=== PATIENT | male | born 1935 | race Caucasian/White ===

== ENCOUNTER 2016-05-02 08:34 | Day surgery (SDC) | payer MEDICARE, OTHER ==
[2016-04-29 13:28] VITALS: BMI 28.8
[~2016-05-02 08:34] MED LIST: HYDROmorphone 1 MG/ML 1 ML SYRINGE IVP PRN; LACTATED RINGERS 1,000 ML IV SCH; LIDOCAINE 1% 20 ML VIAL (10MG/ML) FOR IV START INTRADERMA PRN; ONDANSETRON 4 MG/2 ML VIAL IVP ONE; Pre Op ABX Message 1 EACH MISC MISCELLANE ONE
[2016-05-02 09:20] VITALS: TEMP 98.1
[2016-05-02 10:05] LABS: INR 1.5 (<1.1); Prothrombin Time 14.2 sec (9.0-12.0)
[2016-05-02] MEDS ORDERED: SODIUM CHLORIDE 0.9% IV ONE ×4 (10:45→11:26)
[2016-05-02] MEDS ORDERED: METHYLENE BLUE IV ONE ×4 (10:45→11:26)
[2016-05-02] MEDS ORDERED: ROCURONIUM BROMIDE 10 MG/ML 10 ML VIAL IV ONE (10:47)
[2016-05-02] MEDS ORDERED: PROPOFOL 10 MG/ML 20 ML VIAL IV ONE (10:47)
[2016-05-02] MEDS ORDERED: SUCCINYLCHOLINE CHLORIDE 100 MG/5 ML SYR IV ONE (10:47)
[2016-05-02] MEDS ORDERED: NEOSTIGMINE 1 MG/ML 10 ML VIAL ONE (10:47)
[2016-05-02] MEDS ORDERED: fentaNYL (PF) 50 MCG/ML 2 ML AMP ONE (10:47)
[2016-05-02] MEDS ORDERED: LIDOCAINE 1% INJ 10MG/ML (20 ML MDV) ONE (10:47)
[2016-05-02] MEDS ORDERED: MIDAZOLAM 2 MG/2 ML VIAL ONE (10:47)
[2016-05-02] MEDS ORDERED: GLYCOPYRROLATE 0.2 MG/ML 2 ML VIAL ONE (10:47)
[2016-05-02] MEDS ORDERED: SODIUM CHLORIDE 0.9% 100 ML with ceFAZolin 2,000 MG IV ONE ×2 (11:21)
[2016-05-02] MEDS ORDERED: CLINDAMYCIN 1,800 MG in SODIUM CHLORIDE 0.9% IRRIGATIO 3,000 ML IRRIGATION ONE (11:27)
[2016-05-02 12:57] VITALS: RESP 18
[2016-05-02 13:29] VITALS: PULSE 50
[2016-05-02 13:58] VITALS: BP 140/79
--- NOTE | 2016-05-03 15:36 | P.OP ---
Date of Procedure: 05/02/16 Procedure(s) Performed: PREOPERATIVE DIAGNOSES: 1. Left knee superficial chronic abscess 2. History of left knee replacement arthroplasty POSTOPERATIVE DIAGNOSES: 1. Left knee deep chronic abscess involving patellar bone but not into the joint 2. History of left knee replacement arthroplasty PROCEDURES PERFORMED: 1. Left knee deep chronic abscess excisional debridement 2. Open wet-to-dry packing ANESTHESIA: Spinal VALVE STEAMER: Lilian Fernandez PA-C (assistance with exposure, hemostasis, retraction, fixation, closure, dressing, splint) COMPLICATIONS: None ESTIMATED BLOOD LOSS: 25 mL. DISPOSITION: To post-anesthesia care unit INDICATIONS: Mr. Damico is a 76-year-old male with a history of bilateral knee replacement with chronic infection involving the right knee. He is on chronic suppressive antibiotics for this problem. His left knee has developed a superficial ulcer which has been draining for several weeks, despite office debridement and wet-to-dry packing performed by visiting nurse. Previous aspirations with cultures of his left knee intra-articular fluid have not revealed any evidence of infection of this joint. Considering these difficulties, I have advised formal operative debridement of the superficial abscess with possible placement of a wound VAC device. I have gone through the steps of the operation as well as potential risks and complications, as being inclusive of, but not limited to: Bleeding, infection, scarring, discomfort, blood vessel and/or nerve damage, need for further surgery, involvement of the left knee replacement arthroplasty in the infection, stiffness of the knee, need for continued chronic wound care, failure to heal the wound, loss of limb or life, and other risks. He is aware these risks and wishes to proceed with surgery. The consent form has been signed. PROCEDURE: After appropriate consent was obtained, the patient was taken to the operating room placed in the supine position. Anesthesia was initiated, and after confirmation of adequate anesthesia, the patient was carefully positioned. Care was taken to make sure that all pressure points were adequately padded. Prepping and draping were completed in the usual aseptic fashion using ChloraPrep. Timeout was called, confirming patient identity, side , procedure, and administration of antibiotics, which were held until after the debridement and further cultures had been performed.. The superficial abscess was approached through a midline longitudinal incision directly through the raised discolored skin and over the draining wound. Length of the incision was 5 cm. Gross pus was not encountered, however necrotic subcutaneous tissues were noted and were debrided sharply with a knife , excising necrotic fatty tissue and scar tissue/fascia. Dissection proceeded down to the patellar surface wear was noted that there was a small crater approximately 1 cm in size and the superficial anterior aspect of the bone. Careful evaluation of the area showed no evidence of deeper involvement into the joint. To be additionally sure that this abscess did not communicate with the joint, approximately 60 mL of saline marked with methylene blue dye was injected into the knee on the medial side and the knee was taken through range of motion. Careful evaluation of the patellofemoral joint and where the abscess was located showed no evidence of escape of dye. The dye was subsequently removed using a needle. The crater within the superficial aspect of the patella was thoroughly debrided using curettes as well as rongeur. The depth of the crater was approximately 5 mm. All suspicious material in the area was removed sharply and excised. Subsequent, thorough pulse lavage irrigation was performed using antibiotic containing solution. A wet-to-dry dressing was applied using iodoform gauze moistened with saline. No closure of the wound was performed. The wound was too small to allow a wound VAC to be applicable in this case. Patient tolerated the procedure well and taken to recovery room in stable condition. Sponge and needle counts were correct.
== END 2016-05-02 14:14 | disposition home health service (06) ==
LOC: OR 08:34
PROVIDERS: ATTEND Orthopaedic Surgery
DX: M86.68 Other chronic osteomyelitis, other site (principal); M71.062 Abscess of bursa, left knee; I10 Essential (primary) hypertension; K21.9 Gastro-esophageal reflux disease without esophagitis; F03.90 Unspecified dementia, unspecified severity, without behavioral disturbance, psychotic disturbance, mood disturbance, and anxiety; Z79.2 Long term (current) use of antibiotics; Z88.0 Allergy status to penicillin; Z88.8 Allergy status to other drugs, medicaments and biological substances; Z88.6 Allergy status to analgesic agent; Z91.040 Latex allergy status; Z86.718 Personal history of other venous thrombosis and embolism; Z79.01 Long term (current) use of anticoagulants; Z79.899 Other long term (current) drug therapy; Z96.653 Presence of artificial knee joint, bilateral
CPT/HCPCS: 11044; 85610; 87070; 87205; 87075; J2250; J2710; J2405; J2001; Q9968; J3010; J0690; J0330; J2704

== ENCOUNTER 2016-09-15 14:57 | Emergency (ER) | payer MEDICARE, OTHER ==
[2016-09-15] MEDS: SODIUM CHLORIDE 0.9% 1,000 ML IV STA (15:50)
[2016-09-15 15:51] LABS: Basophils # (A) 0.1 k/uL (0-0.2); Basophils % (A) 1 %; CH 27.5; CHCM 30.3; Eosinophils # (A) 0.1 k/uL (0-0.7); Eosinophils % (A) 2 %; HCT 36.2 % (39.0-53.0); HDW 3.33; HGB 10.7 gm/dL (13.0-17.5); Hypochromasia Marked; Luc # (Auto) 0.17; Luc % (Auto) 2; Lymphocytes # (A) 0.6 k/uL (1.0-4.8); Lymphocytes % (A) 7 %; MCHC 29.6 g/dL (31.0-37.0); MCV 91.2 fL (80.0-100.0); Mean Platelet Volume 7.6; Monocytes # (A) 0.6 k/uL (0-1.0); Monocytes % (A) 7 %; Neutrophils # (A) 7.3 k/uL (1.3-7.7); Neutrophils % (A) 83 %; RBC 3.97 m/uL (4.30-5.90); WBC 8.8 k/uL (3.8-10.6); WBC (Perox) 8.77
[2016-09-15 15:55] LABS: Partial Thromboplastin Time 54.3 sec (22.0-30.0)
--- NOTE | 2016-09-15 15:59 | ED ---
General Adult HPI - General Chief complaint: Recheck/Abnormal Lab/Rx Stated complaint: Heart Palps sent by Dr Candelaria Time Seen by Provider: 09/15/16 15:09 Source: patient, RN notes reviewed, old records reviewed Mode of arrival: wheelchair Limitations: no limitations - History of Present Illness Initial comments: This is a 80-year-old male to the ER for evaluation of weakness and low blood pressure. Patient has significant medical history for leg infections chronic wound care. Patient's infections have been persistent. No recent fevers. No Wallback chest fissures with her headache. Patient was found to have low blood pressure the normal at doctor's office and sent to ER. Presents he really felt off, now feels fine upon arrival to urgent patient states his blood pressure is much improved back to normal at this time. [place] recent episodes of nausea vomiting or diarrhea no fevers or medication changes - Related Data Home Medications Medication Instructions Recorded Confirmed Ascorbic Acid [Vitamin C] 1,000 mg PO DAILY@1700 09/09/13 05/02/16 Calcitriol 0.5 mcg PO DAILY@1700 09/09/13 05/02/16 Doxazosin [Cardura] 2 mg PO HS 09/09/13 05/02/16 Famotidine 40 mg PO DAILY 09/09/13 05/02/16 Ferrous Sulfate [Feosol] 325 mg PO DAILY@1700 09/09/13 05/02/16 Warfarin [Coumadin] 5 mg PO SUTUWETHFRSA@1700 09/09/13 05/02/16 Gabapentin [Neurontin] 900 mg PO HS 05/08/14 05/02/16 Gabapentin 600 mg PO BID@0600,1400 05/23/14 05/02/16 Cholecalciferol [Vitamin D3] 1,000 unit PO DAILY@1200 02/04/15 05/02/16 Multivitamins, Thera [Theragran] 1 each PO DAILY 02/04/15 05/02/16 Vitamin E 1,000 unit PO DAILY 02/04/15 05/02/16 Cefadroxil [Duricef] 500 mg PO Q12HR 04/29/16 05/02/16 Cetirizine HCl 10 mg PO DAILY 04/29/16 05/02/16 Previous Rx's Medication Instructions Recorded Hydrocodone/Acetaminophen [[place] 1 - 2 each PO Q6HR PRN #90 tab 05/13/14 5-325] HYDROcodone/APAP 5-325MG [[place] 5] 1 each PO Q4HR PRN #40 tab 05/02/16 Sennosides-Docusate Sodium 1 tab PO BID #60 tablet 05/02/16 [Senokot-S] Allergies Allergy/AdvReac Type Severity Reaction Status Date / Time aspirin AdvReac Unknown Verified 09/15/16 15:06 diphenhydramine AdvReac Unknown Verified 09/15/16 15:06 latex AdvReac Rash/Hives Verified 09/15/16 15:06 lorazepam [From Ativan] AdvReac Hallucinati Verified 09/15/16 15:06 ons Penicillins AdvReac Unknown Verified 09/15/16 15:06 Review of Systems ROS Statement: Those systems with pertinent positive or pertinent negative responses have been documented in the HPI. ROS Other: All systems not noted in ROS Statement are negative. Past Medical History Past Medical History: Dementia, Deep Vein Thrombosis (DVT), Osteoarthritis (OA) Additional Past Medical History / Comment(s): sepsis, neuropathy, PAST CELLULITIS, ANEMIA, lt hip fracture 05-11-14,rt.knee wounds, History of Any Multi-Drug Resistant Organisms: MRSA Date of last positivie culture/infection: 05-08-14 MDRO Source:: wound culture right leg Past Surgical History: Adenoidectomy, Appendectomy, Bowel Resection, Joint Replacement, Tonsillectomy Additional Past Surgical History / Comment(s): B\L knee replacements,bowel sx pt stated not cancer but ended up colostomy (2005), green field filter, orif lt hip, dino/screws, Past Anesthesia/Blood Transfusion Reactions: No Reported Reaction Past Psychological History: Depression Smoking Status: Never smoker Past Alcohol Use History: None Reported Past Drug Use History: None Reported - Past Family History Father Additional Family Medical History / Comment(s): at age 45 from cirrhosis of the liver. Mother Family Medical History: Dementia General Exam Limitations: no limitations General appearance: alert, in no apparent distress Head exam: Present: atraumatic, normocephalic, normal inspection Eye exam: Present: normal appearance, PERRL, EOMI. Absent: scleral icterus, conjunctival injection, periorbital swelling ENT exam: Present: normal exam, mucous membranes dry Neck exam: Present: normal inspection. Absent: tenderness, meningismus, lymphadenopathy Respiratory exam: Present: normal lung sounds bilaterally. Absent: respiratory distress, wheezes, rales, rhonchi, stridor Cardiovascular Exam: Present: normal rhythm, tachycardia, normal heart sounds. Absent: systolic murmur, diastolic murmur, rubs, gallop, clicks GI/Abdominal exam: Present: soft, normal bowel sounds. Absent: distended, tenderness, guarding, rebound, rigid Extremities exam: Present: normal inspection, full ROM, normal capillary refill. Absent: tenderness, pedal edema, joint swelling, calf tenderness Back exam: Present: normal inspection Neurological exam: Present: alert, oriented X3, CN II-XII intact Psychiatric exam: Present: normal affect, normal mood Skin exam: Present: warm, dry, intact, normal color. Absent: rash Course Vital Signs 09/15/16 09/15/16 15:03 15:52 Temperature 97.5 F L Pulse Rate 104 H 97 Respiratory 20 20 Rate Blood Pressure 112/70 115/77 O2 Sat by Pulse 99 99 Oximetry - Reevaluation(s) Reevaluation #1: 09/15/16 16:09 Blood pressure normal and stable, improving with fluid administration Medical Decision Making - Medical Decision Making 80 male in the ER for evaluation. Patient will return to the ER today for evaluation of low blood pressure. Patient had normal doctor's appointment today was noted to have low blood pressure and sent here for evaluation. Upon arrival to emergency room patient's blood pressure self-correct, patient has no complaints. No chest pain shortness breath or abdominal pain no fevers. Patient is to mild dehydration - Lab Data Result diagrams: 09/15/16 15:30 Lab Results 09/15/16 09/15/16 09/15/16 Range/Units 15:30 15:30 15:30 WBC 8.8 (3.8-10.6) k/uL RBC 3.97 L (4.30-5.90) m/uL Hgb 10.7 L (13.0-17.5) gm/dL Hct 36.2 L (39.0-53.0) % MCV 91.2 (80.0-100.0) fL MCH 27.0 (25.0-35.0) pg MCHC 29.6 L (31.0-37.0) g/dL RDW 16.0 H (11.5-15.5) % Plt Count 360 (150-450) k/uL Neutrophils % 83 % Lymphocytes % 7 % Monocytes % 7 % Eosinophils % 2 % Basophils % 1 % Neutrophils # 7.3 (1.3-7.7) k/uL Lymphocytes # 0.6 L (1.0-4.8) k/uL Monocytes # 0.6 (0-1.0) k/uL Eosinophils # 0.1 (0-0.7) k/uL Basophils # 0.1 (0-0.2) k/uL Hypochromasia Marked PT 52.5 H (9.0-12.0) sec INR 5.2 H* (<1.1) APTT 54.3 H (22.0-30.0) sec Total Creatine Kinase 44 L (55-170) U/L Disposition Clinical Impression: Abscess of leg, Cellulitis of leg Disposition: HOME SELF-CARE Condition: Good Instructions: Chronic Wound Care (ED) Referrals: Charly Garay MD [Primary Care Provider] - 1-2 days
[2016-09-15 16:00] LABS: Prothrombin Time 52.5 sec (9.0-12.0)
[2016-09-15 16:02] LABS: Calcium 8.6 mg/dL (8.4-10.2); Creatine Kinase 44 U/L (55-170); Magnesium 1.9 mg/dL (1.6-2.3); Phosphorous 2.5 mg/dL (2.5-4.5); Potassium 4.6 mmol/L (3.5-5.1); Total Bilirubin 0.2 mg/dL (0.2-1.3); Total Protein 5.9 g/dL (6.3-8.2)
[2016-09-15 16:04] LABS: INR 5.2 (<1.1)
[2016-09-15 16:15] LABS: Creatine Kinase MB 1.4 ng/mL (0.0-2.4); Troponin I <0.012 ng/mL (0.000-0.034)
[2016-09-15 17:26] LABS: Appearance,Urine Cloudy (Clear); Bilirubin,Urine Negative (Negative); Glucose,Urine (UA) Negative (Negative); Granular Casts,Urine 4 /lpf (0); Ketones,Urine Negative (Negative); Leukocyte Esterase,Urine Large (Negative); Mucus,Urine Rare /hpf; Nitrite,Urine Negative (Negative); PH, Urine 5.5 (5.0-8.0); Particle Count 5346; Protein,Urine 1+ (Negative); RBC,Urine 7 /hpf (0-5); Specific Gravity,Urine 1.014 (1.001-1.035); UA Billing (MACRO vs. MICRO) MICRO; Urobilinogen,Urine <2.0 mg/dL (<2.0); WBC,Urine >182 /hpf (0-5)
[2016-09-15 17:47] VITALS: RESP 18
[2016-09-15] MEDS: SODIUM CHLORIDE 0.9% 500 ML IV STA (18:39)
[2016-09-15 19:50] VITALS: BP 136/72; PULSE 79; TEMP 98
== END 2016-09-15 19:25 | disposition home or self-care (01) ==
LOC: EC 14:57
DX: L02.419 Cutaneous abscess of limb, unspecified (principal); L03.119 Cellulitis of unspecified part of limb; I95.9 Hypotension, unspecified; E86.0 Dehydration; R00.0 Tachycardia, unspecified; D64.9 Anemia, unspecified; Z79.01 Long term (current) use of anticoagulants; Z79.899 Other long term (current) drug therapy; Z88.0 Allergy status to penicillin; Z88.6 Allergy status to analgesic agent; Z88.8 Allergy status to other drugs, medicaments and biological substances; Z91.040 Latex allergy status; Z86.718 Personal history of other venous thrombosis and embolism
CPT/HCPCS: 36415; 93005; 80053; 82550; 82553; 83605; 83735; 84100; 84484; 85025; 85610; 85730; 81001; 87086; 99285; 96360; 96361; A4425

== ENCOUNTER → 2019-04-06 | Outpatient (CLI) | payer MEDICARE, OTHER | END | disposition home or self-care (01) | LOC: RADMRIMAIN 14:53 | PROVIDERS: ATTEND Internal Medicine Infectious Disease | DX: Z53.9 Procedure and treatment not carried out, unspecified reason (principal) ==

== ENCOUNTER 2019-05-30 10:12 | Emergency (ER) | payer MEDICARE, OTHER ==
[2019-05-30] MEDS ORDERED: ACETAMINOPHEN TAB 500 MG TAB PO STA (10:46)
[2019-05-30] MEDS ORDERED: LIDOCAINE/EPINEPHR/TETRACAINE 5 ML BOTTLE TOPICAL ONE (10:47)
[2019-05-30] MEDS ORDERED: GELATIN SPONGE,ABSORB (SMALL) 1 EACH SPONGE TOPICAL STA (10:47)
[2019-05-30] MEDS ORDERED: SILVER NITRATE APPLICATOR 1 EACH STICK..EA. TOPICAL STA (10:47)
--- NOTE | 2019-05-30 10:52 | ED ---
General Adult HPI - General Chief complaint: Skin/Abscess/Foreign Body Stated complaint: Open wound Time Seen by Provider: 05/30/19 10:34 Source: patient, RN notes reviewed, old records reviewed Mode of arrival: ambulatory Limitations: no limitations - History of Present Illness Initial comments: Patient is an 83-year-old male who presents emergency department today for evaluation for a bleeding the wound from his buttocks. Patient reports that he is a resident of [facility], and was at the outpatient surgery center to have aspiration of his right knee. Patient reports that Dr. Montalvo was scheduled him to do the ultrasound guided needle aspiration of the right knee. When they were in the waiting room the noted the Patient had significant amount of blood over his pants and buttocks and was sitting in a pool blood. He presents emergency department tachycardic feeling somewhat weak. He was having the needle aspiration for concern for possible infection within the right knee due to wounds over the knee and concern that the wounds are origninating from the joint infection. Patient has knee replacement. Patient is on blood thinners but didn't have to stop them for the past 5 days prior to the knee aspiration. - Related Data Home Medications Medication Instructions Recorded Confirmed Ascorbic Acid [Vitamin C] 500 mg PO DAILY@1700 09/09/13 05/23/19 Ferrous Sulfate [Feosol] 325 mg PO DAILY@1700 09/09/13 05/21/19 Gabapentin [Neurontin] 900 mg PO BID 05/08/14 05/23/19 Cholecalciferol [Vitamin D3] 1,000 unit PO DAILY@1200 02/04/15 05/21/19 Multivitamins, Thera [Theragran] 1 tab PO DAILY 02/04/15 05/21/19 Hydrocodone/Acetaminophen [[place] 1 tab PO TID PRN 09/15/16 05/23/19 5-325] Warfarin Sodium [Coumadin] 3 mg PO DAILY 09/15/16 05/21/19 Acetaminophen Tab [Tylenol] 650 mg PO Q4H 05/21/19 05/21/19 Doxepin [SINEquan] 50 mg PO HS 05/21/19 05/21/19 Doxycycline [Vibramycin] 100 mg PO BID 05/21/19 05/21/19 Famotidine [Pepcid] 20 mg PO DAILY 05/21/19 05/21/19 Furosemide [Lasix] 20 mg PO DAILY 05/21/19 05/21/19 Metoprolol Succinate [Toprol XL] 25 mg PO DAILY 05/21/19 05/21/19 Spironolactone [Aldactone] 25 mg PO DAILY 05/21/19 05/21/19 Sucralfate [Carafate] 1 gm PO BID 05/21/19 05/23/19 Tamsulosin HCl [Flomax] 0.4 mg PO DAILY 05/21/19 05/23/19 Bisacodyl [Dulcolax] 1 supp RECTAL RT-DAILY PRN 05/23/19 05/23/19 Bismuth Subsalicylate 1 tab PO BID PRN 05/23/19 05/23/19 [Pepto-Bismol] Furosemide [Lasix] 40 mg PO DAILY 05/23/19 05/23/19 Hydrocortisone Cream 1 applic TOPICAL BID PRN 05/23/19 05/23/19 [Hydrocortisone 1% Cream] Ipratropium-Albuterol Nebulize 1 neb INHALATION Q6HR PRN 05/23/19 05/23/19 [Duoneb 0.5 mg-3 mg/3 ml Soln] Mag Hydrox/Al Hydrox/Simeth 15 ml PO Q6HR PRN 05/23/19 05/23/19 [Maalox] Magnesium Hydroxide [Milk of 30 ml PO DAILY PRN 05/23/19 05/23/19 Magnesia Concentrate] Menthol-Zinc Oxide Oint 1 applic TOPICAL BID 05/23/19 05/23/19 [Calmoseptine Oint] Na Phos,M-B/Na Phos,Di-Ba [Fleet 1 applic RECTAL DAILY PRN 05/23/19 05/23/19 Adult] Iuqabpts-Jkbauhvmrd-Kygj Oint 1 applic TOPICAL DAILY 05/23/19 05/23/19 [Triple Antibiotic Ointment] Non Formulary Drug 500 mg PO BID 05/23/19 05/23/19 Nystatin [Nystop] 1 applic TOPICAL BID 05/23/19 05/23/19 Polyvinyl Alcohol/Povidone 1 drop BOTH EYES BID PRN 05/23/19 05/23/19 [Freshkote Eye Drop] Triamcinolone 0.1% Ointment 1 applic TOPICAL BID 05/23/19 05/23/19 [Kenalog 0.1% Ointment] Previous Rx's Medication Instructions Recorded Cephalexin [Keflex] 500 mg PO Q6HR 7 Days #28 cap 05/30/19 Allergies Allergy/AdvReac Type Severity Reaction Status Date / Time aspirin AdvReac Unknown Verified 05/23/19 12:45 diphenhydramine AdvReac Unknown Verified 05/23/19 12:45 latex AdvReac Rash/Hives Verified 05/23/19 12:45 lorazepam [From Ativan] AdvReac Hallucinati Verified 05/23/19 12:45 ons Penicillins AdvReac Unknown Verified 05/23/19 12:45 Review of Systems ROS Statement: Those systems with pertinent positive or pertinent negative responses have been documented in the HPI. ROS Other: All systems not noted in ROS Statement are negative. Past Medical History Past Medical History: Atrial Fibrillation, Chest Pain / Angina, Dementia, Deep Vein Thrombosis (DVT), GERD/Reflux, Osteoarthritis (OA), Renal Disease Additional Past Medical History / Comment(s): sepsis, neuropathy, PAST CELLULITIS, ANEMIA, lt hip fracture 05-11-14,rt.knee wounds, vitamin D deficiency, weakness,BPH, History of Any Multi-Drug Resistant Organisms: MRSA Date of last positivie culture/infection: 11/24/16 MDRO Source:: Right Knee Past Surgical History: Adenoidectomy, Appendectomy, Bowel Resection, Joint Replacement, Tonsillectomy Additional Past Surgical History / Comment(s): B\L knee replacements,bowel sx pt stated not cancer but ended up colostomy (2005), green field filter, orif lt hip, dino/screws, Past Anesthesia/Blood Transfusion Reactions: No Reported Reaction Past Psychological History: Depression Smoking Status: Never smoker Past Alcohol Use History: Rare Past Drug Use History: None Reported - Past Family History Father Additional Family Medical History / Comment(s): at age 45 from cirrhosis of the liver. Mother Family Medical History: Dementia General Exam - General Exam Comments Initial Comments: 83-year-old male. Alert and oriented. Limitations: no limitations General appearance: alert, in no apparent distress Head exam: Present: atraumatic, normocephalic, normal inspection Eye exam: Present: normal appearance, PERRL, EOMI. Absent: scleral icterus, conjunctival injection, periorbital swelling ENT exam: Present: normal exam, mucous membranes moist Neck exam: Present: normal inspection. Absent: tenderness, meningismus, lymphadenopathy Respiratory exam: Present: normal lung sounds bilaterally. Absent: respiratory distress, wheezes, rales, rhonchi, stridor Cardiovascular Exam: Present: regular rate, normal rhythm, normal heart sounds. Absent: systolic murmur, diastolic murmur, rubs, gallop, clicks GI/Abdominal exam: Present: soft, normal bowel sounds, other (colostomy bag). Absent: distended, tenderness, guarding, rebound, rigid exam: Present: other (Patient has evidence of pressure ulcers over the buttocks. Patient has an open bleeding sore on the upper buttocks the left side.). Absent: normal inspection Extremities exam: Present: normal inspection, full ROM, normal capillary refill, other (Patient has 2 wounds over the right knee. Patient has redness and swelling to the right knee.). Absent: tenderness, pedal edema, joint swelling, calf tenderness Back exam: Present: normal inspection, full ROM Neurological exam: Present: alert, oriented X3, CN II-XII intact Psychiatric exam: Present: normal affect, normal mood Skin exam: Present: warm, dry, intact, normal color. Absent: rash Course Vital Signs 05/30/19 05/30/19 05/30/19 10:20 11:00 12:00 Temperature 98.2 F Pulse Rate 128 H 112 H 87 Respiratory 18 18 18 Rate Blood Pressure 140/88 123/87 102/73 O2 Sat by Pulse 98 100 Oximetry 05/30/19 05/30/19 05/30/19 13:00 14:00 15:00 Temperature Pulse Rate 91 100 96 Respiratory 17 18 17 Rate Blood Pressure 116/72 141/88 105/70 O2 Sat by Pulse Oximetry 05/30/19 05/30/19 05/30/19 16:00 17:00 18:00 Temperature 98.3 F Pulse Rate 88 89 88 Respiratory 18 18 18 Rate Blood Pressure 113/78 122/70 127/75 O2 Sat by Pulse Oximetry EKG Findings - EKG Comments: EKG Findings:: EKG performed at 1024 shows sinus tachycardia, left axis deviation. Right bundle lavonne block.. Prior to the anterolateral infarct age undetermined. Ventricular rate of 123 beats were minute. Pulse 184 ms. QRS duration is 122 ms. QT QTc is 286/409 ms. Medical Decision Making - Medical Decision Making Patient is an 9-year-old male who presents emergency Department today from outpatient setting with complaints of a bleeding wound over his buttocks. Patient had the wound cauterized with silver nitrate and wound was bleeding was controlled after lidocaine with epinephrine placement as well. Patient tolerated procedure well. Patient arrived to the emergency department somewhat tachycardic. Concern for possible blood loss related tachycardia. Patient's b lood work was obtained. Hemoglobin is stable. White blood cell count was normal at 5.4. He was sent for all Patient also sher sound guided the aspiration. He had stopped his Coumadin for a few days to have this done. This was completed emergency department by Dr. Ace. I discussed the concern for possibility of infection as well as related tachycardia. He does have evidence of urinary tract infection. Patient was given 1 g of Rocephin and emergency department. Blood cultures will completed. Patient's knee aspiration shows 3000 PMNs. It was synovial fluid in serous. No syncope and pus on the aspiration. Patient case was discussed with Dr. Montalvo's orthopedic. He discussed that he can follow-up with him out patiently. Patient will be started on broad-spectrum antibiotic. We discussed the case with Dr. Sánchez whom did not want to admit the Patient. - Lab Data Result diagrams: 05/30/19 10:34 05/30/19 10:34 Lab Results 05/30/19 05/30/19 05/30/19 Range/Units 10:34 10:34 10:34 WBC 5.8 (3.8-10.6) k/uL RBC 5.24 (4.30-5.90) m/uL Hgb 14.2 D (13.0-17.5) gm/dL Hct 48.6 (39.0-53.0) % MCV 92.8 (80.0-100.0) fL MCH 27.1 (25.0-35.0) pg MCHC 29.2 L (31.0-37.0) g/dL RDW 16.0 H (11.5-15.5) % Plt Count 152 (150-450) k/uL Neutrophils % 73 % Lymphocytes % 10 % Monocytes % 9 % Eosinophils % 3 % Basophils % 0 % Neutrophils # 4.2 (1.3-7.7) k/uL Lymphocytes # 0.6 L (1.0-4.8) k/uL Monocytes # 0.5 (0-1.0) k/uL Eosinophils # 0.2 (0-0.7) k/uL Basophils # 0.0 (0-0.2) k/uL Hypochromasia Marked ESR (0-15) mm/hr PT 13.1 H (9.0-12.0) sec INR 1.3 H (<1.2) APTT 27.1 (22.0-30.0) sec Sodium (137-145) mmol/L Potassium (3.5-5.1) mmol/L Chloride (98-107) mmol/L Carbon Dioxide (22-30) mmol/L Anion Gap mmol/L BUN (9-20) mg/dL Creatinine (0.66-1.25) mg/dL Est GFR (CKD-EPI)AfAm (>60 ml/min/1.73 sqM) Est GFR (CKD-EPI)NonAf (>60 ml/min/1.73 sqM) Glucose (74-99) mg/dL Plasma Lactic Acid Jacky (0.7-2.0) mmol/L Calcium (8.4-10.2) mg/dL Total Bilirubin (0.2-1.3) mg/dL AST (17-59) U/L ALT (4-49) U/L Alkaline Phosphatase (38-126) U/L Total Protein (6.3-8.2) g/dL Albumin (3.5-5.0) g/dL Urine Color Urine Appearance (Clear) Urine pH (5.0-8.0) Ur Specific [place] (1.001-1.035) Urine Protein (Negative) Urine Glucose (UA) (Negative) Urine Ketones (Negative) Urine Blood (Negative) Urine Nitrite (Negative) Urine Bilirubin (Negative) Urine Urobilinogen (<2.0) mg/dL Ur Leukocyte Esterase (Negative) Urine RBC (0-5) /hpf Urine WBC (0-5) /hpf Urine WBC Clumps (None) /hpf Ur Squamous Epith Cells (0-4) /hpf Urine Bacteria (None) /hpf Urine Mucus (None) /hpf Fluid Source Fluid Color Fluid Appearance Fluid RBC /uL Fluid Nucleated Cells /uL Fluid Polynuclear WBCs % Fluid Mononuclear WBCs % Blood Type B Positive Blood Type Recheck B Pos Bld Type Recheck Status No Antibody Screen NEGATIVE Spec Expiration Date 06/02/2019233305/30/19 05/30/19 05/30/19 Range/Units 10:34 10:34 12:05 WBC (3.8-10.6) k/uL RBC (4.30-5.90) m/uL Hgb (13.0-17.5) gm/dL Hct (39.0-53.0) % MCV (80.0-100.0) fL MCH (25.0-35.0) pg MCHC (31.0-37.0) g/dL RDW (11.5-15.5) % Plt Count (150-450) k/uL Neutrophils % % Lymphocytes % % Monocytes % % Eosinophils % % Basophils % % Neutrophils # (1.3-7.7) k/uL Lymphocytes # (1.0-4.8) k/uL Monocytes # (0-1.0) k/uL Eosinophils # (0-0.7) k/uL Basophils # (0-0.2) k/uL Hypochromasia ESR 58 H (0-15) mm/hr PT (9.0-12.0) sec INR (<1.2) APTT (22.0-30.0) sec Sodium 137 (137-145) mmol/L Potassium 5.4 H (3.5-5.1) mmol/L Chloride 110 H (98-107) mmol/L Carbon Dioxide 16 L (22-30) mmol/L Anion Gap 11 mmol/L BUN 36 H (9-20) mg/dL Creatinine 2.32 H (0.66-1.25) mg/dL Est GFR (CKD-EPI)AfAm 29 (>60 ml/min/1.73 sqM) Est GFR (CKD-EPI)NonAf 25 (>60 ml/min/1.73 sqM) Glucose 115 H (74-99) mg/dL Plasma Lactic Acid Jacky 1.5 (0.7-2.0) mmol/L Calcium 9.1 (8.4-10.2) mg/dL Total Bilirubin 0.3 (0.2-1.3) mg/dL AST 24 (17-59) U/L ALT 13 (4-49) U/L Alkaline Phosphatase 73 (38-126) U/L Total Protein 6.8 (6.3-8.2) g/dL Albumin 3.2 L (3.5-5.0) g/dL Urine Color Urine Appearance (Clear) Urine pH (5.0-8.0) Ur Specific [place] (1.001-1.035) Urine Protein (Negative) Urine Glucose (UA) (Negative) Urine Ketones (Negative) Urine Blood (Negative) Urine Nitrite (Negative) Urine Bilirubin (Negative) Urine Urobilinogen (<2.0) mg/dL Ur Leukocyte Esterase (Negative) Urine RBC (0-5) /hpf Urine WBC (0-5) /hpf Urine WBC Clumps (None) /hpf Ur Squamous Epith Cells (0-4) /hpf Urine Bacteria (None) /hpf Urine Mucus (None) /hpf Fluid Source Fluid Color Fluid Appearance Fluid RBC /uL Fluid Nucleated Cells /uL Fluid Polynuclear WBCs % Fluid Mononuclear WBCs % Blood Type Blood Type Recheck Bld Type Recheck Status Antibody Screen Spec Expiration Date 05/30/19 05/30/19 Range/Units 12:45 15:40 WBC (3.8-10.6) k/uL RBC (4.30-5.90) m/uL Hgb (13.0-17.5) gm/dL Hct (39.0-53.0) % MCV (80.0-100.0) fL MCH (25.0-35.0) pg MCHC (31.0-37.0) g/dL RDW (11.5-15.5) % Plt Count (150-450) k/uL Neutrophils % % Lymphocytes % % Monocytes % % Eosinophils % % Basophils % % Neutrophils # (1.3-7.7) k/uL Lymphocytes # (1.0-4.8) k/uL Monocytes # (0-1.0) k/uL Eosinophils # (0-0.7) k/uL Basophils # (0-0.2) k/uL Hypochromasia ESR (0-15) mm/hr PT (9.0-12.0) sec INR (<1.2) APTT (22.0-30.0) sec Sodium (137-145) mmol/L Potassium (3.5-5.1) mmol/L Chloride (98-107) mmol/L Carbon Dioxide (22-30) mmol/L Anion Gap mmol/L BUN (9-20) mg/dL Creatinine (0.66-1.25) mg/dL Est GFR (CKD-EPI)AfAm (>60 ml/min/1.73 sqM) Est GFR (CKD-EPI)NonAf (>60 ml/min/1.73 sqM) Glucose (74-99) mg/dL Plasma Lactic Acid Jacky (0.7-2.0) mmol/L Calcium (8.4-10.2) mg/dL Total Bilirubin (0.2-1.3) mg/dL AST (17-59) U/L ALT (4-49) U/L Alkaline Phosphatase (38-126) U/L Total Protein (6.3-8.2) g/dL Albumin (3.5-5.0) g/dL Urine Color Yellow Urine Appearance Cloudy (Clear) Urine pH 5.0 (5.0-8.0) Ur Specific [place] 1.017 (1.001-1.035) Urine Protein 1+ H (Negative) Urine Glucose (UA) Negative (Negative) Urine Ketones Negative (Negative) Urine Blood Moderate H (Negative) Urine Nitrite Negative (Negative) Urine Bilirubin Negative (Negative) Urine Urobilinogen <2.0 (<2.0) mg/dL Ur Leukocyte Esterase Large H (Negative) Urine RBC 134 H (0-5) /hpf Urine WBC >182 H (0-5) /hpf Urine WBC Clumps Many H (None) /hpf Ur Squamous Epith Cells <1 (0-4) /hpf Urine Bacteria Rare H (None) /hpf Urine Mucus Rare H (None) /hpf Fluid Source Synovial Fluid Color Yellow Fluid Appearance Hazy Fluid RBC 1195 /uL Fluid Nucleated Cells 2990 /uL Fluid Polynuclear WBCs 96 % Fluid Mononuclear WBCs 4 % Blood Type Blood Type Recheck Bld Type Recheck Status Antibody Screen Spec Expiration Date 05/30/19 10:52 EKG performed at 10:24 AM shows sinus tachycardia, left axis deviation. Right bundle branch block. Inferior infarct age undetermined. Anterolateral infarct age-indeterminate. Abnormal EKG. Disposition Clinical Impression: Bleeding from wound, UTI (urinary tract infection), Chronic knee pain Disposition: ADMITTED IP TO THIS HOSP Condition: Stable Instructions (If sedation given, give patient instructions): Urinary Tract Infection in Men (ED) Additional Instructions: Patient advised to take the antibiotic as prescribed. Recommended follow-up with orthopedic next week. Take the antibiotics as prescribed and resume Coumadin. Prescriptions: Cephalexin [Keflex] 500 mg PO Q6HR 7 Days #28 cap Is patient prescribed a controlled substance at d/c from ED?: No Referrals: Dwayne Coreas MD [Primary Care Provider] - 1-2 days Time of Disposition: 18:30
[2019-05-30] MEDS ORDERED: SODIUM CHLORIDE 0.9% 1,000 ML IV SCH (11:00)
[2019-05-30 11:14] LABS: Basophils % (A) 0 %; Eosinophils # (A) 0.2 k/uL (0-0.7); Eosinophils % (A) 3 %; HCT 48.6 % (39.0-53.0); Hypochromasia Marked; Lymphocytes # (A) 0.6 k/uL (1.0-4.8); Lymphocytes % (A) 10 %; MCH 27.1 pg (25.0-35.0); MCHC 29.2 g/dL (31.0-37.0); MCV 92.8 fL (80.0-100.0); Mean Platelet Volume 6.7; Monocytes # (A) 0.5 k/uL (0-1.0); Monocytes % (A) 9 %; Neutrophils # (A) 4.2 k/uL (1.3-7.7); Neutrophils % (A) 73 %; Platelet Count 152 k/uL (150-450); RBC 5.24 m/uL (4.30-5.90); WBC 5.8 k/uL (3.8-10.6)
[2019-05-30] MEDS: SODIUM CHLORIDE 0.9% 500 ML 500 ML IV SCH ×2 (11:17→12:56)
[2019-05-30 11:18] LABS: Albumin 3.2 g/dL (3.5-5.0); Calcium 9.1 mg/dL (8.4-10.2); Potassium 5.4 mmol/L (3.5-5.1); Total Bilirubin 0.3 mg/dL (0.2-1.3); Total Protein 6.8 g/dL (6.3-8.2)
[2019-05-30 11:23] LABS: HGB 14.2 gm/dL (13.0-17.5)
[2019-05-30 11:27] LABS: INR 1.3 (<1.2); Partial Thromboplastin Time 27.1 sec (22.0-30.0); Prothrombin Time 13.1 sec (9.0-12.0)
[2019-05-30 13:20] LABS: Appearance,Urine Cloudy (Clear); Bacteria,Urine Rare /hpf; Bilirubin,Urine Negative (Negative); Blood,Urine Moderate (Negative); Color,Urine Yellow; Glucose,Urine (UA) Negative (Negative); Ketones,Urine Negative (Negative); Leukocyte Esterase,Urine Large (Negative); Mucus,Urine Rare /hpf; Nitrite,Urine Negative (Negative); Protein,Urine 1+ (Negative); RBC,Urine 134 /hpf (0-5); Specific Gravity,Urine 1.017 (1.001-1.035); Squamous Epithelial Cell,Urine <1 /hpf (0-4); Urobilinogen,Urine <2.0 mg/dL (<2.0); WBC,Urine >182 /hpf (0-5)
[2019-05-30] MEDS ORDERED: cefTRIAXone IN SWFI 1,000 MG/10 ML SYRINGE IVP STA (13:36)
[2019-05-30] MEDS ORDERED: DILTIAZEM DRIP BOLUS FROM BAG 1 MG SOLN IV ONE (15:52)
[2019-05-30] MEDS ORDERED: MORPHINE SULFATE 2 MG/ML SYRINGE IVP ONE (16:31)
[2019-05-30 17:45] LABS: Appearance,BF Hazy; Color,BF Yellow; Nucleated Cells, Body Fluid 2990 /uL; RBC, Body Fluid 1195 /uL
[2019-05-30 18:06] VITALS: RESP 18; TEMP 98.3
[2019-05-30 18:23] LABS: Mononuclear WBC,Body Fluid 4 %; Polynuclear WBC,Body Fluid 96 %; Total Cells Counted,Body Fluid 100
[2019-05-30 18:30] VITALS: BP 129/80; PULSE 80
--- NOTE | 2019-05-30 22:11 | US ---
Ultrasound guided right knee aspiration Date: 05/30/2019 History 83-year-old male with right total knee arthroplasty referred for aspiration. T84.59XA PROCEDURE: 1. Ultrasound of the right knee. 2. Arthrocentesis with ultrasound guidance. Technique: The procedure, risks, and alternatives, were discussed with the patient, who requested joi t we proceed. The consent form was signed, and teach-back occurred. The site/side of the procedure wa s marked with a line with participation by the patient. The accompanying paperwork was verified for c onsistency. A directed history and physical exam was performed prior to the procedure. Medication rec onciliation was performed by ancillary personnel. A critical pause was performed with assisting vamshi barnett just prior to the procedure and the patient's identity was confirmed using 2 identifiers. Imagin g guidance was utilized to select the precise skin entry point just prior to the procedure, lateral a pproach to the suprapatellar pouch. Initial ultrasound images demonstrate moderate hypoechogenicity in the suprapatellar pouch. This is t argeted for aspiration. Right knee was prepped and draped in the usual sterile fashion and local 1% lidocaine anesthesia was instilled. Under ultrasound guidance, an 18 gauge spinal needle was introduced into the suprapatellar pouch of t he right knee joint. There was the sensation of traversing very thickened tissues when entering the p resumed joint fluid. Ultrasound confirmed the position of the needle tip. Aspiration yielded no fluid. Needle tip was repositioned multiple times. Subsequently, 10 mL of prese rvative free, sterile saline was injected into the joint and the wash was aspirated. A total of 7 mL of yellow-tinged fluid was successfully aspirated. The specimen was labeled and sent to the lab for r equested analysis. The needle was then removed. The patient tolerated the procedure well. There were no immediate complications. After the procedure, the patient's condition was unchanged. Es timated blood loss was minimal. IMPRESSION: Presumed moderate joint effusion would not return any aspirate. This was comprised of very thickened tissue, possibly granulation tissue. However, 7 mL of yellow-tinged wash was successfully aspirated a nd sent for laboratory analysis.
== END 2019-05-30 18:31 | disposition other institution (70) ==
LOC: EC 10:12
DX: S31.829A Unspecified open wound of left buttock, initial encounter (principal); N39.0 Urinary tract infection, site not specified; G89.29 Other chronic pain; M25.561 Pain in right knee; R00.0 Tachycardia, unspecified; F32.9 Major depressive disorder, single episode, unspecified; K21.9 Gastro-esophageal reflux disease without esophagitis; D64.9 Anemia, unspecified; E55.9 Vitamin D deficiency, unspecified; F03.90 Unspecified dementia, unspecified severity, without behavioral disturbance, psychotic disturbance, mood disturbance, and anxiety; I48.91 Unspecified atrial fibrillation; N40.0 Benign prostatic hyperplasia without lower urinary tract symptoms; I25.2 Old myocardial infarction; G62.9 Polyneuropathy, unspecified; M19.90 Unspecified osteoarthritis, unspecified site; Z79.01 Long term (current) use of anticoagulants; Z79.899 Other long term (current) drug therapy; Z88.6 Allergy status to analgesic agent; Z88.8 Allergy status to other drugs, medicaments and biological substances; Z88.0 Allergy status to penicillin; Z86.14 Personal history of Methicillin resistant Staphylococcus aureus infection; Z86.718 Personal history of other venous thrombosis and embolism; Z96.653 Presence of artificial knee joint, bilateral; Z93.3 Colostomy status; X58.XXXA Exposure to other specified factors, initial encounter
CPT/HCPCS: 36415; 93005; 86900; 86901; 89060; 80053; 85652; 89050; 83605; 85025; 85610; 85730; 86850; 81001; 87040; 87070; 87086; 87205; 87075; 87102; 87077; 87186; 20611; 99285; 96374; 96375; 96361 ×6; J0696; J2270

== ENCOUNTER 2019-08-29 12:00 | Inpatient (IN) | payer MEDICARE, OTHER ==
[2019-08-29] MEDS ORDERED: DILTIAZEM DRIP BOLUS FROM BAG 1 MG SOLN IV ONE (12:10)
--- NOTE | 2019-08-29 12:17 | ED ---
General Adult HPI - General Chief complaint: Arrhythmia/Palpitations Stated complaint: Syncope Time Seen by Provider: 08/29/19 12:00 Source: patient, RN notes reviewed, old records reviewed Mode of arrival: EMS Limitations: no limitations - History of Present Illness Initial comments: This is an 83-year-old male who presents emergency Department feeling weak and lightheaded when he stands. According to the paramedics he was found to be in atrial fibrillation with rapid ventricular response and felt comfortable when he is lying down but as soon as he stood up he felt very lightheaded. Patient denies any chest pain shortness of breath or difficulty breathing. Patient denies any headache patient denies any numbness or focal weakness. Patient de nies any recent fever chills or cough. Patient denies any abdominal pain patient denies any nausea or vomiting or diarrhea. - Related Data Home Medications Medication Instructions Recorded Confirmed Ascorbic Acid [Vitamin C] 500 mg PO DAILY 09/09/13 08/29/19 Ferrous Sulfate [Feosol] 325 mg PO DAILY 09/09/13 08/29/19 Gabapentin [Neurontin] 300 mg PO BID@0800,1700 05/08/14 08/29/19 Cholecalciferol [Vitamin D3] 1,000 unit PO DAILY 02/04/15 08/29/19 Multivitamins, Thera [Theragran] 1 tab PO DAILY 02/04/15 08/29/19 Hydrocodone/Acetaminophen [[place] 1 tab PO HS 09/15/16 08/29/19 5-325] Doxycycline [Vibramycin] 100 mg PO BID@1000,1900 05/21/19 08/29/19 Famotidine [Pepcid] 20 mg PO DAILY 05/21/19 08/29/19 Furosemide [Lasix] 20 mg PO Q48H 05/21/19 08/29/19 Metoprolol Succinate [Toprol XL] 25 mg PO DAILY 05/21/19 08/29/19 Spironolactone [Aldactone] 25 mg PO DAILY 05/21/19 08/29/19 Sucralfate [Carafate] 1 gm PO DAILY@1700 05/21/19 08/29/19 Tamsulosin HCl [Flomax] 0.4 mg PO BID 05/21/19 08/29/19 Bisacodyl [Dulcolax] 10 mg RECTAL DAILY PRN 05/23/19 08/29/19 Ipratropium-Albuterol Nebulize 3 ml INHALATION RT-Q6H PRN 05/23/19 08/29/19 [Duoneb 0.5 mg-3 mg/3 ml Soln] Mag Hydrox/Al Hydrox/Simeth 15 ml PO Q6HR PRN 05/23/19 08/29/19 [Maalox] Magnesium Hydroxide [Milk of 30 ml PO DAILY PRN 05/23/19 08/29/19 Magnesia Concentrate] Na Phos,M-B/Na Phos,Di-Ba [Fleet 1 applic RECTAL DAILY PRN 05/23/19 08/29/19 Adult] Polyvinyl Alcohol/Povidone 1 drop BOTH EYES BID@0800,169905/23/19 08/29/19 [Freshkote Eye Drop] Triamcinolone 0.1% Ointment 1 applic TOPICAL BID PRN 05/23/19 08/29/19 [Kenalog 0.1% Ointment] ALPRAZolam [Xanax] 0.25 mg PO HS 08/29/19 08/29/19 Acetaminophen [Tylenol 8 Hour] 650 mg PO Q4H PRN 08/29/19 08/29/19 Doxepin HCl [SINEquan] 50 mg PO HS 08/29/19 08/29/19 Ertapenem [INVanz] 500 mg IVPB DAILY@169908/29/19 08/29/19 Furosemide [Lasix] 40 mg PO Q48H 08/29/19 08/29/19 Gabapentin 600 mg PO BID@0800,169908/29/19 08/29/19 HYDROcodone/APAP 5-325MG [[place] 1 tab PO Q8H PRN 08/29/19 08/29/19 5-325] Lactose-Reduced Food [Ensure Plus] 237 ml PO DAILY 08/29/19 08/29/19 Menthol [Biofreeze] 1 applic TOPICAL BID@0800,169908/29/19 08/29/19 Niacinamide 500 mg PO BID@0800,1700 08/29/19 08/29/19 Pepto-Bismol Tablet 1 tab PO BID PRN 08/29/19 08/29/19 Rivastigmine Tartrate [Exelon] 3 mg PO BID 08/29/19 08/29/19 Vitamins A and D [Vitamin A and D] 1 applic TOPICAL TID 08/29/19 08/29/19 Warfarin [Coumadin] 2 mg PO SUMOTUTH@1700 08/29/19 08/29/19 Warfarin [Coumadin] 3 mg PO WEFRSA@1700 08/29/19 08/29/19 Allergies Allergy/AdvReac Type Severity Reaction Status Date / Time aspirin Allergy Unknown Verified 08/29/19 12:34 diphenhydramine Allergy Unknown Verified 08/29/19 12:34 latex Allergy Rash/Hives Verified 08/29/19 12:34 Penicillins Allergy Unknown Verified 08/29/19 12:34 lorazepam [From Ativan] AdvReac Hallucinati Verified 08/29/19 12:34 ons Review of Systems ROS Statement: Those systems with pertinent positive or pertinent negative responses have been documented in the HPI. ROS Other: All systems not noted in ROS Statement are negative. Past Medical History Past Medical History: Atrial Fibrillation, Chest Pain / Angina, Dementia, Deep Vein Thrombosis (DVT), GERD/Reflux, Osteoarthritis (OA), Renal Disease Additional Past Medical History / Comment(s): sepsis, neuropathy, PAST CELLULITIS, ANEMIA, lt hip fracture 05-11-14,rt.knee wounds, vitamin D defic iency, weakness,BPH, History of Any Multi-Drug Resistant Organisms: ESBL, MRSA Date of last positivie culture/infection: 08/26/19 ESBL 11/24/16 MRSA MDRO Source:: ESBL URINE MRSA KNEE Past Surgical History: Adenoidectomy, Appendectomy, Bowel Resection, Joint Replacement, Tonsillectomy Additional Past Surgical History / Comment(s): B\L knee replacements,bowel sx pt stated not cancer but ended up colostomy (2005), green field filter, orif lt hip, dino/screws, Past Anesthesia/Blood Transfusion Reactions: No Reported Reaction Past Psychological History: Depression Smoking Status: Never smoker Past Alcohol Use History: Rare Past Drug Use History: None Reported - Past Family History Father Additional Family Medical History / Comment(s): at age 45 from cirrhosis of the liver. Mother Family Medical History: Dementia General Exam - General Exam Comments Initial Comments: GENERAL: Patient is well-developed and well-nourished. Patient is nontoxic and well- hydrated and is in no acute distress. ENT: Neck is soft and supple. No significant lymphadenopathy is noted. Oropharynx is clear. Moist mucous membranes. Neck has full range of motion without eliciting any pain. EYES: The sclera were anicteric and conjunctiva were pink and moist. Extraocular movements were intact and pupils were equal round and reactive to light. Eyelids were unremarkable. PULMONARY: Unlabored respirations. Good breath sounds bilaterally. No audible rales rhonchi or wheezing was noted. CARDIOVASCULAR: Patient has an irregular heartbeat at approximately 150 beats a minute ABDOMEN: Soft and nontender with normal bowel sounds. SKIN: Skin is clear with no lesions or rashes and otherwise unremarkable. NEUROLOGIC: Patient is alert and oriented x3. Cranial nerves II through XII are grossly i ntact. Motor and sensory are also intact. Normal speech, volume and content. Symmetrical smile. MUSCULOSKELETAL: Normal extremities with adequate strength and full range of motion. No lower extremity swelling or edema. No calf tenderness. LYMPHATICS: No significant lymphadenopathy is noted PSYCHIATRIC: Normal psychiatric evaluation. Limitations: no limitations Course Vital Signs 08/29/19 08/29/19 08/29/19 12:04 12:07 13:08 Temperature 98.1 F Pulse Rate 146 H 114 H Pulse Rate [ 144 H Supine] Respiratory 20 Rate Blood Pressure 106/83 124/88 O2 Sat by Pulse 95 Oximetry Medical Decision Making - Medical Decision Making EKG shows atrial fibrillation with rapid ventricular response at a rate of 140 bpm QRS on a 14 QT interval is 266 QTC is 417. EKG shows no ST segment elevation Patient was placed on Cardizem after Cardizem bolus. Patient's potassium came back elevated patient was given Kayexalate and calcium chloride. I went back into reevaluate the patient patient's heart rate at this time was 110 beats a minute. I spoke with Dr. Baez she agreed to admit the patient admitted the patient I consult cardiology as well as nephrology for the elevated creatinine. - Lab Data Result diagrams: 08/29/19 12:15 08/29/19 12:15 Lab Results 08/29/19 08/29/19 08/29/19 Range/Units 12:15 12:15 12:15 WBC 12.7 H (3.8-10.6) k/uL RBC 3.82 L (4.30-5.90) m/uL Hgb 11.0 L (13.0-17.5) gm/dL Hct 39.1 (39.0-53.0) % MCV 102.3 H (80.0-100.0) fL MCH 28.7 (25.0-35.0) pg MCHC 28.1 L (31.0-37.0) g/dL RDW 17.6 H (11.5-15.5) % Plt Count 215 (150-450) k/uL Neutrophils % 88 % Lymphocytes % 3 % Monocytes % 7 % Eosinophils % 0 % Basophils % 0 % Neutrophils # 11.1 H (1.3-7.7) k/uL Lymphocytes # 0.3 L (1.0-4.8) k/uL Monocytes # 0.9 (0-1.0) k/uL Eosinophils # 0.0 (0-0.7) k/uL Basophils # 0.0 (0-0.2) k/uL Manual Slide Review Performed Polychromasia Present Hypochromasia Marked Poikilocytosis (manual Present Anisocytosis Slight Macrocytosis Moderate PT 24.6 H (9.0-12.0) sec INR 2.5 H (<1.2) APTT 37.3 H (22.0-30.0) sec Sodium 135 L (137-145) mmol/L Potassium 5.8 H (3.5-5.1) mmol/L Chloride 112 H (98-107) mmol/L Carbon Dioxide 15 L (22-30) mmol/L Anion Gap 8 mmol/L BUN 57 H (9-20) mg/dL Creatinine 2.50 H (0.66-1.25) mg/dL Est GFR (CKD-EPI)AfAm 27 (>60 ml/min/1.73 sqM) Est GFR (CKD-EPI)NonAf 23 (>60 ml/min/1.73 sqM) Glucose 192 H (74-99) mg/dL Calcium 9.6 (8.4-10.2) mg/dL Magnesium 1.9 (1.6-2.3) mg/dL Total Bilirubin 0.2 (0.2-1.3) mg/dL AST 26 (17-59) U/L ALT 14 (4-49) U/L Alkaline Phosphatase 67 (38-126) U/L Troponin I (0.000-0.034) ng/mL Total Protein 6.5 (6.3-8.2) g/dL Albumin 3.1 L (3.5-5.0) g/dL 08/29/19 Range/Units 12:15 WBC (3.8-10.6) k/uL RBC (4.30-5.90) m/uL Hgb (13.0-17.5) gm/dL Hct (39.0-53.0) % MCV (80.0-100.0) fL MCH (25.0-35.0) pg MCHC (31.0-37.0) g/dL RDW (11.5-15.5) % Plt Count (150-450) k/uL Neutrophils % % Lymphocytes % % Monocytes % % Eosinophils % % Basophils % % Neutrophils # (1.3-7.7) k/uL Lymphocytes # (1.0-4.8) k/uL Monocytes # (0-1.0) k/uL Eosinophils # (0-0.7) k/uL Basophils # (0-0.2) k/uL Manual Slide Review Polychromasia Hypochromasia Poikilocytosis (manual Anisocytosis Macrocytosis PT (9.0-12.0) sec INR (<1.2) APTT (22.0-30.0) sec Sodium (137-145) mmol/L Potassium (3.5-5.1) mmol/L Chloride (98-107) mmol/L Carbon Dioxide (22-30) mmol/L Anion Gap mmol/L BUN (9-20) mg/dL Creatinine (0.66-1.25) mg/dL Est GFR (CKD-EPI)AfAm (>60 ml/min/1.73 sqM) Est GFR (CKD-EPI)NonAf (>60 ml/min/1.73 sqM) Glucose (74-99) mg/dL Calcium (8.4-10.2) mg/dL Magnesium (1.6-2.3) mg/dL Total Bilirubin (0.2-1.3) mg/dL AST (17-59) U/L ALT (4-49) U/L Alkaline Phosphatase (38-126) U/L Troponin I 0.038 H* (0.000-0.034) ng/mL Total Protein (6.3-8.2) g/dL Albumin (3.5-5.0) g/dL Disposition Clinical Impression: Atrial fibrillation with rapid ventricular response, Chronic renal failure, Hyperkalemia Disposition: ADMITTED IP TO THIS HOSP Referrals: Dwayne Coreas MD [Primary Care Provider] - 1-2 days Time of Disposition: 14:54
[2019-08-29] MEDS: DILTIAZEM 125 MG in SODIUM CHLORIDE 0.9% 100 ML IV SCH (12:27)
[2019-08-29 12:44] LABS: Anisocytosis Slight; Basophils % (A) 0 %; Eosinophils % (A) 0 %; HCT 39.1 % (39.0-53.0); Hypochromasia Marked; Lymphocytes # (A) 0.3 k/uL (1.0-4.8); Lymphocytes % (A) 3 %; MCH 28.7 pg (25.0-35.0); MCHC 28.1 g/dL (31.0-37.0); MCV 102.3 fL (80.0-100.0); Macrocytosis Moderate; Mean Platelet Volume 7.3; Monocytes # (A) 0.9 k/uL (0-1.0); Monocytes % (A) 7 %; Neutrophils # (A) 11.1 k/uL (1.3-7.7); Neutrophils % (A) 88 %; Platelet Count 215 k/uL (150-450); RBC 3.82 m/uL (4.30-5.90); RDW 17.6 % (11.5-15.5); WBC 12.7 k/uL (3.8-10.6)
[2019-08-29 12:46] LABS: Albumin 3.1 g/dL (3.5-5.0); Calcium 9.6 mg/dL (8.4-10.2); Magnesium 1.9 mg/dL (1.6-2.3); Potassium 5.8 mmol/L (3.5-5.1); Total Bilirubin 0.2 mg/dL (0.2-1.3); Total Protein 6.5 g/dL (6.3-8.2)
[2019-08-29 12:57] LABS: INR 2.5 (<1.2); Partial Thromboplastin Time 37.3 sec (22.0-30.0); Prothrombin Time 24.6 sec (9.0-12.0)
--- NOTE | 2019-08-29 13:08 | XR ---
EXAMINATION TYPE: XR chest 2V DATE OF EXAM: 08/29/2019 COMPARISON: 05/25/2014 HISTORY: Chest pain TECHNIQUE: Frontal and lateral views of the chest are obtained. FINDINGS: Left PICC has been removed in the interim. Blunting of the left costophrenic angle is seen . No new focal consolidation or pneumothorax.. The cardiac silhouette size is upper limits of normal size. Moderate degenerative change of the shoulders. Low lung volumes are seen. IMPRESSION: Trace left pleural effusion and upper limits of normal size of the cardiomediastinal [place]. Hypoventilatory lungs.
[2019-08-29 13:21] LABS: Poikilocytosis (M) Present; Polychromasia Present
[2019-08-29] MEDS ORDERED: CALCIUM CHLORIDE 100 MG/ML 10 ML SYRINGE IVP STA (14:23)
[2019-08-29] MEDS ORDERED: SODIUM POLYSTYRENE SULFONATE 15 GM/60 ML BOTTLE PO STA (14:24)
[2019-08-29] MEDS ORDERED: NITROGLYCERIN SL TABS 0.4 MG TAB SUBLINGUAL PRN (14:55)
[2019-08-29] MEDS ORDERED: TRIAMCINOLONE ACET 0.1% OINTMENT 15 GM TUBE TOPICAL PRN (19:35)
[2019-08-29] MEDS ORDERED: MAG HYDROX/AL HYDROX/SIMETH 30 ML CUP PO PRN (19:35)
[2019-08-29] MEDS ORDERED: ACETAMINOPHEN TAB 325 MG TAB PO PRN (19:35)
[2019-08-29] MEDS ORDERED: WARFARIN 2 MG TAB PO SCH (21:00)
[2019-08-29] MEDS: TAMSULOSIN 0.4 MG CAP.ER.24H PO SCH (22:00)
[2019-08-29] MEDS ORDERED: VITS A & D-WHITE PET-LANOLIN 5 GM OINT.PACK TOPICAL SCH (22:00)
[2019-08-29] MEDS: ERTAPENEM 0.5 GM in SODIUM CHLORIDE 0.9% 50 ML IVPB SCH (22:01)
[2019-08-29] MEDS: DOXEPIN 25 MG CAP PO SCH (22:02)
[2019-08-29] MEDS: ALPRAZolam 0.25 MG TAB PO SCH (22:02)
[2019-08-29] MEDS: PETROLATUM, WHITE OINT 50 GM TUBE TOPICAL SCH (22:03)
[2019-08-29] MEDS ORDERED: PEPTO BISMOL PO PRN (22:20)
[2019-08-29] MEDS ORDERED: BISACODYL 10 MG SUPP RECTAL PRN (22:20)
[2019-08-29] MEDS ORDERED: NA PHOS,M-B/NA PHOS,DI-BA 133 ML ENEMA RECTAL PRN (22:20)
[2019-08-29] MEDS ORDERED: MAGNESIUM HYDROXIDE 2,400 MG/10 ML CUP PO PRN (22:20)
--- NOTE | 2019-08-29 22:20 | P.HPIM ---
History of Present Illness H&P Date: 08/29/19 Chief Complaint: A. fib with RVR, history of coronary artery disease, anemia, peripheral vas 83-year-old male one of my office patient who has been in [facility] for the last 2 years was known to have history of coronary artery disease, A. fib, history of DVT, diabetes, depression and severe neuropathy who also known to have history of MRSA of the right knee for prostatic knee also had post colostomy for perforated bowel from diverticulitis and history of a posterior mellitus in the past. I received a phone call from [facility] with Mr. Damico the nurse complaining of that he is not feeling well and had significant rapid pulse running over 100 2250 bpm with slightly low blood pressure. Not been able to stabilize him in [facility] ended up being transfer to [facility] emergency department where was seen and evaluated he was running in A. fib with rapid ventricular response was not able to control his symptom without IV Cardizem patient is already on anticoagulation his INR was tested and found to be at 2.5. Consult cardiology Patient on Cardizem drip and admit patient to the hospital for the above problem. Review of Systems CONSTITUTIONAL: Well-developed no acute respiratory distress. EYES: No icterus sclerae, no conjunctivitis. EARS, NOSE, MOUTH, THROAT, and FACE: No sore throat, lymphadenopathy, carotid bruits or deformity. RESPIRATORY: Positive shortness of breath no cough wheezes. CARDIOVASCULAR: Positive PND orthopnea and edema no chest pain pump positive significant shortness of breath and dyspnea. GASTROINTESTINAL: No Abd pain, Nausea or vomiting, no Diarrhea or constipation, No GI Bleed, no distention or masses. Positive ostomy with no diarrhea. GENITOURINARY: Negative for Hematuria or UTI, no kidney stones. INTEGUMENT/BREAST: Negative for any muscular injury with mild osteoarthritis.. HEMATOLOGIC/LYMPHATIC: Negative for bleed or purpura. MUSCULOSKELTAL: chronic one and area and drainage from prosthetic knee in the right side. NEURLOGICAL: No LOC, Sz or syncope, blurred vision dizziness or abnormality.. BEHAVIORAL/PSYCH: Negative. ENDOCRINE: Negative. Past Medical History Past Medical History: Atrial Fibrillation, Chest Pain / Angina, Dementia, Deep Vein Thrombosis (DVT), GERD/Reflux, Osteoarthritis (OA), Renal Disease Additional Past Medical History / Comment(s): sepsis, neuropathy, PAST CELLULITIS, ANEMIA, lt hip fracture 05-11-14,rt.knee wounds, vitamin D deficiency, weakness,BPH, History of Any Multi-Drug Resistant Organisms: ESBL, MRSA Date of last positivie culture/infection: 08/26/19 ESBL 11/24/16 MRSA MDRO Source:: ESBL URINE MRSA KNEE Past Surgical History: Adenoidectomy, Appendectomy, Bowel Resection, Joint Replacement, Tonsillectomy Additional Past Surgical History / Comment(s): B\L knee replacements,bowel sx pt stated not cancer but ended up colostomy (2005), green field filter, orif lt hip, dino/screws, Past Anesthesia/Blood Transfusion Reactions: No Reported Reaction Past Psychological History: Depression Additional Psychological History / Comment(s): [facility], has been a permanent resident for 2 years. Smoking Status: Never smoker Past Alcohol Use History: None Reported, Rare Past Drug Use History: None Reported - Past Family History Father Additional Family Medical History / Comment(s): at age 45 from cirrhosis of the liver. Mother Family Medical History: Dementia Medications and Allergies Home Medications Medication Instructions Recorded Confirmed Type Ascorbic Acid [Vitamin C] 500 mg PO DAILY 09/09/13 08/29/19 History Ferrous Sulfate [Feosol] 325 mg PO DAILY 09/09/13 08/29/19 History Gabapentin [Neurontin] 300 mg PO BID@0800,1700 05/08/14 08/29/19 History Cholecalciferol [Vitamin D3] 1,000 unit PO DAILY 02/04/15 08/29/19 History Multivitamins, Thera [Theragran] 1 tab PO DAILY 02/04/15 08/29/19 History Hydrocodone/Acetaminophen [[place] 1 tab PO HS 09/15/16 08/29/19 History 5-325] Doxycycline [Vibramycin] 100 mg PO BID@1000,1900 05/21/19 08/29/19 History Famotidine [Pepcid] 20 mg PO DAILY 05/21/19 08/29/19 History Furosemide [Lasix] 20 mg PO Q48H 05/21/19 08/29/19 History Metoprolol Succinate [Toprol XL] 25 mg PO DAILY 05/21/19 08/29/19 History Spironolactone [Aldactone] 25 mg PO DAILY 05/21/19 08/29/19 History Sucralfate [Carafate] 1 gm PO DAILY@1700 05/21/19 08/29/19 History Tamsulosin HCl [Flomax] 0.4 mg PO BID 05/21/19 08/29/19 History Bisacodyl [Dulcolax] 10 mg RECTAL DAILY PRN 05/23/19 08/29/19 History Ipratropium-Albuterol Nebulize 3 ml INHALATION RT-Q6H PRN 05/23/19 08/29/19 History [Duoneb 0.5 mg-3 mg/3 ml Soln] Mag Hydrox/Al Hydrox/Simeth 15 ml PO Q6HR PRN 05/23/19 08/29/19 History [Maalox] Magnesium Hydroxide [Milk of 30 ml PO DAILY PRN 05/23/19 08/29/19 History Magnesia Concentrate] Na Phos,M-B/Na Phos,Di-Ba [Fleet 1 applic RECTAL DAILY PRN 05/23/19 08/29/19 History Adult] Polyvinyl Alcohol/Povidone 1 drop BOTH EYES BID@0800,0 05/23/19 08/29/19 History [Freshkote Eye Drop] Triamcinolone 0.1% Ointment 1 applic TOPICAL BID PRN 05/23/19 08/29/19 History [Kenalog 0.1% Ointment] ALPRAZolam [Xanax] 0.25 mg PO HS 08/29/19 08/29/19 History Acetaminophen [Tylenol 8 Hour] 650 mg PO Q4H PRN 08/29/19 08/29/19 History Doxepin HCl [SINEquan] 50 mg PO HS 08/29/19 08/29/19 History Ertapenem [INVanz] 500 mg IVPB DAILY@0 08/29/19 08/29/19 History Furosemide [Lasix] 40 mg PO Q48H 08/29/19 08/29/19 History Gabapentin 600 mg PO BID@0800,0 08/29/19 08/29/19 History HYDROcodone/APAP 5-325MG [[place] 1 tab PO Q8H PRN 08/29/19 08/29/19 History 5-325] Lactose-Reduced Food [Ensure Plus] 237 ml PO DAILY 08/29/19 08/29/19 History Menthol [Biofreeze] 1 applic TOPICAL BID@0800,1700 08/29/19 08/29/19 History Niacinamide 500 mg PO BID@0800,1700 08/29/19 08/29/19 History Pepto-Bismol Tablet 1 tab PO BID PRN 08/29/19 08/29/19 History Rivastigmine Tartrate [Exelon] 3 mg PO BID 08/29/19 08/29/19 History Vitamins A and D [Vitamin A and D] 1 applic TOPICAL TID 08/29/19 08/29/19 History Warfarin [Coumadin] 2 mg PO SUMOTUTH@1700 08/29/19 08/29/19 History Warfarin [Coumadin] 3 mg PO WEFRSA@1700 08/29/19 08/29/19 History Allergies Allergy/AdvReac Type Severity Reaction Status Date / Time aspirin Allergy Unknown Verified 08/29/19 12:34 diphenhydramine Allergy Unknown Verified 08/29/19 12:34 latex Allergy Rash/Hives Verified 08/29/19 12:34 Penicillins Allergy Unknown Verified 08/29/19 12:34 lorazepam [From Ativan] AdvReac Hallucinati Verified 08/29/19 12:34 ons Physical Exam Vitals: Vital Signs Temp Pulse Pulse Resp BP BP Pulse Ox 08/29/19 16:00 98.1 F 101 H 20 111/69 95 08/29/19 15:53 98.1 F 101 H 20 111/69 95 08/29/19 15:30 105 H 18 104/78 100 08/29/19 13:08 114 H 124/88 08/29/19 12:07 98.1 F 146 H 20 106/83 95 08/29/19 12:04 144 H Intake and Output 08/29/19 08/29/19 08/29/19 06:59 14:59 22:59 Output Total 75 Balance -75 Output: Urine 75 Other: Voiding Method Urinal Incontinent # Voids 200 # Bowel Movements 1 Weight 93.44 kg 93.44 kg General Appearance: Alert, cooperative, no distress, appears stated age. Moderately overweight Neck HEENT: Supple, no lymphadenopathy, no thyroid enlargement, no carotid bruits. Lungs: Decreased breath some bilateral rhonchi no crackles or wheezes. Chest Wall: Decrease expansion with deep inspiration no tenderness and no deformity was found on exam, no costochondral pain or discomfort. Heart: Irregular rate and rhythm, S1, S2 positive this 3 positive JVD with significant tachycardia.. Back: Symmetric, no curvature, ROM normal, no CVA tenderness. Abdomen: Soft, non-tender, bowel sounds active all four quadrants, no masses, ostomy stoma looks good with no abnormality or hernia. Has a small area in the mid abdominal region with slight drainage which apparently was ESBL from culture done 2 days ago. Extremities: Significant edema bilaterally right knee still have significant scar tissue with prostatic area with the spot on the incision looks healing with slight drainage only. Pulses: Decreased bilaterally. Skin: Skin color, texture, tugor normal, no rashes or lesions. Neurologic: Alert oriented x3 cranial nerves II through XII intact, no motor deficit, no abnormal balance or gait. Results CBC & Chem 7: 08/29/19 12:15 08/29/19 21:15 Labs: Abnormal Lab Results - Last 24 Hours (Table) 08/29/19 08/29/19 08/29/19 Range/Units 12:15 12:15 12:15 WBC 12.7 H (3.8-10.6) k/uL RBC 3.82 L (4.30-5.90) m/uL Hgb 11.0 L (13.0-17.5) gm/dL MCV 102.3 H (80.0-100.0) fL MCHC 28.1 L (31.0-37.0) g/dL RDW 17.6 H (11.5-15.5) % Neutrophils # 11.1 H (1.3-7.7) k/uL Lymphocytes # 0.3 L (1.0-4.8) k/uL PT 24.6 H (9.0-12.0) sec INR 2.5 H (<1.2) APTT 37.3 H (22.0-30.0) sec Sodium 135 L (137-145) mmol/L Potassium 5.8 H (3.5-5.1) mmol/L Chloride 112 H (98-107) mmol/L Carbon Dioxide 15 L (22-30) mmol/L BUN 57 H (9-20) mg/dL Creatinine 2.50 H (0.66-1.25) mg/dL Glucose 192 H (74-99) mg/dL Troponin I (0.000-0.034) ng/mL Albumin 3.1 L (3.5-5.0) g/dL 08/29/19 08/29/19 Range/Units 12:15 18:29 WBC (3.8-10.6) k/uL RBC (4.30-5.90) m/uL Hgb (13.0-17.5) gm/dL MCV (80.0-100.0) fL MCHC (31.0-37.0) g/dL RDW (11.5-15.5) % Neutrophils # (1.3-7.7) k/uL Lymphocytes # (1.0-4.8) k/uL PT (9.0-12.0) sec INR (<1.2) APTT (22.0-30.0) sec Sodium (137-145) mmol/L Potassium (3.5-5.1) mmol/L Chloride (98-107) mmol/L Carbon Dioxide (22-30) mmol/L BUN (9-20) mg/dL Creatinine (0.66-1.25) mg/dL Glucose (74-99) mg/dL Troponin I 0.038 H* 0.044 H* (0.000-0.034) ng/mL Albumin (3.5-5.0) g/dL Thrombosis Risk Factor Assmnt - DVT/VTE Prophylaxis DVT/VTE Prophylaxis: Pharmacologic Prophylaxis ordered, Mechanical Prophylaxis ordered - Choose All That Apply Any of the Below Risk Factors Present?: Yes Each Factor Represents 1 point: Obesity (BMI >25) Other Risk Factors: Yes Each Risk Factor Represents 3 Points: Age 75 years or older Thrombosis Risk Factor Assessment Total Risk Factor Score: 4 Thrombosis Risk Factor Assessment Level: Moderate Risk Assessment and Plan Assessment: 1 paroxysmal atrial fibrillation with rapid ventricular response: Patient was admitted to the hospital continue Cardizem drip he is already on anticoagulation with INR is therapeutic at this point we'll consult cardiology continue current management if failure to current medication between metoprolol and warfarin patient might be considered for second agent such as Cardizem orally or amiodarone if his A. fib is refractory to treatment. 2 history of coronary artery disease: Patient has been seeing cardiology regular basis and testing are up-to-date. 3 elevated troponin with possible non-ST VT which could be hypoperfusion with the severity of the A. fib, echocardiogram will be done consult cardiology and repeat troponin again decision for intervention will be made in the next 24 hours. 4 stage IV chronic kidney disease: With slightly worsening kidney function, repeat BUN/creatinine next 24 hours, patient was hyperkalemic with treat with fluid, D50 and insulin and recheck potassium. 5 congestive heart failure: Systolic chronic, patient has been on furosemide, spironolactone and metoprolol he was taking off Nitesh because of kidney function. 6 history of ESBL of the stomach wall: Patient has been on ertapenem which not a clear whether ertapenem had a created any problem with interaction causing the A. fib at this point. 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 8 chronic history of diabetic neuropathy: Has been on gabapentin total of 900 mg twice a day. 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 10 history of BPH: Has been on tamsulosin 0.4 mg twice a day with good result so far. 11 history of dementia: Alzheimer type, has been on Aricept and doxepin. 12 reactive airway with mild COPD: Continue patient on albuterol/ipratropium. 13 chronic pain syndrome: Has been on hydrocodone on as needed basis. 14 severe gastritis and recurrent bleed, patient has been on Carafate along with pantoprazole. Was complaining of mild dysphagia and was post to see Dr. Garcia for EGD and possible need diet patient. 15 anticoagulation management: Has been on warfarin which up till now patient has been doing well with it continue medication as soon as were clear from intervention standpoint. 16 DVT prophylaxis: Patient remain on anticoagulation. CODE STATUS: Full code. Admit patient to inpatient service for more than 2 nights.
[2019-08-30 05:20] LABS: Appearance,Urine Turbid (Clear); Bilirubin,Urine Negative (Negative); Blood,Urine Large (Negative); Color,Urine Red; Glucose,Urine (UA) Negative (Negative); Ketones,Urine Negative (Negative); Leukocyte Esterase,Urine Large (Negative); Mucus,Urine Occasional /hpf; Nitrite,Urine Negative (Negative); PH, Urine 5.5 (5.0-8.0); Protein,Urine 2+ (Negative); RBC,Urine >182 /hpf (0-5); Specific Gravity,Urine 1.019 (1.001-1.035); Urobilinogen,Urine <2.0 mg/dL (<2.0); WBC,Urine >182 /hpf (0-5)
[2019-08-30 06:51] LABS: INR 2.7 (<1.2); Prothrombin Time 26.4 sec (9.0-12.0)
[2019-08-30 06:54] LABS: Anisocytosis Slight; HCT 35.8 % (39.0-53.0); HGB 10.3 gm/dL (13.0-17.5); Hypochromasia Marked; MCH 30.2 pg (25.0-35.0); MCHC 28.7 g/dL (31.0-37.0); MCV 105.4 fL (80.0-100.0); Macrocytosis Marked; Mean Platelet Volume 7.6; Platelet Count 216 k/uL (150-450); RDW 17.6 % (11.5-15.5)
[2019-08-30 07:14] LABS: Albumin 2.8 g/dL (3.5-5.0); Calcium 9.6 mg/dL (8.4-10.2); Total Bilirubin 0.3 mg/dL (0.2-1.3); Total Protein 6.1 g/dL (6.3-8.2)
[2019-08-30 07:15] LABS: Potassium 5.8 mmol/L (3.5-5.1)
[2019-08-30 07:17] LABS: Lymphocytes # (M) 0.39 k/uL (1.0-4.8); Monocytes # (M) 0.78 k/uL (0-1.0); Neutrophils # (M) 11.83 k/uL (1.3-7.7); Neutrophils % (M) 91 %; Nucleated Red Blood Cells 0 /100 WBC (0-0); Total Cells Counted 100
[2019-08-30] MEDS ORDERED: NIACINAMIDE 500 MG PO SCH (08:00)
[2019-08-30] MEDS ORDERED: GABAPENTIN 300 MG CAP PO SCH (08:00)
--- NOTE | 2019-08-30 08:04 | P.CRDCN ---
History of Present Illness Consult date: 08/30/19 Requesting physician: Dwayne Coreas Consult reason: atrial fibrillation History of present illness: This is an 83-year-old gentleman who resides at [facility], he has a known history of hypertension, paroxysmal atrial fibrillation, SVT, prior DVT, diabetes, depression, severe neuropathy, colostomy, renal disease, anemia. ESBL and MRSA. He was admitted to the hospital because of a rapid heartbeat and hypotension. Chest x-ray on admission showed trace left sided pleural effusion. Initial EKG on presentation here showed atrial fibrillation with a rapid ventricular response. This morning the patient is in a sinus tachycardia. Blood pressure 108/60, heart rate 110, 100% on 2 L of oxygen. White blood cell count 13.0, hemoglobin 10.3, platelet count 216. INR today is 2.7. Sodium 137, potassium 5.8, BUN 57, creatinine 2.4. Troponin 0.038, 0.044, 0.051. Urinalysis positive for UTI. At the time of my examination this morning, the patient's main complaint is that he feels quite tired, he denies any palpitations, he does state that he feels more short of breath than usual. Patient does have several ulcerations, on his buttocks area, around his colostomy, significant discoloration of his toes. Past Medical History Past Medical History: Atrial Fibrillation, Chest Pain / Angina, Dementia, Deep Vein Thrombosis (DVT), GERD/Reflux, Osteoarthritis (OA), Renal Disease Additional Past Medical History / Comment(s): sepsis, neuropathy, PAST CELLULITIS, ANEMIA, lt hip fracture 05-11-14,rt.knee wounds, vitamin D deficiency, weakness,BPH, History of Any Multi-Drug Resistant Organisms: ESBL, MRSA Date of last positivie culture/infection: 08/26/19 ESBL 11/24/16 MRSA MDRO Source:: ESBL URINE MRSA KNEE Past Surgical History: Adenoidectomy, Appendectomy, Bowel Resection, Joint Replacement, Tonsillectomy Additional Past Surgical History / Comment(s): B\L knee replacements,bowel sx pt stated not cancer but ended up colostomy (2005), green field filter, orif lt hip, dino/screws, Past Anesthesia/Blood Transfusion Reactions: No Reported Reaction Past Psychological History: Depression Additional Psychological History / Comment(s): Residing at [facility], has been a permanent resident for 2 years. Smoking Status: Never smoker Past Alcohol Use History: None Reported, Rare Past Drug Use History: None Reported - Past Family History Father Additional Family Medical History / Comment(s): at age 45 from cirrhosis of the liver. Mother Family Medical History: Dementia Medications and Allergies Home Medications Medication Instructions Recorded Confirmed Type Ascorbic Acid [Vitamin C] 500 mg PO DAILY 09/09/13 08/29/19 History Ferrous Sulfate [Feosol] 325 mg PO DAILY 09/09/13 08/29/19 History Gabapentin [Neurontin] 300 mg PO BID@0800,1700 05/08/14 08/29/19 History Cholecalciferol [Vitamin D3] 1,000 unit PO DAILY 02/04/15 08/29/19 History Multivitamins, Thera [Theragran] 1 tab PO DAILY 02/04/15 08/29/19 History Hydrocodone/Acetaminophen [Cutler 1 tab PO HS 09/15/16 08/29/19 History 5-325] Doxycycline [Vibramycin] 100 mg PO BID@1000,1900 05/21/19 08/29/19 History Famotidine [Pepcid] 20 mg PO DAILY 05/21/19 08/29/19 History Furosemide [Lasix] 20 mg PO Q48H 05/21/19 08/29/19 History Metoprolol Succinate [Toprol XL] 25 mg PO DAILY 05/21/19 08/29/19 History Spironolactone [Aldactone] 25 mg PO DAILY 05/21/19 08/29/19 History Sucralfate [Carafate] 1 gm PO DAILY@1700 05/21/19 08/29/19 History Tamsulosin HCl [Flomax] 0.4 mg PO BID 05/21/19 08/29/19 History Bisacodyl [Dulcolax] 10 mg RECTAL DAILY PRN 05/23/19 08/29/19 History Ipratropium-Albuterol Nebulize 3 ml INHALATION RT-Q6H PRN 05/23/19 08/29/19 History [Duoneb 0.5 mg-3 mg/3 ml Soln] Mag Hydrox/Al Hydrox/Simeth 15 ml PO Q6HR PRN 05/23/19 08/29/19 History [Maalox] Magnesium Hydroxide [Milk of 30 ml PO DAILY PRN 05/23/19 08/29/19 History Magnesia Concentrate] Na Phos,M-B/Na Phos,Di-Ba [Fleet 1 applic RECTAL DAILY PRN 05/23/19 08/29/19 History Adult] Polyvinyl Alcohol/Povidone 1 drop BOTH EYES BID@0800,1700 05/23/19 08/29/19 History [[place] Eye Drop] Triamcinolone 0.1% Ointment 1 applic TOPICAL BID PRN 05/23/19 08/29/19 History [Kenalog 0.1% Ointment] ALPRAZolam [Xanax] 0.25 mg PO HS 08/29/19 08/29/19 History Acetaminophen [Tylenol 8 Hour] 650 mg PO Q4H PRN 08/29/19 08/29/19 History Doxepin HCl [SINEquan] 50 mg PO HS 08/29/19 08/29/19 History Ertapenem [INVanz] 500 mg IVPB DAILY@169908/29/19 08/29/19 History Furosemide [Lasix] 40 mg PO Q48H 08/29/19 08/29/19 History Gabapentin 600 mg PO BID@0800,0 08/29/19 08/29/19 History HYDROcodone/APAP 5-325MG [Cutler 1 tab PO Q8H PRN 08/29/19 08/29/19 History 5-325] Lactose-Reduced Food [Ensure Plus] 237 ml PO DAILY 08/29/19 08/29/19 History Menthol [Biofreeze] 1 applic TOPICAL BID@0800,169908/29/19 08/29/19 History Niacinamide 500 mg PO BID@0800,0 08/29/19 08/29/19 History Pepto-Bismol Tablet 1 tab PO BID PRN 08/29/19 08/29/19 History Rivastigmine Tartrate [Exelon] 3 mg PO BID 08/29/19 08/29/19 History Vitamins A and D [Vitamin A and D] 1 applic TOPICAL TID 08/29/19 08/29/19 Hist ory Warfarin [Coumadin] 2 mg PO SUMOTUTH@169908/29/19 08/29/19 History Warfarin [Coumadin] 3 mg PO WEFRSA@1700 08/29/19 08/29/19 History Allergies Allergy/AdvReac Type Severity Reaction Status Date / Time aspirin Allergy Unknown Verified 08/29/19 12:34 diphenhydramine Allergy Unknown Verified 08/29/19 12:34 latex Allergy Rash/Hives Verified 08/29/19 12:34 Penicillins Allergy Unknown Verified 08/29/19 12:34 lorazepam [From Ativan] AdvReac Hallucinati Verified 08/29/19 12:34 ons Physical Exam Vitals: Vital Signs Temp Pulse Pulse Resp BP BP Pulse Ox 08/30/19 04:20 97.8 F 111 H 16 108/66 100 08/29/19 23:24 97.8 F 106 H 16 111/60 100 08/29/19 21:25 97.5 F L 100 18 107/74 100 08/29/19 16:00 98.1 F 101 H 20 111/69 95 08/29/19 15:53 98.1 F 101 H 20 111/69 95 08/29/19 15:30 105 H 18 104/78 100 08/29/19 13:08 114 H 124/88 08/29/19 12:07 98.1 F 146 H 20 106/83 95 08/29/19 12:04 144 H Intake and Output 08/29/19 08/30/19 08/30/19 22:59 06:59 14:59 Output Total 125 100 Balance -125 -100 Output: Urine 125 100 Other: Voiding Method Incontinent Incontinent # Voids 200 # Bowel Movements 1 Weight 93.44 kg 72.5 kg PHYSICAL EXAMINATION: GENERAL: 83-year-old gentleman in no acute distress at the time of my examination HEENT: Head is atraumatic, normocephalic. Pupils equal, round. Sclera anicteric. Conjunctiva are clear. Mucous membranes of the mouth are moist. Neck is supple. There is elevated jugular venous pressure. No carotid bruit is heard. HEART EXAMINATION: Heart S1 and S2, tachycardic, systolic murmur. CHEST EXAMINATION: Lungs reveal diminished air entry to the bases bilaterally ABDOMEN: Soft, nontender. Colostomy in place, significant redness around that area with ulceration .Bowel sounds are heard. No organomegaly noted. EXTREMITIES: 1+ peripheral pulses with trace evidence of peripheral edema, significant discoloration of the toes.. NEUROLOGIC patient is awake, alert and oriented 3 . . Results 08/30/19 06:16 08/30/19 06:16 Cardiac Enzymes 08/29/19 08/29/19 08/29/19 Range/Units 12:15 12:15 18:29 AST 26 (17-59) U/L Troponin I 0.038 H* 0.044 H* (0.000-0.034) ng/mL 08/30/19 08/30/19 Range/Units 00:06 06:16 AST 38 (17-59) U/L Troponin I 0.051 H* (0.000-0.034) ng/mL Coagulation 08/29/19 08/30/19 Range/Units 12:15 06:16 PT 24.6 H 26.4 H (9.0-12.0) sec APTT 37.3 H (22.0-30.0) sec Lipids 08/30/19 Range/Units 06:16 Triglycerides 114 (<150) mg/dL Cholesterol 139 (<200) mg/dL HDL Cholesterol 63 H (40-60) mg/dL CBC 08/29/19 08/30/19 Range/Units 12:15 06:16 WBC 12.7 H 13.0 H (3.8-10.6) k/uL RBC 3.82 L 3.40 L (4.30-5.90) m/uL Hgb 11.0 L 10.3 L (13.0-17.5) gm/dL Hct 39.1 35.8 L (39.0-53.0) % Plt Count 215 216 (150-450) k/uL Comprehensive Metabolic Panel 08/29/19 08/29/19 08/30/19 Range/Units 12:15 21:15 06:16 Sodium 135 L 137 (137-145) mmol/L Potassium 5.8 H 5.4 H 5.8 H (3.5-5.1) mmol/L Chloride 112 H 116 H (98-107) mmol/L Carbon Dioxide 15 L 14 L (22-30) mmol/L BUN 57 H 57 H (9-20) mg/dL Creatinine 2.50 H 2.45 H (0.66-1.25) mg/dL Glucose 192 H 103 H (74-99) mg/dL Calcium 9.6 9.6 (8.4-10.2) mg/dL AST 26 38 (17-59) U/L ALT 14 13 (4-49) U/L Alkaline Phosphatase 67 39 (38-126) U/L Total Protein 6.5 6.1 L (6.3-8.2) g/dL Albumin 3.1 L 2.8 L (3.5-5.0) g/dL Current Medications Generic Name Dose Route Start Last Admin Trade Name Freq PRN Reason Stop Dose Admin Acetaminophen 650 mg 08/29/19 19:35 Tylenol Tab PO Q4H PRN Pain or Fever > 100.5 Hydrocodone Bitart/Acetaminophen 1 each 08/29/19 19:35 Cutler 5-325 PO Q8H PRN Pain Hydrocodone Bitart/Acetaminophen 1 each 08/30/19 21:00 Cutler 5-325 PO HS MEGHA Al Hydroxide/Mg Hydroxide 15 ml 08/29/19 19:35 Maalox PO Q6HR PRN GI Upset Albuterol/Ipratropium 3 ml 08/29/19 19:35 Duoneb 0.5 Mg-3 Mg/3 Ml Soln INHALATION RT-Q6H PRN Shortness Of Breath Alprazolam 0.25 mg 08/29/19 21:00 08/29/19 22:02 Xanax PO 0.25 mg HS [facility] Administration Artificial Tears 1 drops 08/30/19 08:00 Artificial Tear Drops BOTH EYES BID@0800,1700 [facility] Ascorbic Acid 500 mg 08/30/19 09:00 Vitamin C PO DAILY [facility] Bisacodyl 10 mg 08/29/19 22:20 Dulcolax RECTAL DAILY PRN Constipation Cholecalciferol 1,000 unit 08/30/19 09:00 Vitamin D3 (25 Mcg = 1000 Iu) PO DAILY [facility] Donepezil HCl 10 mg 08/30/19 09:00 Aricept PO DAILY [facility] Doxepin HCl 50 mg 08/29/19 21:00 08/29/19 22:02 Sinequan PO 50 mg HS [facility] Administration Doxycycline Monohydrate 100 mg 08/30/19 10:00 Vibramycin PO BID@1000,1900 [facility] Famotidine 20 mg 08/30/19 09:00 Pepcid PO DAILY [facility] Ferrous Sulfate 325 mg 08/30/19 09:00 Feosol PO DAILY [facility] Furosemide 20 mg 08/30/19 09:00 Lasix PO Q48H [facility] Furosemide 40 mg 08/31/19 09:00 Lasix PO Q48H [facility] Gabapentin 600 mg 08/30/19 08:00 Neurontin PO BID@0800,1700 [facility] Gabapentin 300 mg 08/30/19 08:00 Neurontin PO BID@0800,1700 [facility] Diltiazem HCl 125 mg/ Sodium 125 mls @ 5 mls/hr 08/29/19 12:15 08/29/19 12:27 Chloride IV 5 mg/hr .Q24H MEGHA 5 mls/hr Administration 5 MG/HR Ertapenem 0.5 gm/ Sodium 50 mls @ 100 mls/hr 08/29/19 21:00 08/29/19 22:01 Chloride IVPB 100 mls/hr DAILY@1700 [facility] Administration Magnesium Hydroxide 2,400 mg 08/29/19 22:20 Milk Of Magnesia PO DAILY PRN Constipation Methyl Salicylate 1 applic 08/30/19 08:00 Thera-Gesic Cream TOPICAL BID@0800,1700 [facility] Metoprolol Succinate 25 mg 08/30/19 09:00 Toprol Xl PO BID [facility] Multivitamins 1 each 08/30/19 09:00 Theragran PO DAILY [facility] Nitroglycerin 0.4 mg 08/29/19 14:55 Nitrostat SUBLINGUAL Q5M PRN Chest Pain Petrolatum 1 applic 08/29/19 22:00 08/29/19 22:03 Aquaphor TOPICAL 1 applic TID [facility] Administration Sodium Biphosphate/Sodium Phosphate 133 ml 08/29/19 22:20 Fleet Adult RECTAL DAILY PRN Constipation Spironolactone 25 mg 08/30/19 09:00 Aldactone PO DAILY [facility] Sucralfate 1 gm 08/30/19 17:00 Carafate PO DAILY@1700 [facility] Tamsulosin HCl 0.4 mg 08/29/19 21:00 08/29/19 22:00 Flomax PO 0.4 mg BID [facility] Administration Triamcinolone Acetonide 1 applic 08/29/19 19:35 Kenalog TOPICAL BID PRN BULLOUS ARMS & UPPER BACK Warfarin Sodium 2 mg 08/29/19 21:00 08/29/19 22:01 Coumadin PO 2 mg SUMOTUTH@1700 [facility] Administration Protocol Warfarin Sodium 3 mg 08/30/19 17:00 Coumadin PO WEFRSA@1700 [facility] Protocol Intake and Output 08/29/19 08/30/19 08/30/19 22:59 06:59 14:59 Output Total 125 100 Balance -125 -100 Output: Urine 125 100 Other: Voiding Method Incontinent Incontinent # Voids 200 # Bowel Movements 1 Weight 93.44 kg 72.5 kg 08/30/19 06:16 08/30/19 06:16 EKG Interpretations (text) Initial EKG showed atrial fibrillation with a rapid ventricular response Assessment and Plan Plan: Assessment and plan #1 atrial fibrillation with rapid ventricular response, paroxysmal, currently in sinus tachycardia. Patient takes Coumadin for anticoagulation #2 abnormal troponin, likely secondary to hypoxia, and A. fib with RVR. 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 Discontinue IV Cardizem and increase the metoprolol to 50 mg twice a day. We will give the patient one time dose of IV Lasix today as well. Check a TSH level. Further recommendations to follow. DNP note has been reviewed, I agree with a documented findings and plan of care. Patient was seen and examined.
[2019-08-30] MEDS: IPRATROPIUM-ALBUTEROL 3 ML NEB INHALATION PRN (08:21)
[2019-08-30] MEDS: METOPROLOL SUCCINATE (ER) 50 MG TAB.ER.24H PO SCH ×2 (08:26→21:20)
[2019-08-30] MEDS: GABAPENTIN 300 MG CAP PO SCH ×2 (08:26→18:04)
[2019-08-30] MEDS: ASCORBIC ACID 500 MG TAB PO SCH (08:26)
[2019-08-30] MEDS: TAMSULOSIN 0.4 MG CAP.ER.24H PO SCH ×2 (08:27→21:21)
[2019-08-30] MEDS: FAMOTIDINE 20 MG TAB PO SCH (08:27)
[2019-08-30] MEDS: DONEPEZIL 10 MG TAB PO SCH (08:27)
[2019-08-30] MEDS: CHOLECALCIFEROL 1,000 UNIT TAB PO SCH (08:27)
[2019-08-30] MEDS: FERROUS SULFATE 325 MG TAB PO SCH (08:27)
[2019-08-30] MEDS: DILTIAZEM 125 MG in SODIUM CHLORIDE 0.9% 100 ML IV SCH (08:29)
[2019-08-30] MEDS: DOXYCYCLINE 100 MG CAP PO SCH ×3 (08:34→18:10)
[2019-08-30] MEDS: ARTIFICIAL TEARS-HYPROMELLOSE DROPS 15 ML BTL BOTH EYES SCH ×2 (08:34→18:04)
[2019-08-30] MEDS: METHYL SALICYLATE/MENTHOL CREAM 5 OZ TOPICAL SCH ×2 (08:34→18:05)
[2019-08-30] MEDS: MULTIVITAMINS, THERA 1 EACH TAB PO SCH (08:37)
[2019-08-30] MEDS: PETROLATUM, WHITE OINT 50 GM TUBE TOPICAL SCH ×3 (08:37→21:25)
[2019-08-30] MEDS ORDERED: ASPIRIN 325 MG TAB PO SCH (09:00)
[2019-08-30] MEDS ORDERED: SPIRONOLACTONE 25 MG TAB PO SCH (09:00)
[2019-08-30] MEDS ORDERED: LACTOSE REDUCED FOOD PO SCH (09:00)
[2019-08-30] MEDS ORDERED: METOPROLOL SUCCINATE (ER) 25 MG TAB.ER.24H PO SCH ×2 (09:00)
[2019-08-30] MEDS ORDERED: FUROSEMIDE 20 MG TAB PO SCH (09:00)
--- NOTE | 2019-08-30 09:56 | ECHOF ---
Referral Reason:afib MEASUREMENTS -------- HEIGHT: 170.2 cm WEIGHT: 93.4 kg BP: RVIDd: 2.0 cm (< 3.3) IVSd: 1.5 cm (0.6 - 1.1) LVIDd: 3.2 cm (3.9 - 5.3) LVPWd: 1.5 cm (0.6 - 1.1) IVSs: 1.6 cm LVIDs: 1.8 cm LVPWs: 1.6 cm Ao Diam: 2.9 cm (2.0 - 3.7) AV Cusp: 2.2 cm (1.5 - 2.6) LA Diam: 3.9 cm (2.7 - 3.8) MV EXCURSION: 13.189 mm (> 18.000) MV EF SLOPE: 33 mm/s (70 - 150) EPSS: 0.7 cm MV E Alexy: 0.39 m/s MV DecT: 129 ms MV A Alexy: 0.31 m/s MV E/A Ratio: 1.25 RAP: 5.00 mmHg RVSP: 10.41 mmHg FINDINGS -------- Resting tachycardia (HR>100bpm). This was a technically difficult study with suboptimal views. The left ventricular size is normal. There is moderate concentric left ventricular hypertrophy. O verall left ventricular systolic function is normal with, an EF between 55 - 60 %. The right ventricle is normal in size. The left atrial size is normal. The right atrial size is normal. Lumason used Unable to visualize the septum. The aortic valve is trileaflet and appears structurally normal. The mitral valve is normal. The mitral valve leaflets are mildly thickened. There is trace mitral regurgitation. The tricuspid valve appears structurally normal. Trace tricuspid regurgitation present. Right juan tricular systolic pressure is normal at < 35 mmHg. There is no pulmonic regurgitation present. The aortic root size is normal. Normal inferior vena cava with normal inspiratory collapse consistent with estimated right atrial pre ssure of 5 mmHg. There is no pericardial effusion. CONCLUSIONS -------- 1. Resting tachycardia (HR>100bpm). 2. This was a technically difficult study with suboptimal views. 3. The left ventricular size is normal. 4. There is moderate concentric left ventricular hypertrophy. 5. Overall left ventricular systolic function is normal with, an EF between 55 - 60 %. 6. The right ventricle is normal in size. 7. The left atrial size is normal. 8. The right atrial size is normal. 9. Lumason used 10. Unable to visualize the septum. 11. The aortic valve is trileaflet and appears structurally normal. 12. The mitral valve is normal. 13. The mitral valve leaflets are mildly thickened. 14. There is trace mitral regurgitation. 15. The tricuspid valve appears structurally normal. 16. Trace tricuspid regurgitation present. 17. Right ventricular systolic pressure is normal at < 35 mmHg. 18. There is no pulmonic regurgitation present. 19. The aortic root size is normal. 20. Normal inferior vena cava with normal inspiratory collapse consistent with estimated right atrial pressure of 5 mmHg. 21. There is no pericardial effusion. REGIONAL CLIMATE CHANGE ANALYST: Lilian Madison RDCS
[2019-08-30] MEDS ORDERED: DEXTROSE 5% IN WATER 1,000 ML with SODIUM BICARB (1 MEQ/ML) 150 ML IV SCH (11:00)
--- NOTE | 2019-08-30 11:07 | CONS ---
CONSULTATION REASON FOR CONSULT: Hyperkalemia. HISTORY OF PRESENT ILLNESS: The patient is an 83-year-old male who was admitted to the hospital yesterday on 08/29/2019 with complaints of feeling weak and having had rapid heart rate. Patient was at [facility] and was transferred to the hospital for atrial fibrillation with RVR. He has been maintained on IV Cardizem. Serum creatinine was 2.32 mg/dL in May and it was 2.5 this admission and it is down to 2.45 right now. Patient's blood pressure has been on the lower side with systolic around 108-107 mmHg. He is noted to have a potassium of 5.8 today with a CO2 of 14. Currently, patient is maintained on oral Lasix. He is also on a Cardizem drip. PAST MEDICAL HISTORY: Significant for hypertension, atrial fibrillation, dementia, DVT, osteoarthritis, cellulitis, anemia, gastroesophageal reflux disease, history of bowel resection, BPH. PAST SURGICAL HISTORY: Adenoidectomy, appendectomy, bowel resection, colostomy, tonsillectomy, bilateral knee arthroplasties, [place] filter placement, ORIF left hip. SOCIAL HISTORY: Negative for smoking, drug abuse or alcohol abuse. Currently resides at [facility]. MEDICATIONS: Prior to admission included iron, vitamin C, Neurontin, vitamin D3, multivitamins, Pepcid, Lasix, Toprol, Aldactone, Carafate, Flomax, Dulcolax, milk of magnesia, Xanax, Neurontin, Ensure, Coumadin, vitamin A and D. ALLERGIES: Include ASPIRIN, DIPHENHYDRAMINE, LATEX, PENICILLIN, ATIVAN. REVIEW OF SYSTEMS: As per HPI. Other systems negative. PHYSICAL EXAMINATION: Currently patient is comfortable, awake, alert, oriented x3, not in any acute distress. Blood pressure was 110/67, heart rate 115 per minute, he is afebrile. Examination of the heart S1, S2. Examination of the lungs, decreased breath sounds at the bases. Abdomen is soft, nontender. Examination of the lower extremities shows no significant edema. 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 Patient is moving all four extremities. LABS: Show sodium of 137, potassium 5.8, chloride 116, CO2 is 14, BUN 57, serum creatinine 2.45, hemoglobin 10.3. UA shows 2+ protein, large blood, WBCs more than 182. ASSESSMENT: 1. Acute kidney injury associated with hemodynamic instability with atrial fibrillation with RVR, currently maintained on Cardizem drip. Patient is nonoliguric. He has been voiding. He is incontinent. We will check a postvoid residual to rule out underlying urine retention. No nephrotoxic agents on board. 2. Non-gap metabolic acidosis associated with renal failure as well as GI fluid loss with the colostomy. I will start the patient on bicarb drip. 3. Hyperkalemia associated with acute kidney injury, use of Aldactone, metabolic acidosis. 4. Pyuria with urine tract infection. Urine culture grew Proteus mirabilis. 5. Atrial fibrillation with RVR, currently maintained on Cardizem drip. 6. Chronic kidney disease stage 4. Previous creatinine 1.8-1.6 mg/dL secondary to diabetic nephropathy and nephrosclerosis. PLAN: Start IV bicarb. Repeat potassium this evening, continue antibiotics. Repeat chest x- ray. DC Aldactone, DC milk of magnesia given the progressive renal failure and discontinue the sodium biphosphate enema as well. Continue with the Flomax. Check postvoid residual. Thank you for this consultation. Will continue to follow the patient with you during his hospitalization. MMODL / IJN: [id number] /
--- NOTE | 2019-08-30 11:08 | XR ---
EXAMINATION TYPE: XR chest 1V DATE OF EXAM: 08/30/2019 COMPARISON: 08/29/2019 HISTORY: Shortness of breath TECHNIQUE: Single frontal view of the chest is obtained. FINDINGS: Limited inspiration with subsegmental changes at the left lung base. No overt failure or p neumothorax. Large ossification along the right axilla. No sizable pneumothorax. No pleural effusion. Diffuse osteopenia. Arthropathy of the shoulders. IMPRESSION: Left basilar atelectasis favored over pneumonia correlate clinically.
--- NOTE | 2019-08-30 12:05 | P.CONS ---
History of Present Illness - Reason for Consult Consult date: 08/30/19 Wound care - History of Present Illness This is an 83-year-old pleasant gentleman who is a resident of [facility] being seen by the wound care center for nonhealing ulcerations to the abdomen the coccyx and the left foot second digit. Patient recently had a culture done of the abdomen ulceration which was ESBL and has been treated at the [facility]. Patient has a colostomy proximal to the ulceration to the abdomen. Patient's past medical history significant for atrial fibrillation, dementia, deep vein thrombosis, acid reflux, osteoporosis, BPH, ESBL to the abdominal ulceration, neuropathy, and renal disease. Patient denies diabetes and is a nonsmoker. Review of Systems Review Of Systems: Constitutional: No fever, no chills, no night sweats. No weight change. No weakness, fatigue or lethargy. No daytime sleepiness. Integumentary:reports wounds, no lesions. No rash or pruritus. No unusual bruising. No change in hair or nails. Past Medical History Past Medical History: Atrial Fibrillation, Chest Pain / Angina, Dementia, Deep Vein Thrombosis (DVT), GERD/Reflux, Osteoarthritis (OA), Renal Disease Additional Past Medical History / Comment(s): sepsis, neuropathy, PAST CELLULITIS, ANEMIA, lt hip fracture 05-11-14,rt.knee wounds, vitamin D deficiency , weakness,BPH, History of Any Multi-Drug Resistant Organisms: ESBL, MRSA Year Discovered:: 08/26/19 ESBL 11/24/16 MRSA MDRO Source:: ESBL URINE MRSA KNEE Past Surgical History: Adenoidectomy, Appendectomy, Bowel Resection, Joint Replacement, Tonsillectomy Additional Past Surgical History / Comment(s): B\L knee replacements,bowel sx pt stated not cancer but ended up colostomy (2005), green field filter, orif lt hip, dino/screws, Past Anesthesia/Blood Transfusion Reactions: No Reported Reaction Past Psychological History: Depression Additional Psychological History / Comment(s): Residing at [facility], has been a permanent resident for 2 years. Smoking Status: Never smoker Past Alcohol Use History: None Reported, Rare Past Drug Use History: None Reported - Past Family History Father Additional Family Medical History / Comment(s): at age 45 from cirrhosis of the liver. Mother Family Medical History: Dementia Medications and Allergies Home Medications Medication Instructions Recorded Confirmed Type Ascorbic Acid [Vitamin C] 500 mg PO DAILY 09/09/13 08/29/19 History Ferrous Sulfate [Feosol] 325 mg PO DAILY 09/09/13 08/29/19 History Gabapentin [Neurontin] 300 mg PO BID@0800,1700 05/08/14 08/29/19 History Cholecalciferol [Vitamin D3] 1,000 unit PO DAILY 02/04/15 08/29/19 History Multivitamins, Thera [Theragran] 1 tab PO DAILY 02/04/15 08/29/19 History Hydrocodone/Acetaminophen [[place] 1 tab PO HS 09/15/16 08/29/19 History 5-325] Doxycycline [Vibramycin] 100 mg PO BID@1000,1900 05/21/19 08/29/19 History Famotidine [Pepcid] 20 mg PO DAILY 05/21/19 08/29/19 History Furosemide [Lasix] 20 mg PO Q48H 05/21/19 08/29/19 History Metoprolol Succinate [Toprol XL] 25 mg PO DAILY 05/21/19 08/29/19 History Spironolactone [Aldactone] 25 mg PO DAILY 05/21/19 08/29/19 History Sucralfate [Carafate] 1 gm PO DAILY@1700 05/21/19 08/29/19 History Tamsulosin HCl [Flomax] 0.4 mg PO BID 05/21/19 08/29/19 History Bisacodyl [Dulcolax] 10 mg RECTAL DAILY PRN 05/23/19 08/29/19 History Ipratropium-Albuterol Nebulize 3 ml INHALATION RT-Q6H PRN 05/23/19 08/29/19 History [Duoneb 0.5 mg-3 mg/3 ml Soln] Mag Hydrox/Al Hydrox/Simeth 15 ml PO Q6HR PRN 05/23/19 08/29/19 History [Maalox] Magnesium Hydroxide [Milk of 30 ml PO DAILY PRN 05/23/19 08/29/19 History Magnesia Concentrate] Na Phos,M-B/Na Phos,Di-Ba [Fleet 1 applic RECTAL DAILY PRN 05/23/19 08/29/19 History Adult] Polyvinyl Alcohol/Povidone 1 drop BOTH EYES BID@0800,1700 05/23/19 08/29/19 History [[place] Eye Drop] Triamcinolone 0.1% Ointment 1 applic TOPICAL BID PRN 05/23/19 08/29/19 History [Kenalog 0.1% Ointment] ALPRAZolam [Xanax] 0.25 mg PO HS 08/29/19 08/29/19 History Acetaminophen [Tylenol 8 Hour] 650 mg PO Q4H PRN 08/29/19 08/29/19 History Doxepin HCl [SINEquan] 50 mg PO HS 08/29/19 08/29/19 History Ertapenem [INVanz] 500 mg IVPB DAILY@169908/29/19 08/29/19 History Furosemide [Lasix] 40 mg PO Q48H 08/29/19 08/29/19 History Gabapentin 600 mg PO BID@0800,0 08/29/19 08/29/19 History HYDROcodone/APAP 5-325MG [[place] 1 tab PO Q8H PRN 08/29/19 08/29/19 History 5-325] Lactose-Reduced Food [Ensure Plus] 237 ml PO DAILY 08/29/19 08/29/19 History Menthol [Biofreeze] 1 applic TOPICAL BID@0800,169908/29/19 08/29/19 History Niacinamide 500 mg PO BID@0800,169908/29/19 08/29/19 History Pepto-Bismol Tablet 1 tab PO BID PRN 08/29/19 08/29/19 History Rivastigmine Tartrate [Exelon] 3 mg PO BID 08/29/19 08/29/19 History Vitamins A and D [Vitamin A and D] 1 applic TOPICAL TID 08/29/19 08/29/19 History Warfarin [Coumadin] 2 mg PO SUMOTUTH@169908/29/19 08/29/19 History Warfarin [Coumadin] 3 mg PO WEFRSA@169908/29/19 08/29/19 History Allergies Allergy/AdvReac Type Severity Reaction Status Date / Time aspirin Allergy Unknown Verified 08/29/19 12:34 diphenhydramine Allergy Unknown Verified 08/29/19 12:34 latex Allergy Rash/Hives Verified 08/29/19 12:34 Penicillins Allergy Unknown Verified 08/29/19 12:34 lorazepam [From Ativan] AdvReac Hallucinati Verified 08/29/19 12:34 ons Physical Exam Vitals: Vital Signs Temp Pulse Pulse Resp BP BP BP 08/30/19 11:04 98.1 F 95 18 109/60 08/30/19 08:35 106 H 08/30/19 08:21 106 H 08/30/19 08:00 97.6 F 115 H 18 110/67 08/30/19 04:20 97.8 F 111 H 16 108/66 08/29/19 23:24 97.8 F 106 H 16 111/60 08/29/19 21:25 97.5 F L 100 18 107/74 08/29/19 16:00 98.1 F 101 H 20 111/69 08/29/19 15:53 98.1 F 101 H 20 111/69 08/29/19 15:30 105 H 18 104/78 08/29/19 13:08 114 H 124/88 08/29/19 12:07 98.1 F 146 H 20 106/83 08/29/19 12:04 144 H Pulse Ox 08/30/19 11:04 99 08/30/19 08:35 08/30/19 08:21 08/30/19 08:00 100 08/30/19 04:20 100 08/29/19 23:24 100 08/29/19 21:25 100 08/29/19 16:00 95 08/29/19 15:53 95 08/29/19 15:30 100 08/29/19 13:08 08/29/19 12:07 95 08/29/19 12:04 Intake and Output 08/29/19 08/30/19 08/30/19 22:59 06:59 14:59 Intake Total 100.167 Output Total 125 100 Balance -125 -100 100.167 Intake: Intake, IV Titration 100.167 Amount Diltiazem 125 mg In 100.167 Sodium Chloride 0.9% 100 ml @ 5 MG/HR 5 mls/hr IV .Q24H [facility] Rx#:[id number] Output: Urine 125 100 Other: Voiding Method Incontinent Incontinent Urinal Incontinent # Voids 200 # Bowel Movements 1 Weight 93.44 kg 72.5 kg Physical exam: General Appearance: Alert, cooperative, no distress, appears stated age. Skin: Abdominal ulceration is proximal to the colectomy, it is Limited to skin breakdown, measuring approximately 3 x 3 x 0.1 cm granulation is seen throughout the wound bed. Minimal adherent slough noted. Ulceration to the coccyx is a cluster of 2 with granulation seen throughout and minimal adherent Slough. this is a pressure injury stage II with serosanguineous drainage. Wound edges attached to the wound bed. Left foot second digit ulceration dorsal aspect is healing. all other Skin color, texture, tugor normal, no rashes or lesions. Neurologic: Alert oriented x3 Results CBC & Chem 7: 08/30/19 06:16 08/30/19 06:16 Labs: Abnormal Lab Results - Last 24 Hours (Table) 08/29/19 08/29/19 08/29/19 Range/Units 12:15 12:15 12:15 WBC 12.7 H (3.8-10.6) k/uL RBC 3.82 L (4.30-5.90) m/uL Hgb 11.0 L (13.0-17.5) gm/dL Hct (39.0-53.0) % MCV 102.3 H (80.0-100.0) fL MCHC 28.1 L (31.0-37.0) g/dL RDW 17.6 H (11.5-15.5) % Neutrophils # 11.1 H (1.3-7.7) k/uL Neutrophils # (Manual) (1.3-7.7) k/uL Lymphocytes # 0.3 L (1.0-4.8) k/uL Lymphocytes # (Manual) (1.0-4.8) k/uL Macrocytosis PT 24.6 H (9.0-12.0) sec INR 2.5 H (<1.2) APTT 37.3 H (22.0-30.0) sec Sodium 135 L (137-145) mmol/L Potassium 5.8 H (3.5-5.1) mmol/L Chloride 112 H (98-107) mmol/L Carbon Dioxide 15 L (22-30) mmol/L BUN 57 H (9-20) mg/dL Creatinine 2.50 H (0.66-1.25) mg/dL Glucose 192 H (74-99) mg/dL Troponin I (0.000-0.034) ng/mL Total Protein (6.3-8.2) g/dL Albumin 3.1 L (3.5-5.0) g/dL HDL Cholesterol (40-60) mg/dL Urine Protein (Negative) Urine Blood (Negative) Ur Leukocyte Esterase (Negative) Urine RBC (0-5) /hpf Urine WBC (0-5) /hpf Urine Mucus (None) /hpf 08/29/19 08/29/19 08/29/19 Range/Units 12:15 18:29 21:15 WBC (3.8-10.6) k/uL RBC (4.30-5.90) m/uL Hgb (13.0-17.5) gm/dL Hct (39.0-53.0) % MCV (80.0-100.0) fL MCHC (31.0-37.0) g/dL RDW (11.5-15.5) % Neutrophils # (1.3-7.7) k/uL Neutrophils # (Manual) (1.3-7.7) k/uL Lymphocytes # (1.0-4.8) k/uL Lymphocytes # (Manual) (1.0-4.8) k/uL Macrocytosis PT (9.0-12.0) sec INR (<1.2) APTT (22.0-30.0) sec Sodium (137-145) mmol/L Potassium 5.4 H (3.5-5.1) mmol/L Chloride (98-107) mmol/L Carbon Dioxide (22-30) mmol/L BUN (9-20) mg/dL Creatinine (0.66-1.25) mg/dL Glucose (74-99) mg/dL Troponin I 0.038 H* 0.044 H* (0.000-0.034) ng/mL Total Protein (6.3-8.2) g/dL Albumin (3.5-5.0) g/dL HDL Cholesterol (40-60) mg/dL Urine Protein (Negative) Urine Blood (Negative) Ur Leukocyte Esterase (Negative) Urine RBC (0-5) /hpf Urine WBC (0-5) /hpf Urine Mucus (None) /hpf 0608/30/19 08/30/19 Range/Units 00:06 03:54 06:16 WBC (3.8-10.6) k/uL RBC (4.30-5.90) m/uL Hgb (13.0-17.5) gm/dL Hct (39.0-53.0) % MCV (80.0-100.0) fL MCHC (31.0-37.0) g/dL RDW (11.5-15.5) % Neutrophils # (1.3-7.7) k/uL Neutrophils # (Manual) (1.3-7.7) k/uL Lymphocytes # (1.0-4.8) k/uL Lymphocytes # (Manual) (1.0-4.8) k/uL Macrocytosis PT (9.0-12.0) sec INR (<1.2) APTT (22.0-30.0) sec Sodium (137-145) mmol/L Potassium 5.8 H (3.5-5.1) mmol/L Chloride 116 H (98-107) mmol/L Carbon Dioxide 14 L (22-30) mmol/L BUN 57 H (9-20) mg/dL Creatinine 2.45 H (0.66-1.25) mg/dL Glucose 103 H (74-99) mg/dL Troponin I 0.051 H* (0.000-0.034) ng/mL Total Protein 6.1 L (6.3-8.2) g/dL Albumin 2.8 L (3.5-5.0) g/dL HDL Cholesterol 63 H (40-60) mg/dL Urine Protein 2+ H (Negative) Urine Blood Large H (Negative) Ur Leukocyte Esterase Large H (Negative) Urine RBC >182 H (0-5) /hpf Urine WBC >182 H (0-5) /hpf Urine Mucus Occasional H (None) /hpf 08/30/19 08/30/19 Range/Units 06:16 06:16 WBC 13.0 H (3.8-10.6) k/uL RBC 3.40 L (4.30-5.90) m/uL Hgb 10.3 L (13.0-17.5) gm/dL Hct 35.8 L (39.0-53.0) % MCV 105.4 H (80.0-100.0) fL MCHC 28.7 L (31.0-37.0) g/dL RDW 17.6 H (11.5-15.5) % Neutrophils # (1.3-7.7) k/uL Neutrophils # (Manual) 11.83 H (1.3-7.7) k/uL Lymphocytes # (1.0-4.8) k/uL Lymphocytes # (Manual) 0.39 L (1.0-4.8) k/uL Macrocytosis Marked A PT 26.4 H (9.0-12.0) sec INR 2.7 H (<1.2) APTT (22.0-30.0) sec Sodium (137-145) mmol/L Potassium (3.5-5.1) mmol/L Chloride (98-107) mmol/L Carbon Dioxide (22-30) mmol/L BUN (9-20) mg/dL Creatinine (0.66-1.25) mg/dL Glucose (74-99) mg/dL Troponin I (0.000-0.034) ng/mL Total Protein (6.3-8.2) g/dL Albumin (3.5-5.0) g/dL HDL Cholesterol (40-60) mg/dL Urine Protein (Negative) Urine Blood (Negative) Ur Leukocyte Esterase (Negative) Urine RBC (0-5) /hpf Urine WBC (0-5) /hpf Urine Mucus (None) /hpf Assessment and Plan (1) Nonhealing skin ulcer, limited to breakdown of skin Current Visit: Yes Status: Acute Code(s): L98.491 - NON-PRS CHRONIC ULCER SKIN/ SITES LIMITED TO BRKDWN SKIN SNOMED Code(s): 51689152 (2) Pressure injury of coccygeal region, stage 2 Current Visit: Yes Status: Acute Code(s): L89.152 - PRESSURE ULCER OF SACRAL REGION, STAGE 2 SNOMED Code(s): 481577863 Plan: This is a resident of [facility]. Patient states that he receives wound care through the wound care team at [facility]. At this time we'll apply zinc barrier Cream to the abdomen and zinc barrier cream to the coccyx with a foam sacrum dressing. Dressings can be changed daily. If patient requires additional wound care and outpatient setting he may set up an appointment with the wound care center. Thank you kindly for the consultation any questions please contact the wound care center DNP note has been reviewed and discussed with Dr. Diane and the impression and plan of care has been directed as dictated.
--- NOTE | 2019-08-30 13:21 | US ---
EXAMINATION TYPE: US kidneys/renal and bladder DATE OF EXAM: 08/30/2019 COMPARISON: CT 2014. CLINICAL HISTORY: RF. Abnormal labs. EXAM MEASUREMENTS: Right Kidney: 10.3 x 3.5 x 4.9 cm Left Kidney: 10.0 x 4.3 x 4.9 cm Right Kidney: Appears echogenic in appearance. Limited visualization due to echogenicity with surrou nding tissues. Lower pole cystic appearing lesion = 1.7 x 1.9 x 1.7 cm Left Kidney: Appears echogenic in appearance. Limited visualization due to echogenicity with surroun ding tissues. Upper pole cystic appearing lesion = 2.4 x 2.0 x 2.6 cm Bladder: Not well distended, anechoic Bilateral Jets not seen When scanning the right kidney and adjacent liver is heterogeneously hyperechoic suggesting diffuse f atty infiltration. There is marked cortical thinning and some round anechoic areas plantarflex simple thin-walled cysts. Bladder poorly distended and thus suboptimally evaluated. Left kidney shows more prominent increased cortical echogenicity and additional thin-walled anechoic areas consistent with simple cysts. IMPRESSION: Suboptimal study without hydronephrosis seen bilaterally. Findings consistent with chroni c medical renal disease redemonstrated.
--- NOTE | 2019-08-30 13:56 | P.PN ---
Subjective Progress Note Date: 08/30/19 83-year-old male one of my office patient who has been in [facility] for the last 2 years was known to have history of coronary artery disease, A. 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 I received a phone call from [facility] with Mr. Damico the nurse complaining of that he is not feeling well and had significant rapid pulse running over 100 2250 bpm with slightly low blood pressure. Not been able to stabilize him in [facility] ended up being transfer to [facility] emergency department where was seen and evaluated he was running in A. fib with rapid ventricular response was not able to control his symptom without IV Cardizem patient is already on anticoagulation his INR was tested and found to be at 2.5. Consult cardiology Patient on Cardizem drip and admit patient to the hospital for the above problem. 08/29: Patient is seen today in the cardiac stepdown unit. 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 Heart rate is running 95-115. Blood pressure 109/60, pulse ox 99% on 2 L nasal cannula. Patient is reaching 500 on incentive spirometry. Patient has been evaluated by cardiology and Cardizem drip discontinued, metoprolol XL increased to 50 mg twice daily. We will plan to discontinue Coumadin altogether and start the patient on eliquis starting tomorrow. Patient does have some dark red hematuria for which we will reevaluate in the morning. Start eliquis. Patient was ordered for 1 dose of IV Lasix. Echocardiogram reveals EF of 55-60% with moderate concentric left ventricular hypertrophy, trace mitral regurgitation, trace tricuspid regurgitation. Consult added for Dr. Sloan and she has recommended IV bicarb, discontinue Aldactone, discontinue milk of magnesia and sodium biphosphate enema. Post void residual to be checked. Renal ultrasound reveals suboptimal study without hydronephrosis seen bilaterally. Findings consistent with chronic medical renal disease. Consult with Dr. Alfred added for ESBL abdominal wound recently treated at [facility], chronic wound to the right lower extremity which we he is on chronic doxycycline and possibly the ertapenem could have caused tachycardia. Hemoglobin is 10.3 and will be re checked this afternoon and in the morning. Hemoglobin 10.3 is close to patient's baseline. Patient has been seen by the wound care team and ordered zinc barrier cream to the abdomen and also to the coccyx area along with a foam sacral dressing to be changed daily. Objective - Vital Signs Vital signs: Vital Signs Temp 97.6 F 08/30/19 08:00 Pulse 106 H 08/30/19 08:35 Resp 18 08/30/19 08:00 BP 110/67 08/30/19 08:00 Pulse Ox 100 08/30/19 08:00 Intake & Output 08/29/19 08/30/19 08/30/19 18:59 06:59 18:59 Intake Total 100.167 Output Total 75 150 Balance -75 -150 100.167 Weight 93.44 kg 72.5 kg Intake: Intake, IV Titration 100.167 Amount Diltiazem 125 mg In 100.167 Sodium Chloride 0.9% 100 ml @ 5 MG/HR 5 mls/hr IV .Q24H [facility] Rx#:[id number] Output: Urine 75 150 Other: Voiding Method Urinal Incontinent Incontinent # Voids 200 # Bowel Movements 1 - Exam Review of Systems CONSTITUTIONAL: Well-developed no acute respiratory distress. Denies fevers, denies chills. EYES: No icterus sclerae, no conjunctivitis. EARS, NOSE, MOUTH, THROAT, and FACE: No sore throat, lymphadenopathy, carotid bruits or deformity. RESPIRATORY: Denies shortness of breath no cough wheezes. CARDIOVASCULAR: Denies PND orthopnea and edema no chest pain no shortness of breath denies dyspnea. GASTROINTESTINAL: No Abd pain, Nausea or vomiting, no Diarrhea or constipation, No GI Bleed, no distention or masses. Positive ostomy with no diarrhea. GENITOURINARY: Negative for Hematuria or UTI, no kidney stones. INTEGUMENT/BREAST: Negative for any muscular injury with mild osteoarthritis.. HEMATOLOGIC/LYMPHATIC: Negative for bleed or purpura. MUSCULOSKELTAL: chronic one and area and drainage from prosthetic knee in the right side. NEURLOGICAL: No LOC, Sz or syncope, blurred vision dizziness or abnormality.. BEHAVIORAL/PSYCH: Negative. ENDOCRINE: Negative. Physical examination General Appearance: Alert, cooperative, no distress, appears stated age. Moderately overweight Neck HEENT: Supple, no lymphadenopathy, no thyroid enlargement, no carotid bruits. Lungs: Decreased breath some bilateral rhonchi no crackles or wheezes. Chest Wall: Decrease expansion with deep inspiration no tenderness and no deformity was found on exam, no costochondral pain or discomfort. Heart: Irregular rate and rhythm, S1, S2 positive, 3 positive JVD with minimal tachycardia.. Back: Symmetric, no curvature, ROM normal, no CVA tenderness. Abdomen: Soft, non-tender, bowel sounds active all four quadrants, no masses, ostomy stoma looks good with no abnormality or hernia. Has a small area in the mid abdominal region with slight drainage which apparently was ESBL from culture done 2 days ago. Extremities: Significant edema bilaterally right knee still have significant scar tissue with prostatic area with the spot on the incision looks healing with slight drainage only. Pulses: Decreased bilaterally. Skin: Skin color, texture, tugor normal, no rashes or lesions. Neurologic: Alert oriented x3 cranial nerves II through XII intact, no motor deficit, no abnormal balance or gait. - Labs CBC & Chem 7: 08/30/19 06:16 08/30/19 06:16 Labs: Abnormal Lab Results - Last 24 Hours (Table) 08/29/19 08/29/19 08/29/19 Range/Units 12:15 12:15 12:15 WBC 12.7 H (3.8-10.6) k/uL RBC 3.82 L (4.30-5.90) m/uL Hgb 11.0 L (13.0-17.5) gm/dL Hct (39.0-53.0) % MCV 102.3 H (80.0-100.0) fL MCHC 28.1 L (31.0-37.0) g/dL RDW 17.6 H (11.5-15.5) % Neutrophils # 11.1 H (1.3-7.7) k/uL Neutrophils # (Manual) (1.3-7.7) k/uL Lymphocytes # 0.3 L (1.0-4.8) k/uL Lymphocytes # (Manual) (1.0-4.8) k/uL Macrocytosis PT 24.6 H (9.0-12.0) sec INR 2.5 H (<1.2) APTT 37.3 H (22.0-30.0) sec Sodium 135 L (137-145) mmol/L Potassium 5.8 H (3.5-5.1) mmol/L Chloride 112 H (98-107) mmol/L Carbon Dioxide 15 L (22-30) mmol/L BUN 57 H (9-20) mg/dL Creatinine 2.50 H (0.66-1.25) mg/dL Glucose 192 H (74-99) mg/dL Troponin I (0.000-0.034) ng/mL Total Protein (6.3-8.2) g/dL Albumin 3.1 L (3.5-5.0) g/dL HDL Cholesterol (40-60) mg/dL Urine Protein (Negative) Urine Blood (Negative) Ur Leukocyte Esterase (Negative) Urine RBC (0-5) /hpf Urine WBC (0-5) /hpf Urine Mucus (None) /hpf 08/29/19 08/29/19 08/29/19 Range/Units 12:15 18:29 21:15 WBC (3.8-10.6) k/uL RBC (4.30-5.90) m/uL Hgb (13.0-17.5) gm/dL Hct (39.0-53.0) % MCV (80.0-100.0) fL MCHC (31.0-37.0) g/dL RDW (11.5-15.5) % Neutrophils # (1.3-7.7) k/uL Neutrophils # (Manual) (1.3-7.7) k/uL Lymphocytes # (1.0-4.8) k/uL Lymphocytes # (Manual) (1.0-4.8) k/uL Macrocytosis PT (9.0-12.0) sec INR (<1.2) APTT (22.0-30.0) sec Sodium (137-145) mmol/L Potassium 5.4 H (3.5-5.1) mmol/L Chloride (98-107) mmol/L Carbon Dioxide (22-30) mmol/L BUN (9-20) mg/dL Creatinine (0.66-1.25) mg/dL Glucose (74-99) mg/dL Troponin I 0.038 H* 0.044 H* (0.000-0.034) ng/mL Total Protein (6.3-8.2) g/dL Albumin (3.5-5.0) g/dL HDL Cholesterol (40-60) mg/dL Urine Protein (Negative) Urine Blood (Negative) Ur Leukocyte Esterase (Negative) Urine RBC (0-5) /hpf Urine WBC (0-5) /hpf Urine Mucus (None) /hpf 08/30/19 08/30/19 08/30/19 Range/Units 00:06 03:54 06:16 WBC (3.8-10.6) k/uL RBC (4.30-5.90) m/uL Hgb (13.0-17.5) gm/dL Hct (39.0-53.0) % MCV (80.0-100.0) fL MCHC (31.0-37.0) g/dL RDW (11.5-15.5) % Neutrophils # (1.3-7.7) k/uL Neutrophils # (Manual) (1.3-7.7) k/uL Lymphocytes # (1.0-4.8) k/uL Lymphocytes # (Manual) (1.0-4.8) k/uL Macrocytosis PT (9.0-12.0) sec INR (<1.2) APTT (22.0-30.0) sec Sodium (137-145) mmol/L Potassium 5.8 H (3.5-5.1) mmol/L Chloride 116 H (98-107) mmol/L Carbon Dioxide 14 L (22-30) mmol/L BUN 57 H (9-20) mg/dL Creatinine 2.45 H (0.66-1.25) mg/dL Glucose 103 H (74-99) mg/dL Troponin I 0.051 H* (0.000-0.034) ng/mL Total Protein 6.1 L (6.3-8.2) g/dL Albumin 2.8 L (3.5-5.0) g/dL HDL Cholesterol 63 H (40-60) mg/dL Urine Protein 2+ H (Negative) Urine Blood Large H (Negative) Ur Leukocyte Esterase Large H (Negative) Urine RBC >182 H (0-5) /hpf Urine WBC >182 H (0-5) /hpf Urine Mucus Occasional H (None) /hpf 06/05/20 06/05/20 Range/Units 06:16 06:16 WBC 13.0 H (3.8-10.6) k/uL RBC 3.40 L (4.30-5.90) m/uL Hgb 10.3 L (13.0-17.5) gm/dL Hct 35.8 L (39.0-53.0) % MCV 105.4 H (80.0-100.0) fL MCHC 28.7 L (31.0-37.0) g/dL RDW 17.6 H (11.5-15.5) % Neutrophils # (1.3-7.7) k/uL Neutrophils # (Manual) 11.83 H (1.3-7.7) k/uL Lymphocytes # (1.0-4.8) k/uL Lymphocytes # (Manual) 0.39 L (1.0-4.8) k/uL Macrocytosis Marked A PT 26.4 H (9.0-12.0) sec INR 2.7 H (<1.2) APTT (22.0-30.0) sec Sodium (137-145) mmol/L Potassium (3.5-5.1) mmol/L Chloride (98-107) mmol/L Carbon Dioxide (22-30) mmol/L BUN (9-20) mg/dL Creatinine (0.66-1.25) mg/dL Glucose (74-99) mg/dL Troponin I (0.000-0.034) ng/mL Total Protein (6.3-8.2) g/dL Albumin (3.5-5.0) g/dL HDL Cholesterol (40-60) mg/dL Urine Protein (Negative) Urine Blood (Negative) Ur Leukocyte Esterase (Negative) Urine RBC (0-5) /hpf Urine WBC (0-5) /hpf Urine Mucus (None) /hpf Assessment and Plan Plan: 1 paroxysmal atrial fibrillation with rapid ventricular response. Cardizem drip to be discontinued, metoprolol increased to 50 mg twice daily, discontinue Coumadin and start eliquis tomorrow while monitoring hematuria. 2 history of coronary artery disease: Patient has been seeing cardiology regular basis and testing are up-to-date. 3 elevated troponin secondary to hypoxia and A. fib with RVR. Cardiology consult appreciated. 4 stage IV chronic kidney disease secondary to diabetic nephropathy and nephrosclerosis and acute kidney injury with hyperkalemia and non-gap metabolic acidosis. Consult with nephrology. Bicarb drip started. 5 acute on chronic diastolic heart failure. patient has been on furosemide, spi ronolactone and metoprolol he was taking off Nitesh because of kidney function. 6 history of ESBL of the stomach wall: Patient has been on ertapenem which not a clear whether ertapenem had a created any problem with interaction causing the A. fib at this point. 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 Consult with Dr. Alfred to evaluate. 8 chronic history of diabetic neuropathy: Has been on gabapentin total of 900 mg twice a day. 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 10 history of BPH: Has been on tamsulosin 0.4 mg twice a day with good result so far. 11 history of dementia: Alzheimer type, has been on Aricept and doxepin. 12 reactive airway with mild COPD: Continue patient on albuterol/ipratropium. 13 chronic pain syndrome: Has been on hydrocodone on as needed basis. 14 severe gastritis and recurrent bleed, patient has been on Carafate along with pantoprazole. Was complaining of mild dysphagia and was post to see Dr. Garcia for EGD and possible need diet patient. 15 anticoagulation management: Has been on warfarin which up till now, transitioned eliquis. 16. Hematuria. Recheck CBC this afternoon and in the morning. Monitor hematuria at this is cleared, eliquis will be started in the morning. 17. Chronic stage II decubitus ulcer to the coccyx region, abdominal ulceration proximal to the colectomy, both present on admission. Wound team consult appreciated. Zinc barrier cream to be utilized. 18. COVID-19 infection. 19. Pyuria. Urine culture to be obtained. Consult with Dr. Aflred. 20. Anemia of chronic kidney disease. Monitor for bleeding. 21. DVT prophylaxis: Patient remain on anticoagulation. CODE STATUS: Full code. Discharge plan: Return to [facility] on Monday Impression and plan of care have been directed as dictated by the signing physician. Lyndsay Gimenez nurse practitioner acting as scribe for signing physician.
[2019-08-30] MEDS ORDERED: ZINC OXIDE 20% OINT 28.4 GM TUBE TOPICAL PRN (14:47)
[2019-08-30 14:56] LABS: Anisocytosis Slight; HGB 9.3 gm/dL (13.0-17.5); Hypochromasia Marked; MCH 30.3 pg (25.0-35.0); MCHC 29.1 g/dL (31.0-37.0); Macrocytosis Moderate; Mean Platelet Volume 7.1; Platelet Count 183 k/uL (150-450); RBC 3.08 m/uL (4.30-5.90); RDW 17.8 % (11.5-15.5)
[2019-08-30 15:04] LABS: Potassium 5.5 mmol/L (3.5-5.1)
[2019-08-30] MEDS ORDERED: WARFARIN 3 MG TAB PO SCH (17:00)
[2019-08-30] MEDS ORDERED: ERTAPENEM 1 GM VIAL IVPB SCH (17:00)
[2019-08-30] MEDS: ERTAPENEM 0.5 GM in SODIUM CHLORIDE 0.9% 50 ML IVPB SCH (18:04)
[2019-08-30] MEDS: SUCRALFATE 1 GM TAB PO SCH (18:04)
[2019-08-30] MEDS: DEXTROSE 5% IN WATER 1,000 ML with SODIUM BICARB (1 MEQ/ML) 150 ML IV SCH (18:56)
[2019-08-30] MEDS: ALPRAZolam 0.25 MG TAB PO SCH (21:20)
[2019-08-30] MEDS: DOXEPIN 25 MG CAP PO SCH (21:22)
[2019-08-30] MEDS: HYDROcodone/APAP 5-325MG 1 EACH TAB PO SCH (21:23)
[2019-08-31 07:18] LABS: Anisocytosis Slight; HCT 28.5 % (39.0-53.0); HGB 8.3 gm/dL (13.0-17.5); Hypochromasia Marked; MCH 30.1 pg (25.0-35.0); MCHC 29.3 g/dL (31.0-37.0); MCV 102.9 fL (80.0-100.0); Macrocytosis Moderate; Mean Platelet Volume 7.3; Platelet Count 179 k/uL (150-450); RBC 2.77 m/uL (4.30-5.90); RDW 18.1 % (11.5-15.5); WBC 12.3 k/uL (3.8-10.6)
[2019-08-31 07:29] LABS: Prothrombin Time 28.8 sec (9.0-12.0)
[2019-08-31] MEDS: METOPROLOL SUCCINATE (ER) 50 MG TAB.ER.24H PO SCH (08:24)
[2019-08-31] MEDS: GABAPENTIN 300 MG CAP PO SCH ×2 (08:24→17:27)
[2019-08-31] MEDS: CHOLECALCIFEROL 1,000 UNIT TAB PO SCH (08:24)
[2019-08-31] MEDS: DONEPEZIL 10 MG TAB PO SCH (08:24)
[2019-08-31] MEDS: FAMOTIDINE 20 MG TAB PO SCH (08:24)
[2019-08-31] MEDS: MULTIVITAMINS, THERA 1 EACH TAB PO SCH (08:24)
[2019-08-31] MEDS: ARTIFICIAL TEARS-HYPROMELLOSE DROPS 15 ML BTL BOTH EYES SCH ×2 (08:25→17:28)
[2019-08-31] MEDS: TAMSULOSIN 0.4 MG CAP.ER.24H PO SCH ×2 (08:25→21:10)
[2019-08-31] MEDS: ASCORBIC ACID 500 MG TAB PO SCH (08:25)
[2019-08-31] MEDS: METHYL SALICYLATE/MENTHOL CREAM 5 OZ TOPICAL SCH ×2 (08:25→17:29)
[2019-08-31] MEDS: FERROUS SULFATE 325 MG TAB PO SCH (08:25)
[2019-08-31] MEDS: PETROLATUM, WHITE OINT 50 GM TUBE TOPICAL SCH ×3 (08:26→21:11)
[2019-08-31] MEDS: HYDROcodone/APAP 5-325MG 1 EACH TAB PO PRN (08:33)
[2019-08-31 09:00] LABS: Calcium 9.1 mg/dL (8.4-10.2); Potassium 5.3 mmol/L (3.5-5.1)
[2019-08-31] MEDS ORDERED: APIXABAN 2.5 MG TABLET PO SCH (09:00)
[2019-08-31] MEDS ORDERED: FUROSEMIDE 40 MG TAB PO SCH (09:00)
--- NOTE | 2019-08-31 10:01 | P.PN ---
Subjective Progress Note Date: 08/31/19 83-year-old male one of my office patient who has been in [facility] for the last 2 years was known to have history of coronary artery disease, A. 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 I received a phone call from [facility] with Mr. Damico the nurse complaining of that he is not feeling well and had significant rapid pulse running over 100 2250 bpm with slightly low blood pressure. Not been able to stabilize him in [facility] ended up being transfer to [facility] emergency department where was seen and evaluated he was running in A. fib with rapid ventricular response was not able to control his symptom without IV Cardizem patient is already on anticoagulation his INR was tested and found to be at 2.5. Consult cardiology Patient on Cardizem drip and admit patient to the hospital for the above problem. 08/29: Patient is seen today in the cardiac stepdown unit. 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 Heart rate is running 95-115. Blood pressure 109/60, pulse ox 99% on 2 L nasal cannula. Patient is reaching 500 on incentive spirometry. Patient has been evaluated by cardiology and Cardizem drip discontinued, metoprolol XL increased to 50 mg twice daily. We will plan to discontinue Coumadin altogether and start the patient on eliquis starting tomorrow. Patient does have some dark red hematuria for which we will reevaluate in the morning. Start eliquis. Patient was ordered for 1 dose of IV Lasix. Echocardiogram reveals EF of 55-60% with moderate concentric left ventricular hypertrophy, trace mitral regurgitation, trace tricuspid regurgitation. Consult added for Dr. Sloan and she has recommended IV bicarb, discontinue Aldactone, discontinue milk of magnesia and sodium biphosphate enema. Post void residual to be checked. Renal ultrasound reveals suboptimal study without hydronephrosis seen bilaterally. Findings consistent with chronic medical renal disease. Consult with Dr. Alfred added for ESBL abdominal wound recently treated at care home, chronic wound to the right lower extremity which we he is on chronic doxycycline and possibly the ertapenem could have caused tachycardia. Hemoglobin is 10.3 and will be re checked this afternoon and in the morning. Hemoglobin 10.3 is close to patient's baseline. Patient has been seen by the wound care team and ordered zinc barrier cream to the abdomen and also to the coccyx area along with a foam sacral dressing to be changed daily. 08/30: Patient denies any new complaints. He states he is feeling well today. He denies having any chest pain or palpitations. senior agricultural assistant is a sinus rhythm with first-degree block with heart rate running in the 80s, he has been afebrile, blood pressure 96/61, pulse ox 99% on 2 L nasal cannula. Repeat blood work reveals WBC 12.3, hemoglobin 8.3, platelet count 179. INR is 3.0 and eliquis will be placed on hold. Sodium 136, potassium 5.3, chloride 111, CO2 20, BUN 16 creatinine 2.44. Blood sugar 105. Urine culture is in progress. Consult Dr. Alfred is pending. Anticipate discharge back to [facility] on Monday. Objective - Vital Signs Vital signs: Vital Signs Temp 97.4 F L 08/31/19 04:00 Pulse 84 08/31/19 04:00 Resp 16 08/31/19 04:00 BP 107/65 08/31/19 04:00 Pulse Ox 100 08/31/19 04:00 Intake & Output 08/30/19 08/31/19 08/31/19 18:59 06:59 18:59 Intake Total 500.167 Output Total 550 150 Balance -49.833 -150 Weight 72.5 kg 73 kg Intake: Intake, IV Titration 100.167 Amount Diltiazem 125 mg In 100.167 Sodium Chloride 0.9% 100 ml @ 5 MG/HR 5 mls/hr IV .Q24H [facility] Rx#:[id number] Oral 400 Output: Urine 300 50 Post Void Residual 50 Stool 200 100 Other: Voiding Method Urinal Urinal Incontinent Incontinent # Voids 1 - Exam Review of Systems CONSTITUTIONAL: Denies acute respiratory distress. Denies fevers, denies chills. EYES: No icterus sclerae, no conjunctivitis. EARS, NOSE, MOUTH, THROAT, and FACE: No sore throat, lymphadenopathy, carotid bruits or deformity. RESPIRATORY: Denies shortness of breath no cough wheezes. CARDIOVASCULAR: Denies PND orthopnea and edema no chest pain no shortness of breath denies dyspnea. GASTROINTESTINAL: No Abd pain, Nausea or vomiting, no Diarrhea or constipation, No GI Bleed, no distention or masses. Positive ostomy with no diarrhea. GENITOURINARY: Negative for Hematuria or UTI, no kidney stones. INTEGUMENT/BREAST: Negative for any muscular injury with mild osteoarthritis.. HEMATOLOGIC/LYMPHATIC: Negative for bleed or purpura. MUSCULOSKELTAL: chronic one and area and drainage from prosthetic knee in the right side. NEURLOGICAL: No LOC, Sz or syncope, blurred vision dizziness or abnormality.. BEHAVIORAL/PSYCH: Negative. ENDOCRINE: Negative. Physical examination General Appearance: Alert, cooperative, no distress, appears stated age. Moderately overweight Neck HEENT: Supple, no lymphadenopathy, no thyroid enlargement, no carotid bruits. Lungs: Decreased breath some bilateral rhonchi no crackles or wheezes. Chest Wall: Decrease expansion with deep inspiration no tenderness and no deformity was found on exam, no costochondral pain or discomfort. Heart: Irregular rate and rhythm, S1, S2 positive, 3 positive JVD with minimal tachycardia.. Back: Symmetric, no curvature, ROM normal, no CVA tenderness. Abdomen: Soft, non-tender, bowel sounds active all four quadrants, no masses, ostomy stoma looks good with no abnormality or hernia. Has a small area in the mid abdominal region with slight drainage which apparently was ESBL. Extremities: Significant edema bilaterally right knee still have significant scar tissue with prostatic area with the spot on the incision looks healing with slight drainage only. Pulses: Decreased bilaterally. Skin: Skin color, texture, tugor normal, no rashes or lesions. Neurologic: Alert oriented x3 cranial nerves II through XII intact, no motor deficit, no abnormal balance or gait. - Labs CBC & Chem 7: 08/31/19 06:35 08/31/19 06:36 Labs: Abnormal Lab Results - Last 24 Hours (Table) 08/30/19 08/30/19 08/31/19 Range/Units 14:23 14:23 06:35 WBC 13.0 H (3.8-10.6) k/uL RBC 3.08 L (4.30-5.90) m/uL Hgb 9.3 L (13.0-17.5) gm/dL Hct 32.0 L (39.0-53.0) % MCV 104.0 H (80.0-100.0) fL MCHC 29.1 L (31.0-37.0) g/dL RDW 17.8 H (11.5-15.5) % PT 28.8 H (9.0-12.0) sec INR 3.0 H (<1.2) Sodium 136 L (137-145) mmol/L Potassium 5.5 H (3.5-5.1) mmol/L Chloride 114 H (98-107) mmol/L Carbon Dioxide 14 L (22-30) mmol/L 08/31/19 Range/Units 06:35 WBC 12.3 H (3.8-10.6) k/uL RBC 2.77 L (4.30-5.90) m/uL Hgb 8.3 L (13.0-17.5) gm/dL Hct 28.5 L (39.0-53.0) % MCV 102.9 H (80.0-100.0) fL MCHC 29.3 L (31.0-37.0) g/dL RDW 18.1 H (11.5-15.5) % PT (9.0-12.0) sec INR (<1.2) Sodium (137-145) mmol/L Potassium (3.5-5.1) mmol/L Chloride (98-107) mmol/L Carbon Dioxide (22-30) mmol/L Microbiology - Last 24 Hours (Table) 08/30/19 15:10 Urine Culture - Preliminary Urine,Voided Assessment and Plan Plan: 1 paroxysmal atrial fibrillation with rapid ventricular response. Cardizem drip to be discontinued, metoprolol increased to 50 mg twice daily, discontinue Coumadin and hold eliquis while monitoring INR and hematuria. Cardiology consult appreciated. 2 history of coronary artery disease: Patient has been seeing cardiology regular basis and testing are up-to-date. 3 elevated troponin secondary to hypoxia and A. fib with RVR. Cardiology consult appreciated. 4 stage IV chronic kidney disease secondary to diabetic nephropathy and nephrosclerosis and acute kidney injury with hyperkalemia and non-gap metabolic acidosis. Consult with nephrology. Bicarb drip started. 5 acute on chronic diastolic heart failure. patient has been on furosemide, spironolactone and metoprolol he was taking off Nitesh because of kidney function. 6 history of ESBL of the stomach wall: Patient has been on ertapenem which not a clear whether ertapenem had a created any problem with interaction causing the A . fib at this point. 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 Consult with Dr. Alfred to evaluate. 8 chronic history of diabetic neuropathy: Has been on gabapentin total of 900 mg twice a day. 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 10 history of BPH: Has been on tamsulosin 0.4 mg twice a day with good result so far. 11 history of dementia: Alzheimer type, has been on Aricept and doxepin. 12 reactive airway with mild COPD: Continue patient on albuterol/ipratropium. 13 chronic pain syndrome: Has been on hydrocodone on as needed basis. 14 severe gastritis and recurrent bleed, patient has been on Carafate along with pantoprazole. Was complaining of mild dysphagia and was post to see Dr. Garcia for EGD and possible need diet patient. 15 anticoagulation management: Has been on warfarin which up till now, transitioned eliquis. 16. Hematuria. Recheck CBC this afternoon and in the morning. Monitor hematuria at this is cleared, eliquis will be started in the morning. 17. Chronic stage II decubitus ulcer to the coccyx region, abdominal ulceration proximal to the colectomy, both present on admission. Wound team consult appreciated. Zinc barrier cream to be utilized. 18. COVID-19 infection. 19. Pyuria. Urine culture to be obtained. Consult with Dr. Alfred. 20. Anemia of chronic kidney disease. Monitor for bleeding. 21. DVT prophylaxis: Patient remain on anticoagulation. CODE STATUS: Full code. Discharge plan: Return to [facility] on Monday Impression and plan of care have been directed as dictated by the signing physician. Lyndsay Gimenez nurse practitioner acting as scribe for signing physician.
--- NOTE | 2019-08-31 10:20 | P.CONS ---
History of Present Illness - Reason for Consult Consult date: 08/30/19 abd wound + cultures and UTI Requesting physician: Dwayne Coreas - Chief Complaint Weakness and dizziness x few days - History of Present Illness Patient is a 83-year male [facility] patient who has been brought into the ER by EMS for evaluation of feeling weak and lightheaded when he stands up patient was found to be in A. fib with RVR and subsequently has been brought into the ER for further evaluation patient also have a history of a nonhealing wound to the abdominal wall is not sure for how he has these wounds however the patient did have a colostomy next to date patient did have a cultures done from it in the outpatient setting which came back positive with ESBL E. coli for which infectious disease was consulted today for further management of antibiotic the patient denies having any pain into his abdominal wound area there has been no fever during this admission the patient did have a mild elevated white count 12.7-13,000 during this admission and he did have a positive UA with urine cultures currently pending abdominal cultures done on August 26, 2019 were positive for Klebsiella and ESBL Proteus mirabilis patient did have a chest x-ray which did shows trace left effusion and no evidence of any consolidation patient has been started on Invanz and doxycycline infectious disease was consulted for further management of antibiotic therapy. Review of Systems Positive point has been mentioned in HPI rest of the systems are negative Past Medical History Past Medical History: Atrial Fibrillation, Chest Pain / Angina, Dementia, Deep Vein Thrombosis (DVT), GERD/Reflux, Osteoarthritis (OA), Renal Disease Additional Past Medical History / Comment(s): sepsis, neuropathy, PAST CELLULITIS, ANEMIA, lt hip fracture 05-11-15,rt.knee wounds, vitamin D deficiency, weakness,BPH, History of Any Multi-Drug Resistant Organisms: ESBL, MRSA Year Discovered:: 08/26/19 ESBL 11/24/16 MRSA MDRO Source:: ESBL URINE MRSA KNEE Past Surgical History: Adenoidectomy, Appendectomy, Bowel Resection, Joint Replacement, Tonsillectomy Additional Past Surgical History / Comment(s): B\L knee replacements,bowel sx pt stated not cancer but ended up colostomy (2005), green field filter, orif lt hip, dino/screws, Past Anesthesia/Blood Transfusion Reactions: No Reported Reaction Past Psychological History: Depression Additional Psychological History / Comment(s): Residing at [facility], has been a permanent resident for 2 years. Smoking Status: Never smoker Past Alcohol Use History: None Reported, Rare Past Drug Use History: None Reported - Past Family History Father Additional Family Medical History / Comment(s): at age 45 from cirrhosis of the liver. Mother Family Medical History: Dementia Medications and Allergies Home Medications Medication Instructions Recorded Confirmed Type Ascorbic Acid [Vitamin C] 500 mg PO DAILY 09/09/13 08/29/19 History Ferrous Sulfate [Feosol] 325 mg PO DAILY 09/09/13 08/29/19 History Gabapentin [Neurontin] 300 mg PO BID@0800,1700 05/08/14 08/29/19 History Cholecalciferol [Vitamin D3] 1,000 unit PO DAILY 02/04/15 08/29/19 History Multivitamins, Thera [Theragran] 1 tab PO DAILY 02/04/15 08/29/19 History Hydrocodone/Acetaminophen [[place] 1 tab PO HS 09/15/16 08/29/19 History 5-325] Doxycycline [Vibramycin] 100 mg PO BID@1000,1900 05/21/19 08/29/19 History Famotidine [Pepcid] 20 mg PO DAILY 05/21/19 08/29/19 History Furosemide [Lasix] 20 mg PO Q48H 05/21/19 08/29/19 History Metoprolol Succinate [Toprol XL] 25 mg PO DAILY 05/21/19 08/29/19 History Spironolactone [Aldactone] 25 mg PO DAILY 05/21/19 08/29/19 History Sucralfate [Carafate] 1 gm PO DAILY@1700 05/21/19 08/29/19 History Tamsulosin HCl [Flomax] 0.4 mg PO BID 05/21/19 08/29/19 History Bisacodyl [Dulcolax] 10 mg RECTAL DAILY PRN 05/23/19 08/29/19 History Ipratropium-Albuterol Nebulize 3 ml INHALATION RT-Q6H PRN 05/23/19 08/29/19 History [Duoneb 0.5 mg-3 mg/3 ml Soln] Mag Hydrox/Al Hydrox/Simeth 15 ml PO Q6HR PRN 05/23/19 08/29/19 History [Maalox] Magnesium Hydroxide [Milk of 30 ml PO DAILY PRN 05/23/19 08/29/19 History Magnesia Concentrate] Na Phos,M-B/Na Phos,Di-Ba [Fleet 1 applic RECTAL DAILY PRN 05/23/19 08/29/19 History Adult] Polyvinyl Alcohol/Povidone 1 drop BOTH EYES BID@0800,1700 05/23/19 08/29/19 History [Freshkote Eye Drop] Triamcinolone 0.1% Ointment 1 applic TOPICAL BID PRN 05/23/19 08/29/19 History [Kenalog 0.1% Ointment] ALPRAZolam [Xanax] 0.25 mg PO HS 08/29/19 08/29/19 History Acetaminophen [Tylenol 8 Hour] 650 mg PO Q4H PRN 08/29/19 08/29/19 History Doxepin HCl [SINEquan] 50 mg PO HS 08/29/19 08/29/19 History Ertapenem [INVanz] 500 mg IVPB DAILY@169908/29/19 08/29/19 History Furosemide [Lasix] 40 mg PO Q48H 08/29/19 08/29/19 History Gabapentin 600 mg PO BID@0800,169908/29/19 08/29/19 History HYDROcodone/APAP 5-325MG [[place] 1 tab PO Q8H PRN 08/29/19 08/29/19 History 5-325] Lactose-Reduced Food [Ensure Plus] 237 ml PO DAILY 08/29/19 08/29/19 History Menthol [Biofreeze] 1 applic TOPICAL BID@0800,169908/29/19 08/29/19 History Niacinamide 500 mg PO BID@0800,0 08/29/19 08/29/19 History Pepto-Bismol Tablet 1 tab PO BID PRN 08/29/19 08/29/19 History Rivastigmine Tartrate [Exelon] 3 mg PO BID 08/29/19 08/29/19 History Vitamins A and D [Vitamin A and D] 1 applic TOPICAL TID 08/29/19 08/29/19 History Warfarin [Coumadin] 2 mg PO SUMOTUTH@169908/29/19 08/29/19 History Warfarin [Coumadin] 3 mg PO WEFRSA@1700 08/29/19 08/29/19 History Allergies Allergy/AdvReac Type Severity Reaction Status Date / Time aspirin Allergy Unknown Verified 08/29/19 12:34 diphenhydramine Allergy Unknown Verified 08/29/19 12:34 latex Allergy Rash/Hives Verified 08/29/19 12:34 Penicillins Allergy Unknown Verified 08/29/19 12:34 lorazepam [From Ativan] AdvReac Hallucinati Verified 08/29/19 12:34 ons Physical Exam Vitals: Vital Signs Temp Pulse Pulse Resp BP BP Pulse Ox 08/30/19 15:24 98.2 F 99 18 97/64 93 L 08/30/19 11:04 98.1 F 95 18 109/60 99 08/30/19 08:35 106 H 08/30/19 08:21 106 H 08/30/19 08:00 97.6 F 115 H 18 110/67 100 08/30/19 04:20 97.8 F 111 H 16 108/66 100 08/29/19 23:24 97.8 F 106 H 16 111/60 100 Intake and Output 08/30/19 08/30/19 08/30/19 06:59 14:59 22:59 Intake Total 500.167 Output Total 100 300 300 Balance -100 200.167 -300 Intake: Intake, IV Titration 100.167 Amount Diltiazem 125 mg In 100.167 Sodium Chloride 0.9% 100 ml @ 5 MG/HR 5 mls/hr IV .Q24H [facility] Rx#:[id number] Oral 400 Output: Urine 100 250 100 Post Void Residual 50 Stool 200 Other: Voiding Method Incontinent Urinal Urinal Incontinent Incontinent # Voids 1 1 Weight 72.5 kg 72.5 kg GENERAL DESCRIPTION: Elderly male lying in bed, no distress. No tachypnea or accessory muscle of respiration use. HEENT: Shows Pallor , no scleral icterus. Oral mucous membrane is dry. NECK: Trachea central, no thyromegaly. LUNGS: Unlabored breathing. Clear to auscultation anteriorly. No wheeze or crackle. HEART: S1, S2, regular rate and rhythm. ABDOMEN: Soft, superficial ulceration to the lower middle abdominal wall with no slough tissue no surrounding redness or any foul-smelling drainage, wound is in close proximity to his colostomy , noguarding or rigidity EXTREMITIES: No edema of feet. SKIN: No rash, no masses palpable. NEUROLOGICAL: The patient is awake, alert, oriented x2, mood and affect normal. Results CBC & Chem 7: 08/31/19 06:35 08/31/19 06:36 Labs: Abnormal Lab Results - Last 24 Hours (Table) 08/30/19 08/30/19 08/30/19 Range/Units 00:06 03:54 06:16 WBC (3.8-10.6) k/uL RBC (4.30-5.90) m/uL Hgb (13.0-17.5) gm/dL Hct (39.0-53.0) % MCV (80.0-100.0) fL MCHC (31.0-37.0) g/dL RDW (11.5-15.5) % Neutrophils # (Manual) (1.3-7.7) k/uL Lymphocytes # (Manual) (1.0-4.8) k/uL Macrocytosis PT (9.0-12.0) sec INR (<1.2) Sodium (137-145) mmol/L Potassium 5.8 H (3.5-5.1) mmol/L Chloride 116 H (98-107) mmol/L Carbon Dioxide 14 L (22-30) mmol/L BUN 57 H (9-20) mg/dL Creatinine 2.45 H (0.66-1.25) mg/dL Glucose 103 H (74-99) mg/dL Troponin I 0.051 H* (0.000-0.034) ng/mL Total Protein 6.1 L (6.3-8.2) g/dL Albumin 2.8 L (3.5-5.0) g/dL HDL Cholesterol 63 H (40-60) mg/dL Urine Protein 2+ H (Negative) Urine Blood Large H (Negative) Ur Leukocyte Esterase Large H (Negative) Urine RBC >182 H (0-5) /hpf Urine WBC >182 H (0-5) /hpf Urine Mucus Occasional H (None) /hpf 08/30/19 08/30/19 08/30/19 Range/Units 06:16 06:16 14:23 WBC 13.0 H (3.8-10.6) k/uL RBC 3.40 L (4.30-5.90) m/uL Hgb 10.3 L (13.0-17.5) gm/dL Hct 35.8 L (39.0-53.0) % MCV 105.4 H (80.0-100.0) fL MCHC 28.7 L (31.0-37.0) g/dL RDW 17.6 H (11.5-15.5) % Neutrophils # (Manual) 11.83 H (1.3-7.7) k/uL Lymphocytes # (Manual) 0.39 L (1.0-4.8) k/uL Macrocytosis Marked A PT 26.4 H (9.0-12.0) sec INR 2.7 H (<1.2) Sodium 136 L (137-145) mmol/L Potassium 5.5 H (3.5-5.1) mmol/L Chloride 114 H (98-107) mmol/L Carbon Dioxide 14 L (22-30) mmol/L BUN (9-20) mg/dL Creatinine (0.66-1.25) mg/dL Glucose (74-99) mg/dL Troponin I (0.000-0.034) ng/mL Total Protein (6.3-8.2) g/dL Albumin (3.5-5.0) g/dL HDL Cholesterol (40-60) mg/dL Urine Protein (Negative) Urine Blood (Negative) Ur Leukocyte Esterase (Negative) Urine RBC (0-5) /hpf Urine WBC (0-5) /hpf Urine Mucus (None) /hpf 08/30/19 Range/Units 14:23 WBC 13.0 H (3.8-10.6) k/uL RBC 3.08 L (4.30-5.90) m/uL Hgb 9.3 L (13.0-17.5) gm/dL Hct 32.0 L (39.0-53.0) % MCV 104.0 H (80.0-100.0) fL MCHC 29.1 L (31.0-37.0) g/dL RDW 17.8 H (11.5-15.5) % Neutrophils # (Manual) (1.3-7.7) k/uL Lymphocytes # (Manual) (1.0-4.8) k/uL Macrocytosis PT (9.0-12.0) sec INR (<1.2) Sodium (137-145) mmol/L Potassium (3.5-5.1) mmol/L Chloride (98-107) mmol/L Carbon Dioxide (22-30) mmol/L BUN (9-20) mg/dL Creatinine (0.66-1.25) mg/dL Glucose (74-99) mg/dL Troponin I (0.000-0.034) ng/mL Total Protein (6.3-8.2) g/dL Albumin (3.5-5.0) g/dL HDL Cholesterol (40-60) mg/dL Urine Protein (Negative) Urine Blood (Negative) Ur Leukocyte Esterase (Negative) Urine RBC (0-5) /hpf Urine WBC (0-5) /hpf Urine Mucus (None) /hpf Assessment and Plan Assessment: 1-patient with a positive culture from an abdominal wound, the wound itself does not look inflamed with no cellulitis and more likely representing colonization as the wound is in close proximity to his colostomy and high risk of getting contaminated from it. 2-patient with a positive UA elevated white count with possible component of urinary tract infection not entirely excluded though the patient is not a good historian (1) UTI (urinary tract infection) Current Visit: Yes Status: Acute Code(s): N39.0 - URINARY TRACT INFECTION, SITE NOT SPECIFIED SNOMED Code(s): 55432306 (2) Nonhealing skin ulcer, limited to breakdown of skin Current Visit: Yes Status: Acute Code(s): L98.491 - NON-PRS CHRONIC ULCER SKIN/ SITES LIMITED TO BRKDWN SKIN SNOMED Code(s): 62888629 Plan: 1-local wound care to the abdominal wound with dry Aquacel silver dressing and keep it protected from the colostomy 2-Invanz to continue while waiting for urine culture to finalize We will follow on clinical condition and cultures to further adjust medication if needed Thank you for this consultation we will follow the patient along with you Time with Patient: Greater than 30
--- NOTE | 2019-08-31 12:51 | P.PN ---
Subjective This is Kelley Proctor PA-C dictating a progress note on this patient The patient was interviewed and examined by me Case discussed with Dr. Davis and he agrees with the plan of care HPI/interval history Patient is an 83-year-old male with a history of hypertension, paroxysmal atrial fibrillation, SVT, DVT, diabetes, neuropathy, colostomy, CK D, anemia who was admitted for treatment of A. fib with RVR. He has converted back to sinus r hythm. Cardizem drip was discontinued and he is on metoprolol 50 mg twice daily. Patient seen and examined resting in bed. States he is short of breath on exertion. Reports some dizziness and a presyncopal episode yesterday. He has had hypotension. EXAMINATION Temperature 98.1F, pulse in the 80s, respirations 18, blood pressure 89/59, oxygen saturation 98% on 2 L nasal cannula Patient seen and examined resting in bed, appears comfortable, not in any acute distress Lungs are diminished at the bases, lung exam difficult as the patient was not able to sit up Heart is regular, no audible murmurs No elevated JVD Trace lower extremity edema REVIEW OF LABS, ECG WBC 12.3, hemoglobin 8.3, platelets 179, INR 3, potassium 5.3, BUN 60, creatinine 2.44 Echocardiogram shows EF 55-60%, moderate concentric LVH IMPRESSION / ASSESSMENT: #1 paroxysmal atrial fibrillation with RVR, currently in sinus rhythm, anticoagulation is on hold due to hematuria #2 abnormal troponin likely secondary to combination of hypoxia and A. fib with RVR, no significant rise and fall pattern #3 ADA on CK D #4 acute on chronic congestive heart failure, diastolic, recent echocardiogram showing EF 55-60% with moderate concentric LVH #5 history of colostomy #6 COPD #7 history of DVT #8 history of SVT #9 dementia PLAN: Reduce the dose of metoprolol to 25 mg twice a day Continue diuresis Continue monitoring for hematuria and INR Objective - Vital Signs Vital signs: Vital Signs Temp 98.1 F 08/31/19 11:53 Pulse 72 08/31/19 11:53 Resp 18 08/31/19 11:53 BP 89/59 08/31/19 11:53 Pulse Ox 98 08/31/19 11:53 Intake & Output 08/30/19 08/31/19 08/31/19 18:59 06:59 18:59 Intake Total 500.167 Output Total 550 150 100 Balance -49.833 -150 -100 Weight 72.5 kg 73 kg Intake: Intake, IV Titration 100.167 Amount Diltiazem 125 mg In 100.167 Sodium Chloride 0.9% 100 ml @ 5 MG/HR 5 mls/hr IV .Q24H [facility] Rx#:[id number] Oral 400 Output: Urine 300 50 100 Post Void Residual 50 Stool 200 100 Other: Voiding Method Urinal Urinal Urinal Incontinent Incontinent Incontinent # Voids 1 - Labs CBC & Chem 7: 08/31/19 06:35 08/31/19 06:36 Labs: Abnormal Lab Results - Last 24 Hours (Table) 08/30/19 08/30/19 08/31/19 Range/Units 14:23 14:23 06:35 WBC 13.0 H (3.8-10.6) k/uL RBC 3.08 L (4.30-5.90) m/uL Hgb 9.3 L (13.0-17.5) gm/dL Hct 32.0 L (39.0-53.0) % MCV 104.0 H (80.0-100.0) fL MCHC 29.1 L (31.0-37.0) g/dL RDW 17.8 H (11.5-15.5) % PT 28.8 H (9.0-12.0) sec INR 3.0 H (<1.2) Sodium 136 L (137-145) mmol/L Potassium 5.5 H (3.5-5.1) mmol/L Chloride 114 H (98-107) mmol/L Carbon Dioxide 14 L (22-30) mmol/L BUN (9-20) mg/dL Creatinine (0.66-1.25) mg/dL Glucose (74-99) mg/dL 08/31/19 08/31/19 Range/Units 06:35 06:36 WBC 12.3 H (3.8-10.6) k/uL RBC 2.77 L (4.30-5.90) m/uL Hgb 8.3 L (13.0-17.5) gm/dL Hct 28.5 L (39.0-53.0) % MCV 102.9 H (80.0-100.0) fL MCHC 29.3 L (31.0-37.0) g/dL RDW 18.1 H (11.5-15.5) % PT (9.0-12.0) sec INR (<1.2) Sodium 136 L (137-145) mmol/L Potassium 5.3 H (3.5-5.1) mmol/L Chloride 111 H (98-107) mmol/L Carbon Dioxide 20 L (22-30) mmol/L BUN 60 H (9-20) mg/dL Creatinine 2.44 H (0.66-1.25) mg/dL Glucose 105 H (74-99) mg/dL Microbiology - Last 24 Hours (Table) 08/30/19 15:10 Urine Culture - Preliminary Urine,Voided
--- NOTE | 2019-08-31 13:41 | P.PN ---
Subjective Progress Note Date: 08/31/19 Principal diagnosis: This is a 83-year-old male acute kidney injury secondary to low blood pressure atrial fibrillation. Blood pressure in the 80s to 90s. He is on Lasix 40 and 2 0 on alternate days. Urine output is not well documented Currently his reformed a week. Denies any shortness of breath not on oxygen. Somewhat sleepy Objective - Vital Signs Vital signs: Vital Signs Temp 98.1 F 08/31/19 11:53 Pulse 72 08/31/19 11:53 Resp 18 08/31/19 11:53 BP 89/59 08/31/19 11:53 Pulse Ox 98 08/31/19 11:53 Intake & Output 08/30/19 08/31/19 08/31/19 18:59 06:59 18:59 Intake Total 500.167 Output Total 550 150 100 Balance -49.833 -150 -100 Weight 72.5 kg 73 kg Intake: Intake, IV Titration 100.167 Amount Diltiazem 125 mg In 100.167 Sodium Chloride 0.9% 100 ml @ 5 MG/HR 5 mls/hr IV .Q24H [facility] Rx#:[id number] Oral 400 Output: Urine 300 50 100 Post Void Residual 50 Stool 200 100 Other: Voiding Method Urinal Urinal Urinal Incontinent Incontinent Incontinent # Voids 1 Examination sleepy but arousable. HEENT exam no JVP neck is supple no facial asymmetry Lungs are significant for diminished breath sounds because of poor inspiratory effort but no adventitious sounds heard Heart sounds are unremarkable no murmur rub gallop she is in atrial fibrillation Abdomen soft nontender. Has an ostomy bag Extremities no edema Neurologically sleepy but arousable. - Labs CBC & Chem 7: 08/31/19 06:35 08/31/19 06:36 Labs: Abnormal Lab Results - Last 24 Hours (Table) 08/30/19 08/30/19 08/31/19 Range/Units 14:23 14:23 06:35 WBC 13.0 H (3.8-10.6) k/uL RBC 3.08 L (4.30-5.90) m/uL Hgb 9.3 L (13.0-17.5) gm/dL Hct 32.0 L (39.0-53.0) % MCV 104.0 H (80.0-100.0) fL MCHC 29.1 L (31.0-37.0) g/dL RDW 17.8 H (11.5-15.5) % PT 28.8 H (9.0-12.0) sec INR 3.0 H (<1.2) Sodium 136 L (137-145) mmol/L Potassium 5.5 H (3.5-5.1) mmol/L Chloride 114 H (98-107) mmol/L Carbon Dioxide 14 L (22-30) mmol/L BUN (9-20) mg/dL Creatinine (0.66-1.25) mg/dL Glucose (74-99) mg/dL 08/31/19 08/31/19 Range/Units 06:35 06:36 WBC 12.3 H (3.8-10.6) k/uL RBC 2.77 L (4.30-5.90) m/uL Hgb 8.3 L (13.0-17.5) gm/dL Hct 28.5 L (39.0-53.0) % MCV 102.9 H (80.0-100.0) fL MCHC 29.3 L (31.0-37.0) g/dL RDW 18.1 H (11.5-15.5) % PT (9.0-12.0) sec INR (<1.2) Sodium 136 L (137-145) mmol/L Potassium 5.3 H (3.5-5.1) mmol/L Chloride 111 H (98-107) mmol/L Carbon Dioxide 20 L (22-30) mmol/L BUN 60 H (9-20) mg/dL Creatinine 2.44 H (0.66-1.25) mg/dL Glucose 105 H (74-99) mg/dL Microbiology - Last 24 Hours (Table) 08/30/19 15:10 Urine Culture - Preliminary Urine,Voided Assessment and Plan Assessment: Impression 1. Acute kidney injury from poor renal perfusion from low blood pressure and atrial fibrillation. Ejection fraction 55-60%significant valvular dysfunction right ventricular systolic pressure is 35. TSH is been normal cortisols not available 2. Significant anabolic acidosis with bicarb of 14 and anion gap of 7 for acute kidney injury and as well as from ostomy drainage. Improved with IV bicarbonate drip bicarb is 20 3. Hyperkalemia with potassium 5.8. Secondary acute kidney injury as well as from spironolactone . There is no ultrasound evidence for hydronephrosis 10.3 cm and 10 cm right and left kidney. Previously urine immune electrophoresis was unremarkable on 05/11/2014. At the time he had a proteinuria with protein to creatinine ratio of 165/92. Resolved, potassium 5.3 Recommendation 1. Discontinue sodium bicarbonate IV and start by mouth 650 4 times a day 2. Reduce Lasix to 20 daily 3 monitor labs. 4. Orthostatic changes
[2019-08-31] MEDS: SUCRALFATE 1 GM TAB PO SCH (17:27)
[2019-08-31] MEDS: DOXYCYCLINE 100 MG CAP PO SCH (17:27)
[2019-08-31] MEDS: DEXTROSE 5% IN WATER 1,000 ML with SODIUM BICARB (1 MEQ/ML) 150 ML IV SCH (17:28)
[2019-08-31] MEDS: ERTAPENEM 0.5 GM in SODIUM CHLORIDE 0.9% 50 ML IVPB SCH (17:34)
[2019-08-31] MEDS: ALPRAZolam 0.25 MG TAB PO SCH (21:08)
[2019-08-31] MEDS: DOXEPIN 25 MG CAP PO SCH (21:08)
[2019-08-31] MEDS: HYDROcodone/APAP 5-325MG 1 EACH TAB PO SCH (21:09)
[2019-08-31] MEDS: METOPROLOL SUCCINATE (ER) 25 MG TAB.ER.24H PO SCH (21:10)
--- NOTE | 2019-09-01 00:15 | PN ---
PROGRESS NOTE DATE OF SERVICE: 08/31/2019 REASON FOR FOLLOWUP: 1. Urinary tract infection. 2. Abdominal wound. INTERVAL HISTORY: The patient is currently afebrile. Patient is breathing comfortably. The patient denies having any chest pain or shortness of breath or cough. No abdominal pain. No diarrhea. PHYSICAL EXAMINATION: Blood pressure 102/63 with a pulse of 72, temperature is 97.8, he is 99% on 2 L nasal cannula. General description is an elderly male lying in bed in no distress. Respiratory system: Unlabored breathing, clear to auscultation anteriorly. Heart S1, S2. Regular rate and rhythm. Abdomen soft, no tenderness. LABS: Hemoglobin 8.1, white count 12.3 with a creatinine 2.44. Urine culture so far pending. DIAGNOSTIC IMPRESSION AND PLAN: 1. Patient admitted to the hospital with generalized weakness in this patient who did have abdominal wound disclosed to his colostomy with positive cultures more likely representing contamination of the wound rather than cellulitis. 2. Urinary tract infection covered with Invanz while waiting for the culture to finalize. Continue supportive care. MMODL / IJN: [id number] /
[2019-09-01 06:33] LABS: INR 2.2 (<1.2); Prothrombin Time 21.4 sec (9.0-12.0)
[2019-09-01 06:37] LABS: Anisocytosis Slight; HCT 30.1 % (39.0-53.0); HGB 8.5 gm/dL (13.0-17.5); Hypochromasia Marked; MCH 28.8 pg (25.0-35.0); MCHC 28.3 g/dL (31.0-37.0); MCV 101.6 fL (80.0-100.0); Macrocytosis Moderate; Mean Platelet Volume 6.9; Platelet Count 172 k/uL (150-450); RBC 2.96 m/uL (4.30-5.90); RDW 18.3 % (11.5-15.5); WBC 13.5 k/uL (3.8-10.6)
[2019-09-01] MEDS: METOPROLOL SUCCINATE (ER) 25 MG TAB.ER.24H PO SCH ×2 (08:06→20:24)
[2019-09-01] MEDS: HYDROcodone/APAP 5-325MG 1 EACH TAB PO PRN (08:06)
[2019-09-01] MEDS: GABAPENTIN 300 MG CAP PO SCH ×2 (08:06→16:26)
[2019-09-01] MEDS: DOXYCYCLINE 100 MG CAP PO SCH ×2 (08:06→16:27)
[2019-09-01] MEDS: MULTIVITAMINS, THERA 1 EACH TAB PO SCH (08:06)
[2019-09-01] MEDS: TAMSULOSIN 0.4 MG CAP.ER.24H PO SCH ×2 (08:07→20:24)
[2019-09-01] MEDS: ASCORBIC ACID 500 MG TAB PO SCH (08:07)
[2019-09-01] MEDS: CHOLECALCIFEROL 1,000 UNIT TAB PO SCH (08:07)
[2019-09-01] MEDS: DONEPEZIL 10 MG TAB PO SCH (08:07)
[2019-09-01] MEDS: FERROUS SULFATE 325 MG TAB PO SCH (08:07)
[2019-09-01] MEDS: FUROSEMIDE 20 MG TAB PO SCH (08:07)
[2019-09-01] MEDS: FAMOTIDINE 20 MG TAB PO SCH (08:07)
[2019-09-01] MEDS: PETROLATUM, WHITE OINT 50 GM TUBE TOPICAL SCH ×3 (08:08→23:19)
[2019-09-01] MEDS: ARTIFICIAL TEARS-HYPROMELLOSE DROPS 15 ML BTL BOTH EYES SCH ×2 (08:08→16:19)
[2019-09-01] MEDS: METHYL SALICYLATE/MENTHOL CREAM 5 OZ TOPICAL SCH ×2 (08:08→16:27)
--- NOTE | 2019-09-01 09:50 | P.PN ---
Subjective Progress Note Date: 09/01/19 83-year-old male one of my office patient who has been in [facility] for the last 2 years was known to have history of coronary artery disease, A. 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 I received a phone call from [facility] with Mr. Damico the nurse complaining of that he is not feeling well and had significant rapid pulse running over 100 2250 bpm with slightly low blood pressure. Not been able to stabilize him in [facility] ended up being transfer to [facility] emergency department where was seen and evaluated he was running in A. fib with rapid ventricular response was not able to control his symptom without IV Cardizem patient is already on anticoagulation his INR was tested and found to be at 2.5. Consult cardiology Patient on Cardizem drip and admit patient to the hospital for the above problem. 08/29: Patient is seen today in the cardiac stepdown unit. secured entrance monitor remain s atrial fibrillation with moderately controlled rate. Heart rate is running 95-115. Blood pressure 109/60, pulse ox 99% on 2 L nasal cannula. Patient is reaching 500 on incentive spirometry. Patient has been evaluated by cardiology and Cardizem drip discontinued, metoprolol XL increased to 50 mg twice daily. We will plan to discontinue Coumadin altogether and start the patient on eliquis starting tomorrow. Patient does have some dark red hematuria for which we will reevaluate in the morning. Start eliquis. Patient was ordered for 1 dose of IV Lasix. Echocardiogram reveals EF of 55-60% with moderate concentric left ventricular hypertrophy, trace mitral regurgitation, trace tricuspid regurgitation. Consult added for Dr. Sloan and she has recommended IV bicarb, discontinue Aldactone, discontinue milk of magnesia and sodium biphosphate enema. Post void residual to be checked. Renal ultrasound reveals suboptimal study without hydronephrosis seen bilaterally. Findings consistent with chronic medical renal disease. Consult with Dr. Alfred added for ESBL abdominal wound recently treated at [facility], chronic wound to the right lower extremity which we he is on chronic doxycycline and possibly the ertapenem could have caused tachycardia. Hemoglobin is 10.3 and will be re checked this afternoon and in the morning. Hemoglobin 10.3 is close to patient's baseline. Patient has been seen by the wound care team and ordered zinc barrier cream to the abdomen and also to the coccyx area along with a foam sacral dressing to be changed daily. 08/30: Patient denies any new complaints. He states he is feeling well today. He denies having any chest pain or palpitations. secured entrance monitor is a sinus rhythm with first-degree block with heart rate running in the 80s, he has been afebrile, blood pressure 96/61, pulse ox 99% on 2 L nasal cannula. Repeat blood work reveals WBC 12.3, hemoglobin 8.3, platelet count 179. INR is 3.0 and eliquis will be placed on hold. Sodium 136, potassium 5.3, chloride 111, CO2 20, BUN 16 creatinine 2.44. Blood sugar 105. Urine culture is in progress. Consult Dr. Alfred is pending. Anticipate discharge back to [facility] on Monday. 08/31: Patient denies any new complaints. Patient continues to be followed by nephrology and is on Lasix 20 mg oral daily and bicarb drip. Patient is known to have significant ecchymosis to the left back and flank and left arm. There is known known falls at the [facility]. In no injuries while in the hospital. His INR today is at 2.2 and eliquis will remain on hold and to ecchymosis has cleared. There's been no further hematuria. Hemoglobin is 8.5, WBC 13.5, BUN 63 and creatinine 2.39, CO2 is 24. Urine culture was finalized with no growth. Patient is followed by Dr. Alfred and patient is currently on Invanz. Patient's heart rate has been controlled in the 90s, blood pressure 123/66, patient has been afebrile. secured entrance monitor is sinus rhythm. Incentive spirometry 500 ML's. Plan for discharge back to [facility] tomorrow. Objective - Vital Signs Vital signs: Vital Signs Temp 98.1 F 09/01/19 08:00 Pulse 95 09/01/19 08:00 Resp 18 09/01/19 08:00 BP 123/67 09/01/19 08:00 Pulse Ox 97 09/01/19 08:00 Intake & Output 08/31/19 09/01/19 09/01/19 18:59 06:59 18:59 Output Total 100 Balance -100 Weight 85 kg Output: Urine 100 Other: Voiding Method Urinal Urinal Urinal Incontinent Incontinent Incontinent # Voids 2 2 - Exam Review of Systems CONSTITUTIONAL: Denies acute respiratory distress. Denies fevers, denies chills. EYES: No icterus sclerae, no conjunctivitis. EARS, NOSE, MOUTH, THROAT, and FACE: No sore throat, lymphadenopathy, carotid bruits or deformity. RESPIRATORY: Denies shortness of breath no cough wheezes. CARDIOVASCULAR: Denies PND orthopnea and edema no chest pain no shortness of breath denies dyspnea. GASTROINTESTINAL: No Abd pain, Nausea or vomiting, no Diarrhea or constipation, No GI Bleed, no distention or masses. Positive ostomy with no diarrhea. GENITOURINARY: Negative for Hematuria or UTI, no kidney stones. INTEGUMENT/BREAST: Negative for any muscular injury with mild osteoarthritis. Reports ecchymosis.. HEMATOLOGIC/LYMPHATIC: Negative for bleed or purpura. MUSCULOSKELTAL: chronic one and area and drainage from prosthetic knee in the right side. NEURLOGICAL: No LOC, Sz or syncope, blurred vision dizziness or abnormality.. BEHAVIORAL/PSYCH: Negative. ENDOCRINE: Negative. Physical examination General Appearance: Alert, cooperative, no distress, appears stated age. Patient is sitting up in bed and appears to be comfortable. Neck HEENT: Supple, no lymphadenopathy, no thyroid enlargement, no carotid b ruits. Lungs: Decreased breath some bilateral rhonchi no crackles or wheezes. Chest Wall: Decrease expansion with deep inspiration no tenderness and no deformity was found on exam, no costochondral pain or discomfort. Heart: Irregular rate and rhythm, S1, S2 positive, 3 positive JVD with minimal tachycardia.. Back: Symmetric, no curvature, ROM normal, no CVA tenderness. Abdomen: Soft, non-tender, bowel sounds active all four quadrants, no masses, ostomy stoma looks good with no abnormality or hernia. Has a small area in the mid abdominal region with slight drainage which apparently was ESBL. Extremities: Significant edema bilaterally right knee still have significant scar tissue with prostatic area with the spot on the incision looks healing with slight drainage only. Pulses: Decreased bilaterally. Skin: Skin color, texture, tugor normal, no rashes or lesions. Neurologic: Alert oriented x3 cranial nerves II through XII intact, no motor deficit, no abnormal balance or gait. - Labs CBC & Chem 7: 09/01/19 05:50 09/01/19 05:50 Labs: Abnormal Lab Results - Last 24 Hours (Table) 08/31/19 09/01/19 09/01/19 Range/Units 06:36 05:50 05:50 WBC 13.5 H (3.8-10.6) k/uL RBC 2.96 L (4.30-5.90) m/uL Hgb 8.5 L (13.0-17.5) gm/dL Hct 30.1 L (39.0-53.0) % MCV 101.6 H (80.0-100.0) fL MCHC 28.3 L (31.0-37.0) g/dL RDW 18.3 H (11.5-15.5) % PT (9.0-12.0) sec INR (<1.2) Sodium 136 L (137-145) mmol/L Potassium 5.3 H (3.5-5.1) mmol/L Chloride 111 H 109 H (98-107) mmol/L Carbon Dioxide 20 L (22-30) mmol/L BUN 60 H 63 H (9-20) mg/dL Creatinine 2.44 H 2.39 H (0.66-1.25) mg/dL Glucose 105 H (74-99) mg/dL 09/01/19 Range/Units 05:50 WBC (3.8-10.6) k/uL RBC (4.30-5.90) m/uL Hgb (13.0-17.5) gm/dL Hct (39.0-53.0) % MCV (80.0-100.0) fL MCHC (31.0-37.0) g/dL RDW (11.5-15.5) % PT 21.4 H (9.0-12.0) sec INR 2.2 H (<1.2) Sodium (137-145) mmol/L Potassium (3.5-5.1) mmol/L Chloride (98-107) mmol/L Carbon Dioxide (22-30) mmol/L BUN (9-20) mg/dL Creatinine (0.66-1.25) mg/dL Glucose (74-99) mg/dL Microbiology - Last 24 Hours (Table) 08/30/19 15:10 Urine Culture - Final Urine,Voided Assessment and Plan Plan: 1 paroxysmal atrial fibrillation with rapid ventricular response. Continue metoprolol XL 25 mg daily, discontinue Coumadin and hold eliquis while monitoring INR, significant ecchymosis and hematuria. Cardiology consult appre ciated. 2 history of coronary artery disease: Patient has been seeing cardiology regular basis and testing are up-to-date. 3 elevated troponin secondary to hypoxia and A. fib with RVR. Cardiology c onsult appreciated. 4 stage IV chronic kidney disease secondary to diabetic nephropathy and nephros clerosis and acute kidney injury with hyperkalemia and non-gap metabolic acidosis. Consult with nephrology. Bicarb drip most likely discontinued today. 5 acute on chronic diastolic heart failure. Continue Lasix 20 mg oral daily, and metoprolol. 6 history of ESBL of the stomach wall. Wound Center consult appreciated. 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 Consult with Dr. Alfred to evaluate. 8 chronic history of diabetic neuropathy: Has been on gabapentin total of 900 mg twice a day. 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 10 history of BPH: Has been on tamsulosin 0.4 mg twice a day with good result so far. 11 history of dementia: Alzheimer type, has been on Aricept and doxepin. 12 reactive airway with mild COPD: Continue patient on albuterol/ipratropium. 13 chronic pain syndrome: Has been on hydrocodone on as needed basis. 14 severe gastritis and recurrent bleed, patient has been on Carafate along with pantoprazole. Was complaining of mild dysphagia and was post to see Dr. Garcia for EGD and possible need diet patient. 15 anticoagulation management: Has been on warfarin which up till now, plan to eventually transition to eliquis. 16. Hematuria. Resolved. 17. Chronic stage II decubitus ulcer to the coccyx region, abdominal ulceration proximal to the colectomy, both present on admission. Wound team consult appreciated. Zinc barrier cream to be utilized. 18. COVID-19 infection not present. 19. Pyuria. Urine culture to be obtained. Consult with Dr. Alfred appreciated. Patient is on ertapenem. 20. Anemia of chronic kidney disease. Monitor for bleeding. 21. DVT prophylaxis: Hold anticoagulation. CODE STATUS: Full code. Discharge plan: Return to [facility] on Monday Impression and plan of care have been directed as dictated by the signing physician. Lyndsay Gimenez nurse practitioner acting as scribe for signing physician.
[2019-09-01 11:35] LABS: Glucose,Whole Blood 133 mg/dL (75-99)
[2019-09-01] MEDS: IPRATROPIUM-ALBUTEROL 3 ML NEB INHALATION PRN (11:48)
--- NOTE | 2019-09-01 11:54 | P.PN ---
Subjective Progress Note Date: 09/01/19 Principal diagnosis: This is a 83-year-old male acute kidney injury secondary to low blood pressure and atrial fibrillation. His Blood pressure in the 80s to 90s occasionally but has come up somewhat in the 100 range. He is on Lasix 40 and 20 on alternate days. Urine output is not well documented Workup included a serum cortisol level is 20. Echocardiogram shows ejection fr action is 55-60%, and no significant valvular abnormalities Currently he remains weak. Other than this Denies any shortness of breath not on oxygen. Somewhat sleepy Is known with history of DVT atrial fibrillation diabetes and depression and severe neuropathy, he also has a colostomy for perforated bowel from diverticulitis. Objective - Vital Signs Vital signs: Vital Signs Temp 98.1 F 09/01/19 08:00 Pulse 95 09/01/19 08:00 Resp 18 09/01/19 11:46 BP 123/67 09/01/19 08:00 Pulse Ox 97 09/01/19 08:00 Intake & Output 08/31/19 09/01/19 09/01/19 18:59 06:59 18:59 Output Total 100 Balance -100 Weight 85 kg Output: Urine 100 Other: Voiding Method Urinal Urinal Urinal Incontinent Incontinent Incontinent # Voids 2 2 Exertion is sleepy but arousable. HEENT exam no JVP neck is supple no facial asymmetry Lungs are clear to auscultation good air entry bilaterally Heart sounds unremarkable for any murmur rub gallop Abdomen soft nontender Extremity exam was trace edema he has ostomy bag on his abdomen Neurologically awake alert but weak - Labs CBC & Chem 7: 09/01/19 05:50 09/01/19 05:50 Labs: Abnormal Lab Results - Last 24 Hours (Table) 09/01/19 09/01/19 09/01/19 Range/Units 05:50 05:50 05:50 WBC 13.5 H (3.8-10.6) k/uL RBC 2.96 L (4.30-5.90) m/uL Hgb 8.5 L (13.0-17.5) gm/dL Hct 30.1 L (39.0-53.0) % MCV 101.6 H (80.0-100.0) fL MCHC 28.3 L (31.0-37.0) g/dL RDW 18.3 H (11.5-15.5) % PT 21.4 H (9.0-12.0) sec INR 2.2 H (<1.2) Chloride 109 H (98-107) mmol/L BUN 63 H (9-20) mg/dL Creatinine 2.39 H (0.66-1.25) mg/dL POC Glucose (mg/dL) (75-99) mg/dL 09/01/19 Range/Units 11:25 WBC (3.8-10.6) k/uL RBC (4.30-5.90) m/uL Hgb (13.0-17.5) gm/dL Hct (39.0-53.0) % MCV (80.0-100.0) fL MCHC (31.0-37.0) g/dL RDW (11.5-15.5) % PT (9.0-12.0) sec INR (<1.2) Chloride (98-107) mmol/L BUN (9-20) mg/dL Creatinine (0.66-1.25) mg/dL POC Glucose (mg/dL) 133 H (75-99) mg/dL Microbiology - Last 24 Hours (Table) 08/30/19 15:10 Urine Culture - Final Urine,Voided Assessment and Plan Assessment: Impression 1. Acute kidney injury from poor renal perfusion from low blood pressure and atrial fibrillation. Ejection fraction 55-60% and no significant valvular dysfunction right ventricular systolic pressure is 35. TSH is been normal, cortisol level is normal. Creatinine is slightly down from a peak of 2.5-2.39 2. Significant metabolic acidosis with bicarb of 14 and anion gap of 7 for acute kidney injury and as well as from ostomy drainage. Improved with IV bicarbonate drip bicarb and bicarb, discontinued on 08/31/2019 bicarbonate is now is up to 24. He was changed to oral bicarb yesterday 3. Hyperkalemia with potassium 5.8. Secondary acute kidney injury as well as from spironolactone . There is no ultrasound evidence for hydronephrosis 10.3 cm and 10 cm right and left kidney. Previously urine immune electrophoresis was unremarkable on 05/11/2014. At the time he had a proteinuria with protein to creatinine ratio of 165/92. Resolved, potassium 5. Recommendation 1. Continue sodium bicarbonate by mouth and watch bicarbonate as he has ostomy bag which might induce non-gap acidosis 2. Continue asix to 20 daily 3. monitor labs.
--- NOTE | 2019-09-01 12:55 | P.PN ---
Subjective This is Kelley Proctor PA-C dictating a progress note on this patient The patient was interviewed and examined by me as well as by Dr. Davis Case discussed with Dr. Davis and he agrees with the plan of care HPI/interval history Patient is an 83-year-old male with a history of hypertension, paroxysmal atrial fibrillation, SVT, DVT, diabetes, neuropathy, colostomy, CK D, anemia who was admitted for treatment of A. fib with RVR. He has converted back to sinus rhythm. yesterday we reduced his dose of metoprolol due to symptomatic hypo tension. Patient seen and examined resting in bed. He feels better compared to yesterday, has more energy. He denies any shortness of breath or dizziness but he has not gotten up today. His anticoagulation has been on hold due to hematuria, no further hematuria per the nurse. EXAMINATION Patient is afebrile, pulse in the 80s, respirations 18, blood pressure 109/59, oxygen saturation 98% on room air Patient seen and examined resting in bed, appears comfortable, not in any acute distress Lungs are diminished bilaterally Heart is regular, soft systolic murmur No elevated JVD Trace lower extremity edema REVIEW OF LABS, ECG WBC 13.5, hemoglobin 8.5, platelets 172, potassium 5.0, BUN 63, creatinine 2.39 Echocardiogram shows EF 55-60%, moderate concentric LVH IMPRESSION / ASSESSMENT: #1 paroxysmal atrial fibrillation with RVR, currently in sinus rhythm, anticoagulation is on hold due to hematuria and ecchymosis #2 abnormal troponin likely secondary to combination of hypoxia and A. fib with RVR, no significant rise and fall pattern #3 ADA on CK D, cr slighly improved, nephro following #4 acute on chronic congestive heart failure, diastolic, recent echocardiogram showing EF 55-60% with moderate concentric LVH #5 history of colostomy #6 COPD #7 history of DVT #8 history of SVT #9 dementia PLAN: Decision regarding resuming oral anticoagulation per primary care team Continue metoprolol 25 mg twice daily Continue Lasix Monitor for hypotension Monitor BMP Objective - Vital Signs Vital signs: Vital Signs Temp 97.9 F 09/01/19 12:00 Pulse 88 09/01/19 12:00 Resp 18 09/01/19 12:00 BP 109/59 09/01/19 12:00 Pulse Ox 98 09/01/19 12:00 Intake & Output 08/31/19 09/01/19 09/01/19 18:59 06:59 18:59 Output Total 100 Balance -100 Weight 85 kg Output: Urine 100 Other: Voiding Method Urinal Urinal Urinal Incontinent Incontinent Incontinent # Voids 2 2 - Labs CBC & Chem 7: 09/01/19 05:50 09/01/19 05:50 Labs: Abnormal Lab Results - Last 24 Hours (Table) 09/01/19 09/01/19 09/01/19 Range/Units 05:50 05:50 05:50 WBC 13.5 H (3.8-10.6) k/uL RBC 2.96 L (4.30-5.90) m/uL Hgb 8.5 L (13.0-17.5) gm/dL Hct 30.1 L (39.0-53.0) % MCV 101.6 H (80.0-100.0) fL MCHC 28.3 L (31.0-37.0) g/dL RDW 18.3 H (11.5-15.5) % PT 21.4 H (9.0-12.0) sec INR 2.2 H (<1.2) Chloride 109 H (98-107) mmol/L BUN 63 H (9-20) mg/dL Creatinine 2.39 H (0.66-1.25) mg/dL POC Glucose (mg/dL) (75-99) mg/dL 09/01/19 Range/Units 11:25 WBC (3.8-10.6) k/uL RBC (4.30-5.90) m/uL Hgb (13.0-17.5) gm/dL Hct (39.0-53.0) % MCV (80.0-100.0) fL MCHC (31.0-37.0) g/dL RDW (11.5-15.5) % PT (9.0-12.0) sec INR (<1.2) Chloride (98-107) mmol/L BUN (9-20) mg/dL Creatinine (0.66-1.25) mg/dL POC Glucose (mg/dL) 133 H (75-99) mg/dL Microbiology - Last 24 Hours (Table) 08/30/19 15:10 Urine Culture - Final Urine,Voided
[2019-09-01] MEDS: DEXTROSE 5% IN WATER 1,000 ML with SODIUM BICARB (1 MEQ/ML) 150 ML IV SCH (14:54)
--- NOTE | 2019-09-01 16:09 | PN ---
PROGRESS NOTE DATE OF SERVICE: 09/01/2019 REASON FOR FOLLOWUP: 1. Abdominal wound with positive culture. 2. UTI. INTERVAL HISTORY: The patient is currently afebrile. Patient is feeling better. Breathing comfortably. Denies having any chest pain, shortness of breath, no abdominal pain or any diarrhea. PHYSICAL EXAMINATION: Blood pressure 109/69 with a pulse of 88. Temperature is 97.9. He is 98% on room air. General description: The patient is an elderly male lying in bed in no distress. Respiratory system: Unlabored breathing, clear to auscultation anteriorly. Heart S1, S2. Regular rate and rhythm. Abdomen soft, no tenderness. LABS: Hemoglobin 8.5, white count 13.5, BUN of 63, creatinine 2.39. Urine is so far negative. DIAGNOSTIC IMPRESSION AND PLAN: 1. Patient with abdominal wound with positive cultures. However, no significant changes have been noticed at the wound site with a question of possible contamination of that area. Local wound care to continue with dry Aquacel dressing. 2. The patient with concern for urinary tract infection though urine culture has been negative so far. Antibiotic may be discontinued. 3. Monitor clinical course closely. MMODL / IJN: [id number] /
[2019-09-01] MEDS: SUCRALFATE 1 GM TAB PO SCH (16:26)
[2019-09-01] MEDS: ERTAPENEM 0.5 GM in SODIUM CHLORIDE 0.9% 50 ML IVPB SCH (16:26)
[2019-09-01] MEDS: HYDROcodone/APAP 5-325MG 1 EACH TAB PO SCH (20:24)
[2019-09-01] MEDS: ALPRAZolam 0.25 MG TAB PO SCH (20:24)
[2019-09-01] MEDS: DOXEPIN 25 MG CAP PO SCH (20:24)
[2019-09-01 20:56] LABS: Glucose,Whole Blood 148 mg/dL (75-99)
[2019-09-02 06:22] LABS: Glucose,Whole Blood 121 mg/dL (75-99)
[2019-09-02 07:37] LABS: INR 1.7 (<1.2); Prothrombin Time 16.2 sec (9.0-12.0)
[2019-09-02] MEDS: FERROUS SULFATE 325 MG TAB PO SCH (08:08)
[2019-09-02] MEDS: METHYL SALICYLATE/MENTHOL CREAM 5 OZ TOPICAL SCH ×2 (08:08→17:43)
[2019-09-02] MEDS: DONEPEZIL 10 MG TAB PO SCH (08:08)
[2019-09-02] MEDS: GABAPENTIN 300 MG CAP PO SCH ×2 (08:08→17:42)
[2019-09-02] MEDS: ASCORBIC ACID 500 MG TAB PO SCH (08:08)
[2019-09-02] MEDS: METOPROLOL SUCCINATE (ER) 25 MG TAB.ER.24H PO SCH (08:08)
[2019-09-02] MEDS: ARTIFICIAL TEARS-HYPROMELLOSE DROPS 15 ML BTL BOTH EYES SCH ×2 (08:08→17:43)
[2019-09-02] MEDS: CHOLECALCIFEROL 1,000 UNIT TAB PO SCH (08:08)
[2019-09-02] MEDS: FUROSEMIDE 20 MG TAB PO SCH (08:08)
[2019-09-02] MEDS: FAMOTIDINE 20 MG TAB PO SCH (08:08)
[2019-09-02] MEDS: PETROLATUM, WHITE OINT 50 GM TUBE TOPICAL SCH ×3 (08:09→20:35)
[2019-09-02] MEDS: TAMSULOSIN 0.4 MG CAP.ER.24H PO SCH ×2 (08:09→20:32)
[2019-09-02] MEDS: MULTIVITAMINS, THERA 1 EACH TAB PO SCH (08:09)
[2019-09-02] MEDS: DOXYCYCLINE 100 MG CAP PO SCH ×2 (08:09→18:30)
--- NOTE | 2019-09-02 10:20 | P.PN ---
Subjective Patient is seen in follow-up for acute kidney injury on chronic kidney disease. Creatinine 2.39 as of yesterday. Remains in A. fib. Denies chest pain or shortness of breath. He has been voiding. No vomiting or diarrhea. States he feels well overall. Vital signs are stable. General: The patient appeared well nourished and normally developed. HEENT: Head exam is unremarkable. Neck is without jugular venous distension. LUNGS: Lungs are clear to auscultation and percussion. Breath sounds decreased. HEART: Irregular rate and rhythm. ABDOMEN: Soft, nontender. EXTREMITITES: No edema. Objective - Vital Signs Vital signs: Vital Signs Temp 98.9 F 09/02/19 07:56 Pulse 124 H 09/02/19 08:00 Resp 18 09/02/19 08:00 BP 119/70 09/02/19 07:56 Pulse Ox 96 09/02/19 07:56 Intake & Output 09/01/19 09/02/19 09/02/19 18:59 06:59 18:59 Intake Total 240 300 150 Output Total 200 Balance 40 300 150 Weight 80.5 kg Intake: Intake, IV Titration 200 150 Amount Dextrose 5% in Water 1, 200 150 000 ml @ 50 mls/hr IV . Q23H MEGHA with Sodium Bicarb (1 Meq/ml) 150 ml Rx#:[id number] Oral 240 100 Output: Stool 200 Other: Voiding Method Urinal Urinal Incontinent Incontinent # Voids 2 - Labs CBC & Chem 7: 09/01/19 05:50 09/01/19 05:50 Labs: Abnormal Lab Results - Last 24 Hours (Table) 09/01/19 09/01/19 09/02/19 Range/Units 11:25 20:47 06:01 PT 16.2 H (9.0-12.0) sec INR 1.7 H (<1.2) POC Glucose (mg/dL) 133 H 148 H (75-99) mg/dL 09/02/19 Range/Units 06:17 PT (9.0-12.0) sec INR (<1.2) POC Glucose (mg/dL) 121 H (75-99) mg/dL Microbiology - Last 24 Hours (Table) 08/30/19 15:10 Urine Culture - Preliminary Urine,Voided Yeast species Assessment and Plan Plan: Assessment: 1. Acute kidney injury secondary to ATN secondary to hypotension/A. fib. C reatinine 2.39 as of yesterday. Rule out urinary retention. No hydronephrosis noted on kidney ultrasound. 2. A. fib with RVR maintained on Toprol. Cardiology following. 3. Hyperkalemia secondary to acute kidney injury, metabolic acidosis and spironolactone. Improved. 4. Chronic kidney disease stage IIIB/4 secondary to diabetic kidney disease and nephrosclerosis. Baseline creatinine near 2. 5. History of colostomy secondary to perforated diverticula. Wound cultures have been positive. Infectious disease following 6. Metabolic acidosis secondary to acute kidney injury. Improved. Plan: Hep-Lock IV fluids. Maintain Lasix 20 mg orally once daily. Check postvoid residual to rule out urinary retention. Repeat electrolytes in the morning.
--- NOTE | 2019-09-02 11:18 | P.PN ---
Subjective Progress Note Date: 09/02/19 Physical pleasant 83-year-old gentleman with a history of hypertension, paroxysmal atrial fibrillation, SVT, DVT, diabetes, neuropathy, colostomy, CK D, and anemia. Was admitted for treatment of atrial fibrillation with rapid ventricular response. Initially converted back to sinus rhythm. They have bloc ker dose was decreased due to symptomatic hypotension. Heart rate is poorly controlled in the low 100s to 120s. Anticoagulation has been on hold due to hematuria as well as significant ecchymosis involving the left side of his body. Objective - Vital Signs Vital signs: Vital Signs Temp 98.9 F 09/02/19 07:56 Pulse 124 H 09/02/19 08:00 Resp 18 09/02/19 08:00 BP 119/70 09/02/19 07:56 Pulse Ox 96 09/02/19 07:56 Intake & Output 09/01/19 09/02/19 09/02/19 18:59 06:59 18:59 Intake Total 240 300 150 Output Total 200 Balance 40 300 150 Weight 80.5 kg Intake: Intake, IV Titration 200 150 Amount Dextrose 5% in Water 1, 200 150 000 ml @ 50 mls/hr IV . Q23H MEGHA with Sodium Bicarb (1 Meq/ml) 150 ml Rx#:[id number] Oral 240 100 Output: Stool 200 Other: Voiding Method Urinal Urinal Incontinent Incontinent # Voids 2 - Exam PHYSICAL EXAMINATION: HEENT: Head is atraumatic, normocephalic. Pupils equal, round. Neck is supple. There is no elevated jugular venous pressure. HEART EXAMINATION: Heart sounds irregularly irregular, S1 and S2 with a systolic murmur. Tachycardia noted CHEST EXAMINATION: Lungs reveal diminished air entry bilaterally. No chest wall tenderness is noted on palpation or with deep breathing. ABDOMEN: Soft, nontender. Bowel sounds are heard. No organomegaly noted. EXTREMITIES: 2+ peripheral pulses with evidence of trace peripheral edema and no calf tenderness noted. NEUROLOGIC patient is awake, alert and oriented x3. . - Labs CBC & Chem 7: 09/01/19 05:50 09/01/19 05:50 Labs: Abnormal Lab Results - Last 24 Hours (Table) 09/01/19 09/01/19 09/02/19 Range/Units 11:25 20:47 06:01 PT 16.2 H (9.0-12.0) sec INR 1.7 H (<1.2) POC Glucose (mg/dL) 133 H 148 H (75-99) mg/dL 09/02/19 Range/Units 06:17 PT (9.0-12.0) sec INR (<1.2) POC Glucose (mg/dL) 121 H (75-99) mg/dL Microbiology - Last 24 Hours (Table) 08/30/19 15:10 Urine Culture - Preliminary Urine,Voided Yeast species Assessment and Plan Assessment: #1 paroxysmal atrial fibrillation with rapid ventricular response, heart rate currently poorly controlled, anticoagulation on hold due to hematuria and ecchymosis #2 abnormal troponin likely secondary to combination of hypoxia and A. fib with RVR, no significant rise and fall pattern, not consistent with acute coronary event #3 ADA on CKD, eating followed by nephrology #4 acute on chronic congestive heart failure, diastolic, recent echocardiogram showed ejection fraction 55-60% with moderate concentric LVH #5 COPD #6 dementia #7 history of DVT Plan: From cardiology perspective, we will increase metoprolol and monitor blood pressure. Resume oral anticoagulation when okay with primary. Continue to monitor I's and O's, daily weights, lites BUN and creatinine. We will continue to follow the patient provided further recommendations accordingly. [employer] DEVELOPMENT MANAGER note has been reviewed, I agree with a documented findings and plan of care. Patient was seen and examined.
--- NOTE | 2019-09-02 11:21 | P.PN ---
Subjective Progress Note Date: 09/02/19 83-year-old male one of my office patient who has been in [facility] for the last 2 years was known to have history of coronary artery disease, A. 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 I received a phone call from [facility] with Mr. Damico the nurse complaining of that he is not feeling well and had significant rapid pulse running over 100 2250 bpm with slightly low blood pressure. Not been able to stabilize him in [facility] ended up being transfer to [facility] emergency department where was seen and evaluated he was running in A. fib with rapid ventricular response was not able to control his symptom without IV Cardizem patient is already on anticoagulation his INR was tested and found to be at 2.5. Consult cardiology Patient on Cardizem drip and admit patient to the hospital for the above problem. 08/29: Patient is seen today in the cardiac stepdown unit. 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 Heart rate is running 95-115. Blood pressure 109/60, pulse ox 99% on 2 L nasal cannula. Patient is reaching 500 on incentive spirometry. Patient has been evaluated by cardiology and Cardizem drip discontinued, metoprolol XL increased to 50 mg twice daily. We will plan to discontinue Coumadin altogether and start the patient on eliquis starting tomorrow. Patient does have some dark red hematuria for which we will reevaluate in the morning. Start eliquis. Patient was ordered for 1 dose of IV Lasix. Echocardiogram reveals EF of 55-60% with moderate concentric left ventricular hypertrophy, trace mitral regurgitation, trace tricuspid regurgitation. Consult added for Dr. Sloan and she has recommended IV bicarb, discontinue Aldactone, discontinue milk of magnesia and sodium biphosphate enema. Post void residual to be checked. Renal ultrasound reveals suboptimal study without hydronephrosis seen bilaterally. Findings consistent with chronic medical renal disease. Consult with Dr. Alfred added for ESBL abdominal wound recently treated at [facility], chronic wound to the right lower extremity which we he is on chronic doxycycline and possibly the ertapenem could have caused tachycardia. Hemoglobin is 10.3 and will be re checked this afternoon and in the morning. Hemoglobin 10.3 is close to patient's baseline. Patient has been seen by the wound care team and ordered zinc barrier cream to the abdomen and also to the coccyx area along with a foam sacral dressing to be changed daily. 08/30: Patient denies any new complaints. He states he is feeling well today. He denies having any chest pain or palpitations. coremaking supervisor is a sinus rhythm with first-degree block with heart rate running in the 80s, he has been afebrile, blood pressure 96/61, pulse ox 99% on 2 L nasal cannula. Repeat blood work reveals WBC 12.3, hemoglobin 8.3, platelet count 179. INR is 3.0 and eliquis will be placed on hold. Sodium 136, potassium 5.3, chloride 111, CO2 20, BUN 16 creatinine 2.44. Blood sugar 105. Urine culture is in progress. Consult Dr. Alfred is pending. Anticipate discharge back to [facility] on Monday. 08/31: Patient denies any new complaints. Patient continues to be followed by nephrology and is on Lasix 20 mg oral daily and bicarb drip. Patient is known to have significant ecchymosis to the left back and flank and left arm. There is known known falls at the [facility]. In no injuries while in the hospital. His INR today is at 2.2 and eliquis will remain on hold and to ecchymosis has cleared. There's been no further hematuria. Hemoglobin is 8.5, WBC 13.5, BUN 63 and creatinine 2.39, CO2 is 24. Urine culture was finalized with no growth. Patient is followed by Dr. Alfred and patient is currently on Invanz. Patient's heart rate has been controlled in the 90s, blood pressure 123/66, patient has been afebrile. coremaking supervisor is sinus rhythm. Incentive spirometry 500 ML's. Plan for discharge back to [facility] tomorrow. 09/01: Patient states that he is not feeling well this morning. His heart rate is running in the 120s. Cardiology had decreased metoprolol succinate 225 mg twice daily due to complaints of dizziness and low blood pressure. Today blood pressure is 119/70, pulse ox is 96% on 2 L nasal cannula, patient afebrile. Repeat INR 1.7. Eliquis will remain on hold. Blood sugars are running [address] Alfred is recommended discontinuing IV antibiotics is no sign of infection at the abdominal ulcer site and no UTI. Urine culture finalized with no growth. Repeat chest x-ray has been ordered for today. And monitor for urinary retention. Repeat lab work ordered for tomorrow. Anticipate possible discharge to [facility] tomorrow. Objective - Vital Signs Vital signs: Vital Signs Temp 98.9 F 09/02/19 07:56 Pulse 124 H 09/02/19 07:56 Resp 18 09/02/19 07:56 BP 119/70 09/02/19 07:56 Pulse Ox 96 09/02/19 07:56 Intake & Output 09/01/19 09/02/19 09/02/19 18:59 06:59 18:59 Intake Total 240 300 Output Total 200 Balance 40 300 Weight 80.5 kg Intake: Intake, IV Titration 200 Amount Dextrose 5% in Water 1, 200 000 ml @ 50 mls/hr IV . Q23H MEGHA with Sodium Bicarb (1 Meq/ml) 150 ml Rx#:[id number] Oral 240 100 Output: Stool 200 Other: Voiding Method Urinal Incontinent # Voids 2 - Exam Review of Systems CONSTITUTIONAL: Denies acute respiratory distress. Denies fevers, denies chills. Reports malaise. EYES: No icterus sclerae, no conjunctivitis. EARS, NOSE, MOUTH, THROAT, and FACE: No sore throat, lymphadenopathy, carotid bruits or deformity. RESPIRATORY: Denies shortness of breath no cough wheezes. CARDIOVASCULAR: Denies PND orthopnea and edema no chest pain no shortness of breath denies dyspnea. GASTROINTESTINAL: No Abd pain, Nausea or vomiting, no Diarrhea or constipation, No GI Bleed, no distention or masses. Positive ostomy with no diarrhea. GENITOURINARY: Negative for Hematuria or UTI, no kidney stones. INTEGUMENT/BREAST: Negative for any muscular injury with mild osteoarthritis. R eports ecchymosis.. HEMATOLOGIC/LYMPHATIC: Negative for bleed or purpura. MUSCULOSKELTAL: chronic one and area and drainage from prosthetic knee in the right side. NEURLOGICAL: No LOC, Sz or syncope, blurred vision dizziness or abnormality.. BEHAVIORAL/PSYCH: Negative. ENDOCRINE: Negative. Physical examination General Appearance: Alert, cooperative, no distress, appears stated age. Patient is sitting up in bed and appears to be comfortable. Neck HEENT: Supple, no lymphadenopathy, no thyroid enlargement, no carotid bruits. Lungs: Decreased breath sounds no crackles or wheezes. Chest Wall: Decrease expansion with deep inspiration no tenderness and no deformity was found on exam, no costochondral pain or discomfort. Heart: Irregular rate and rhythm, S1, S2 positive, 3 positive JVD with minimal tachycardia.. Back: Symmetric, no curvature, ROM normal, no CVA tenderness. Abdomen: Soft, non-tender, bowel sounds active all four quadrants, no masses, ostomy stoma looks good with no abnormality or hernia. Has a small irritation in the mid abdominal region. Extremities: Significant edema bilaterally right knee still have significant scar tissue with prostatic area with the spot on the incision looks healing with slight drainage only. Pulses: Decreased bilaterally. Skin: Skin color, texture, tugor normal, no rashes or lesions. Neurologic: Alert oriented x3 cranial nerves II through XII intact, no motor deficit, no abnormal balance or gait. - Labs CBC & Chem 7: 09/01/19 05:50 09/01/19 05:50 Labs: Abnormal Lab Results - Last 24 Hours (Table) 09/01/19 09/01/19 09/02/19 Range/Units 11:25 20:47 06:01 PT 16.2 H (9.0-12.0) sec INR 1.7 H (<1.2) POC Glucose (mg/dL) 133 H 148 H (75-99) mg/dL 09/02/19 Range/Units 06:17 PT (9.0-12.0) sec INR (<1.2) POC Glucose (mg/dL) 121 H (75-99) mg/dL Microbiology - Last 24 Hours (Table) 08/30/19 15:10 Urine Culture - Preliminary Urine,Voided Yeast species Assessment and Plan Plan: 1 paroxysmal atrial fibrillation with rapid ventricular response. Continue metoprolol XL 25 mg twice daily, discontinue Coumadin and hold eliquis while monitoring INR, significant ecchymosis and hematuria. Cardiology consult appreciated. 2 history of coronary artery disease: Patient has been seeing cardiology regular basis and testing are up-to-date. 3 elevated troponin secondary to hypoxia and A. fib with RVR. Cardiology consult appreciated. 4 stage IV chronic kidney disease secondary to diabetic nephropathy and nephrosclerosis and acute kidney injury with hyperkalemia and non-gap metabolic acidosis. Consult with nephrology. Bicarb drip discontinued. 5 acute on chronic diastolic heart failure. Continue Lasix 20 mg oral daily, and metoprolol. 6 history of ESBL of the stomach wall. Wound Center consult appreciated. Discontinue ertapenem per Dr. Yang's recommendations. 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 Consult with Dr. Alfred to evaluate. Continue doxycycline. 8 chronic history of diabetic neuropathy: Has been on gabapentin total of 900 mg twice a day. 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 10 history of BPH: Has been on tamsulosin 0.4 mg twice a day with good result so far. 11 history of dementia: Alzheimer type, has been on Aricept and doxepin. 12 reactive airway with mild COPD: Continue patient on albuterol/ipratropium. 13 chronic pain syndrome: Has been on hydrocodone on as needed basis. 14 severe gastritis and recurrent bleed, patient has been on Carafate along with pantoprazole. Was complaining of mild dysphagia and was post to see Dr. Garcia for EGD and possible need diet patient. 15 anticoagulation management: Has been on warfarin which up till now, plan to eventually transition to eliquis while at the [facility]. 16. Hematuria. Resolved. 17. Chronic stage II decubitus ulcer to the coccyx region, abdominal ulceration proximal to the colectomy, both present on admission. Wound team consult appreciated. Zinc barrier cream to be utilized. 18. COVID-19 infection not present. 19. Pyuria without UTI. Urine culture to be obtained. Consult with Dr. Alfred appreciated with recommendations to discontinue ertapenem. 20. Anemia of chronic kidney disease. Monitor for bleeding. 21. DVT prophylaxis: Hold anticoagulation. CODE STATUS: Full code. Discharge plan: Return to [facility] on Monday Impression and plan of care have been directed as dictated by the signing physician. Lyndsay Gimenez nurse practitioner acting as scribe for signing physician.
[2019-09-02 12:09] LABS: Glucose,Whole Blood 132 mg/dL (75-99)
[2019-09-02] MEDS: IPRATROPIUM-ALBUTEROL 3 ML NEB INHALATION PRN (12:37)
[2019-09-02 17:26] LABS: Glucose,Whole Blood 124 mg/dL (75-99)
[2019-09-02] MEDS: SUCRALFATE 1 GM TAB PO SCH (17:42)
--- NOTE | 2019-09-02 18:40 | XR ---
EXAMINATION TYPE: XR chest 2V DATE OF EXAM: 09/02/2019 COMPARISON: 08/30/2019 HISTORY: Pleural effusion. TECHNIQUE: FINDINGS: There is bilateral blunting of the costophrenic angles. There is some infiltrate and atelec tasis in the left lower lobe. There is mild pulmonary vascular congestion. IMPRESSION: Pleural effusions with left lower lobe pneumonia and atelectasis that are significantly i ncreased compared to old exam. Mild pulmonary congestion but no obvious heart failure.
[2019-09-02] MEDS: METOPROLOL SUCCINATE (ER) 50 MG TAB.ER.24H PO SCH (20:31)
[2019-09-02] MEDS: ALPRAZolam 0.25 MG TAB PO SCH (20:31)
[2019-09-02] MEDS: DOXEPIN 25 MG CAP PO SCH (20:32)
[2019-09-02] MEDS: HYDROcodone/APAP 5-325MG 1 EACH TAB PO SCH (20:32)
[2019-09-02 20:44] LABS: Glucose,Whole Blood 134 mg/dL (75-99)
--- NOTE | 2019-09-03 02:48 | PN ---
PROGRESS NOTE DATE OF SERVICE: 09/02/2019 REASON FOR FOLLOWUP: 1. Abdominal wound and a question of secondary cellulitis. 2. UTI. INTERVAL HISTORY: The patient is currently afebrile, has been breathing comfortably. Patient denies having any chest pain or shortness of breath or cough. No abdominal pain. No diarrhea. PHYSICAL EXAMINATION: Blood pressure 107/66, pulse of 106, temperature 98. He is 100% on 2 L nasal cannula. General description is an elderly male lying in bed in no distress. RESPIRATORY SYSTEM: Unlabored breathing, clear to auscultation anteriorly. HEART: S1, S2. Regular rate and rhythm. ABDOMEN: Soft. EXTREMITIES: No edema of feet. The patient did have significant bruise on the right arm and posterior chest area. LABS: Hemoglobin 8.5, white count 13.5, BUN of 63, creatinine is 2.39. DIAGNOSTIC IMPRESSION AND PLAN: 1. Patient with abdominal wound with positive cultures more likely representing contamination from his colostomy. Continue local wound care with dry Aquacel dressing. 2. Concern for urinary tract infection. Urine culture negative. Antibiotic has been discontinued. 3. Elevated white count, multifactorial. The patient did have significant bruising of his body, more likely contributing to it. Will be monitored closely. Continue supportive care. MMODL / IJN: [id number] /
[2019-09-03] MEDS: HYDROcodone/APAP 5-325MG 1 EACH TAB PO PRN (04:16)
[2019-09-03] MEDS ORDERED: FUROSEMIDE 10 MG/ML 4 ML VIAL IV STA (05:43)
[2019-09-03 06:20] LABS: Glucose,Whole Blood 109 mg/dL (75-99)
[2019-09-03 07:12] LABS: Potassium 5.4 mmol/L (3.5-5.1)
[2019-09-03 07:16] LABS: INR 1.5 (<1.2); Prothrombin Time 14.6 sec (9.0-12.0)
[2019-09-03 07:36] LABS: Anisocytosis Slight; HCT 29.7 % (39.0-53.0); HGB 8.3 gm/dL (13.0-17.5); Hypochromasia Marked; MCH 28.9 pg (25.0-35.0); MCHC 27.9 g/dL (31.0-37.0); MCV 103.8 fL (80.0-100.0); Macrocytosis Moderate; Mean Platelet Volume 7.7; Platelet Count 141 k/uL (150-450); RBC 2.86 m/uL (4.30-5.90); RDW 17.6 % (11.5-15.5); WBC 37.2 k/uL (3.8-10.6)
[2019-09-03] MEDS: METHYL SALICYLATE/MENTHOL CREAM 5 OZ TOPICAL SCH ×2 (08:33→17:13)
[2019-09-03] MEDS: ARTIFICIAL TEARS-HYPROMELLOSE DROPS 15 ML BTL BOTH EYES SCH ×2 (08:33→17:13)
[2019-09-03] MEDS: GABAPENTIN 300 MG CAP PO SCH ×2 (08:33→17:13)
[2019-09-03] MEDS: FAMOTIDINE 20 MG TAB PO SCH (08:34)
[2019-09-03] MEDS: CHOLECALCIFEROL 1,000 UNIT TAB PO SCH (08:34)
[2019-09-03] MEDS: FUROSEMIDE 20 MG TAB PO SCH (08:34)
[2019-09-03] MEDS: MULTIVITAMINS, THERA 1 EACH TAB PO SCH (08:34)
[2019-09-03] MEDS: DONEPEZIL 10 MG TAB PO SCH (08:34)
[2019-09-03] MEDS: METOPROLOL SUCCINATE (ER) 50 MG TAB.ER.24H PO SCH ×2 (08:34→20:17)
[2019-09-03] MEDS: ASCORBIC ACID 500 MG TAB PO SCH (08:34)
[2019-09-03] MEDS: FERROUS SULFATE 325 MG TAB PO SCH (08:34)
[2019-09-03] MEDS: PETROLATUM, WHITE OINT 50 GM TUBE TOPICAL SCH ×3 (08:35→23:15)
[2019-09-03] MEDS: TAMSULOSIN 0.4 MG CAP.ER.24H PO SCH ×2 (08:36→20:17)
[2019-09-03] MEDS: DOXYCYCLINE 100 MG CAP PO SCH ×2 (08:36→19:05)
[2019-09-03] MEDS ORDERED: FUROSEMIDE 40 MG TAB PO SCH (09:00)
[2019-09-03] MEDS: IPRATROPIUM-ALBUTEROL 3 ML NEB INHALATION PRN ×2 (09:06→20:22)
[2019-09-03 09:24] LABS: Anisocytosis Slight; HCT 34.5 % (39.0-53.0); HGB 9.4 gm/dL (13.0-17.5); Hypochromasia Marked; MCH 28.3 pg (25.0-35.0); MCHC 27.3 g/dL (31.0-37.0); MCV 103.8 fL (80.0-100.0); Macrocytosis Moderate; Mean Platelet Volume 7.2; Platelet Count 192 k/uL (150-450); RBC 3.33 m/uL (4.30-5.90); RDW 17.7 % (11.5-15.5); WBC 39.6 k/uL (3.8-10.6)
[2019-09-03] MEDS: FUROSEMIDE 10 MG/ML 4 ML VIAL IV SCH ×2 (10:06→20:16)
--- NOTE | 2019-09-03 11:51 | P.PN ---
Subjective Patient is seen in follow-up for acute kidney injury on chronic kidney disease. Renal function fairly stable. Creatinine 2.18 today. Denies chest pain or shortness of breath. He has been voiding. No vomiting or diarrhea. Oral intake is fair. He was started on IV Lasix today. Vital signs are stable. General: The patient appeared well nourished and normally developed. HEENT: Head exam is unremarkable. Neck is without jugular venous distension. LUNGS: Breath sounds decreased. HEART: Irregular rate and rhythm. ABDOMEN: Soft, nontender. EXTREMITITES: Trace edema. Objective - Vital Signs Vital signs: Vital Signs Temp 97.7 F 09/03/19 08:00 Pulse 98 09/03/19 11:19 Resp 16 09/03/19 11:19 BP 97/56 09/03/19 11:18 Pulse Ox 97 09/03/19 11:18 Intake & Output 09/02/19 09/03/19 09/03/19 18:59 06:59 18:59 Intake Total 150 580 Output Total 250 Balance -100 580 Weight 79.9 kg Intake: Intake, IV Titration 150 Amount Dextrose 5% in Water 1, 150 000 ml @ 50 mls/hr IV . Q23H MEGHA with Sodium Bicarb (1 Meq/ml) 150 ml Rx#:[id number] Oral 580 Output: Stool 250 Other: Voiding Method Urinal Incontinent Incontinent Incontinent # Voids 3 1 - Labs CBC & Chem 7: 09/03/19 09:09 09/03/19 06:11 Labs: Abnormal Lab Results - Last 24 Hours (Table) 09/02/19 09/02/19 09/02/19 Range/Units 12:07 17:22 20:42 WBC (3.8-10.6) k/uL RBC (4.30-5.90) m/uL Hgb (13.0-17.5) gm/dL Hct (39.0-53.0) % MCV (80.0-100.0) fL MCHC (31.0-37.0) g/dL RDW (11.5-15.5) % Plt Count (150-450) k/uL PT (9.0-12.0) sec INR (<1.2) Sodium (137-145) mmol/L Potassium (3.5-5.1) mmol/L BUN (9-20) mg/dL Creatinine (0.66-1.25) mg/dL POC Glucose (mg/dL) 132 H 124 H 134 H (75-99) mg/dL 09/03/19 09/03/19 09/03/19 Range/Units 06:11 06:11 06:11 WBC 37.2 H (3.8-10.6) k/uL RBC 2.86 L (4.30-5.90) m/uL Hgb 8.3 L (13.0-17.5) gm/dL Hct 29.7 L (39.0-53.0) % MCV 103.8 H (80.0-100.0) fL MCHC 27.9 L (31.0-37.0) g/dL RDW 17.6 H (11.5-15.5) % Plt Count 141 L (150-450) k/uL PT 14.6 H (9.0-12.0) sec INR 1.5 H (<1.2) Sodium 136 L (137-145) mmol/L Potassium 5.4 H (3.5-5.1) mmol/L BUN 68 H (9-20) mg/dL Creatinine 2.18 H (0.66-1.25) mg/dL POC Glucose (mg/dL) (75-99) mg/dL 09/03/19 09/03/19 Range/Units 06:18 09:09 WBC 39.6 H (3.8-10.6) k/uL RBC 3.33 L (4.30-5.90) m/uL Hgb 9.4 L (13.0-17.5) gm/dL Hct 34.5 L (39.0-53.0) % MCV 103.8 H (80.0-100.0) fL MCHC 27.3 L (31.0-37.0) g/dL RDW 17.7 H (11.5-15.5) % Plt Count (150-450) k/uL PT (9.0-12.0) sec INR (<1.2) Sodium (137-145) mmol/L Potassium (3.5-5.1) mmol/L BUN (9-20) mg/dL Creatinine (0.66-1.25) mg/dL POC Glucose (mg/dL) 109 H (75-99) mg/dL Microbiology - Last 24 Hours (Table) 08/30/19 15:10 Urine Culture - Final Urine,Voided Angella glabrata Assessment and Plan Plan: Assessment: 1. Acute kidney injury secondary to ATN secondary to hypotension/A. fib. Renal function fairly stable. Creatinine 2.18 today. No evidence of urinary retention. No hydronephrosis noted on kidney ultrasound. 2. A. fib with RVR maintained on Toprol. Cardiology following. 3. Hyperkalemia secondary to acute kidney injury, metabolic acidosis and spironolactone. Improved. 4. Chronic kidney disease stage IIIB/4 secondary to diabetic kidney disease and nephrosclerosis. Baseline creatinine near 2. 5. History of colostomy secondary to perforated diverticula. Wound cultures have been positive. Infectious disease following 6. Metabolic acidosis secondary to acute kidney injury. Improved. 7. Mild volume overload. Plan: Continue IV Lasix for 24 hours. Monitor renal function and urine output. Repeat electrolytes in the morning.
--- NOTE | 2019-09-03 11:55 | P.PN ---
Subjective Progress Note Date: 09/03/19 This is a pleasant 83-year-old gentleman with a history of hypertension, paroxysmal atrial fibrillation, SVT, DVT, diabetes, neuropathy, colostomy, CK D, and anemia. Was admitted for treatment of atrial fibrillation with rapid ventricular response. Initially converted back to sinus rhythm. They have blo cker dose was decreased due to symptomatic hypotension. Heart rate is poorly controlled in the low 100s to 120s. Anticoagulation has been on hold due to hematuria as well as significant ecchymosis involving the left side of his body. 09/03/2019 Patient was seen and examined resting comfortably in bed. Heart rate is better controlled in the 90s. Ecchymosis remains but does not appear to be worse than yesterday. Chest x-ray done yesterday showed pleural effusions with left lower lobe pneumonia which is increased since previous. Labs morning showed hemoglobin stable at 9.4, INR 1.5, potassium 5.4, BUN 16 creatinine 2.18. Coumadin has been on hold. Objective - Vital Signs Vital signs: Vital Signs Temp 97.7 F 09/03/19 08:00 Pulse 98 09/03/19 11:19 Resp 16 09/03/19 11:19 BP 97/56 09/03/19 11:18 Pulse Ox 97 09/03/19 11:18 Intake & Output 09/02/19 09/03/19 09/03/19 18:59 06:59 18:59 Intake Total 150 580 Output Total 250 Balance -100 580 Weight 79.9 kg Intake: Intake, IV Titration 150 Amount Dextrose 5% in Water 1, 150 000 ml @ 50 mls/hr IV . Q23H MEGHA with Sodium Bicarb (1 Meq/ml) 150 ml Rx#:[id number] Oral 580 Output: Stool 250 Other: Voiding Method Urinal Incontinent Incontinent Incontinent # Voids 3 1 - Exam PHYSICAL EXAMINATION: HEENT: Head is atraumatic, normocephalic. Pupils equal, round. Neck is supple. There is no elevated jugular venous pressure. HEART EXAMINATION: Heart sounds irregularly irregular, S1 and S2 with a systolic murmur. CHEST EXAMINATION: Lungs reveal diminished air entry bilaterally with crackles noted to the bilateral bases. No chest wall tenderness is noted on palpation or with deep breathing. ABDOMEN: Soft, nontender. Bowel sounds are heard. No organomegaly noted. EXTREMITIES: 2+ peripheral pulses with evidence of mild peripheral edema and no calf tenderness noted. NEUROLOGIC patient is awake, alert and oriented x2. . - Labs CBC & Chem 7: 09/03/19 09:09 09/03/19 06:11 Labs: Abnormal Lab Results - Last 24 Hours (Table) 09/02/19 09/02/19 09/02/19 Range/Units 12:07 17:22 20:42 WBC (3.8-10.6) k/uL RBC (4.30-5.90) m/uL Hgb (13.0-17.5) gm/dL Hct (39.0-53.0) % MCV (80.0-100.0) fL MCHC (31.0-37.0) g/dL RDW (11.5-15.5) % Plt Count (150-450) k/uL PT (9.0-12.0) sec INR (<1.2) Sodium (137-145) mmol/L Potassium (3.5-5.1) mmol/L BUN (9-20) mg/dL Creatinine (0.66-1.25) mg/dL POC Glucose (mg/dL) 132 H 124 H 134 H (75-99) mg/dL 09/03/19 09/03/19 09/03/19 Range/Units 06:11 06:11 06:11 WBC 37.2 H (3.8-10.6) k/uL RBC 2.86 L (4.30-5.90) m/uL Hgb 8.3 L (13.0-17.5) gm/dL Hct 29.7 L (39.0-53.0) % MCV 103.8 H (80.0-100.0) fL MCHC 27.9 L (31.0-37.0) g/dL RDW 17.6 H (11.5-15.5) % Plt Count 141 L (150-450) k/uL PT 14.6 H (9.0-12.0) sec INR 1.5 H (<1.2) Sodium 136 L (137-145) mmol/L Potassium 5.4 H (3.5-5.1) mmol/L BUN 68 H (9-20) mg/dL Creatinine 2.18 H (0.66-1.25) mg/dL POC Glucose (mg/dL) (75-99) mg/dL 09/03/19 09/03/19 Range/Units 06:18 09:09 WBC 39.6 H (3.8-10.6) k/uL RBC 3.33 L (4.30-5.90) m/uL Hgb 9.4 L (13.0-17.5) gm/dL Hct 34.5 L (39.0-53.0) % MCV 103.8 H (80.0-100.0) fL MCHC 27.3 L (31.0-37.0) g/dL RDW 17.7 H (11.5-15.5) % Plt Count (150-450) k/uL PT (9.0-12.0) sec INR (<1.2) Sodium (137-145) mmol/L Potassium (3.5-5.1) mmol/L BUN (9-20) mg/dL Creatinine (0.66-1.25) mg/dL POC Glucose (mg/dL) 109 H (75-99) mg/dL Microbiology - Last 24 Hours (Table) 08/30/19 15:10 Urine Culture - Final Urine,Voided Angella glabrata Assessment and Plan Assessment: #1 paroxysmal atrial fibrillation with rapid ventricular response, heart rate currently poorly controlled, anticoagulation on hold due to hematuria and ecchymosis #2 abnormal troponin likely secondary to combination of hypoxia and A. fib with RVR, no significant rise and fall pattern, not consistent with acute coronary event #3 ADA on CKD, followed by nephrology #4 acute on chronic congestive heart failure, diastolic, recent echocardiogram s howed ejection fraction 55-60% with moderate concentric LVH #5 COPD #6 dementia #7 history of DVT Plan: From cardiology perspective, medications were reviewed and will continue the same. Diuretics per nephrology. Resume oral anticoagulation when okay with primary. Continue to monitor I's and O's, daily weights, lites BUN and creatinine. We will continue to follow the patient provided further recommendations accordingly. [employer] CHIE[employer] note has been reviewed, I agree with a documented findings and plan of care. Patient was seen and examined.
[2019-09-03 13:57] VITALS: BMI 28.4
--- NOTE | 2019-09-03 14:01 | P.PN ---
Subjective Progress Note Date: 09/03/19 83-year-old male one of my office patient who has been in [facility] for the last 2 years was known to have history of coronary artery disease, A. 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 I received a phone call from [facility] with Mr. Damico the nurse complaining of that he is not feeling well and had significant rapid pulse running over 100 2250 bpm with slightly low blood pressure. Not been able to stabilize him in [facility] ended up being transfer to [facility] emergency department where was seen and evaluated he was running in A. fib with rapid ventricular response was not able to control his symptom without IV Cardizem patient is already on anticoagulation his INR was tested and found to be at 2.5. Consult cardiology Patient on Cardizem drip and admit patient to the hospital for the above problem. 08/29: Patient is seen today in the cardiac stepdown unit. patient monitor remain s atrial fibrillation with moderately controlled rate. Heart rate is running 95-115. Blood pressure 109/60, pulse ox 99% on 2 L nasal cannula. Patient is reaching 500 on incentive spirometry. Patient has been evaluated by cardiology and Cardizem drip discontinued, metoprolol XL increased to 50 mg twice daily. We will plan to discontinue Coumadin altogether and start the patient on eliquis starting tomorrow. Patient does have some dark red hematuria for which we will reevaluate in the morning. Start eliquis. Patient was ordered for 1 dose of IV Lasix. Echocardiogram reveals EF of 55-60% with moderate concentric left ventricular hypertrophy, trace mitral regurgitation, trace tricuspid regurgitation. Consult added for Dr. Sloan and she has recommended IV bicarb, discontinue Aldactone, discontinue milk of magnesia and sodium biphosphate enema. Post void residual to be checked. Renal ultrasound reveals suboptimal study without hydronephrosis seen bilaterally. Findings consistent with chronic medical renal disease. Consult with Dr. Alfred added for ESBL abdominal wound recently treated at intermediate, chronic wound to the right lower extremity which we he is on chronic doxycycline and possibly the ertapenem could have caused tachycardia. Hemoglobin is 10.3 and will be re checked this afternoon and in the morning. Hemoglobin 10.3 is close to patient's baseline. Patient has been seen by the wound care team and ordered zinc barrier cream to the abdomen and also to the coccyx area along with a foam sacral dressing to be changed daily. 08/30: Patient denies any new complaints. He states he is feeling well today. He denies having any chest pain or palpitations. patient monitor is a sinus rhythm with first-degree block with heart rate running in the 80s, he has been afebrile, blood pressure 96/61, pulse ox 99% on 2 L nasal cannula. Repeat blood work reveals WBC 12.3, hemoglobin 8.3, platelet count 179. INR is 3.0 and eliquis will be placed on hold. Sodium 136, potassium 5.3, chloride 111, CO2 20, BUN 16 creatinine 2.44. Blood sugar 105. Urine culture is in progress. Consult Dr. Alfred is pending. Anticipate discharge back to [facility] on Monday. 08/31: Patient denies any new complaints. Patient continues to be followed by nephrology and is on Lasix 20 mg oral daily and bicarb drip. Patient is known to have significant ecchymosis to the left back and flank and left arm. There is known known falls at the intermediate. In no injuries while in the hospital. His INR today is at 2.2 and eliquis will remain on hold and to ecchymosis has cleared. There's been no further hematuria. Hemoglobin is 8.5, WBC 13.5, BUN 63 and creatinine 2.39, CO2 is 24. Urine culture was finalized with no growth. Patient is followed by Dr. Alfred and patient is currently on Invanz. Patient's heart rate has been controlled in the 90s, blood pressure 123/66, patient has been afebrile. patient monitor is sinus rhythm. Incentive spirometry 500 ML's. Plan for discharge back to [facility] tomorrow. 09/01: Patient states that he is not feeling well this morning. His heart rate is running in the 120s. Cardiology had decreased metoprolol succinate 225 mg twice daily due to complaints of dizziness and low blood pressure. Today blood pressure is 119/70, pulse ox is 96% on 2 L nasal cannula, patient afebrile. Repeat INR 1.7. Eliquis will remain on hold. Blood sugars are running [address] Alfred is recommended discontinuing IV antibiotics is no sign of infection at the abdominal ulcer site and no UTI. Urine culture finalized with no growth. Repeat chest x-ray has been ordered for today. And monitor for urinary retention. Repeat lab work ordered for tomorrow. Anticipate possible discharge to [facility] tomorrow. 09/02: Chest x-ray from yesterday reveals pleural effusions with left lower lobe pneumonia and atelectasis that are significantly increased compared to old exam. Mild pulmonary congestion but no obvious heart failure. Pneumonia is doubtful at this time. Patient was started on IV Lasix this morning he received 1 dose of 40 mg in the mica sizer and will be continued on IV Lasix. He states his breathing is not bad today. Patient did have a significant jump in his white count to 37. 2 and repeated 39.6, hemoglobin is 9.4 platelet count 192. Sodium 136, potassium 5.4, chloride 104, CO2 25, BUN 68 and creatinine 2.18. Blood sugars running between [address] ProBNP [address] Zuñiga has recommended continuing IV Lasix for 24 hours, monitor renal function and urine output and repeat electrolytes. Metoprolol was increased by cardiology yesterday 50 g twice daily with better rate control. Anticipate probable discharge back to [facility] tomorrow. Objective - Vital Signs Vital signs: Vital Signs Temp 97.7 F 09/03/19 08:00 Pulse 99 09/03/19 08:00 Resp 18 09/03/19 08:00 BP 107/68 09/03/19 08:00 Pulse Ox 92 L 09/03/19 08:00 Intake & Output 09/02/19 09/03/19 09/03/19 18:59 06:59 18:59 Intake Total 150 580 Output Total 250 Balance -100 580 Weight 79.9 kg Intake: Intake, IV Titration 150 Amount Dextrose 5% in Water 1, 150 000 ml @ 50 mls/hr IV . Q23H MEGHA with Sodium Bicarb (1 Meq/ml) 150 ml Rx#:[id number] Oral 580 Output: Stool 250 Other: Voiding Method Urinal Incontinent Incontinent # Voids 3 1 - Exam Review of Systems CONSTITUTIONAL: Denies acute respiratory distress. Denies fevers, denies chills. EYES: No icterus sclerae, no conjunctivitis. EARS, NOSE, MOUTH, THROAT, and FACE: No sore throat, lymphadenopathy, carotid bruits or deformity. RESPIRATORY: Denies shortness of breath no cough wheezes. CARDIOVASCULAR: Denies PND orthopnea and edema no chest pain no shortness of breath denies dyspnea. GASTROINTESTINAL: No Abd pain, Nausea or vomiting, no Diarrhea or constipation, No GI Bleed, no distention or masses. Positive ostomy with no diarrhea. GENITOURINARY: Negative for Hematuria or UTI, no kidney stones. INTEGUMENT/BREAST: Negative for any muscular injury with mild osteoarthritis. Reports ecchymosis.. HEMATOLOGIC/LYMPHATIC: Negative for bleed or purpura. MUSCULOSKELTAL: chronic one and area and drainage from prosthetic knee in the right side. NEURLOGICAL: No LOC, Sz or syncope, blurred vision dizziness or abnormality.. BEHAVIORAL/PSYCH: Negative. ENDOCRINE: Negative. Physical examination General Appearance: Alert, cooperative, no distress, appears stated age. Patient is sitting up in bed and appears to be comfortable. Neck HEENT: Supple, no lymphadenopathy, no thyroid enlargement, no carotid bruits. Lungs: Decreased breath sounds bilaterally no crackles or wheezes. Chest Wall: Decrease expansion with deep inspiration no tenderness and no deformity was found on exam, no costochondral pain or discomfort. Heart: Irregular rate and rhythm, S1, S2 positive, 3 positive JVD with minimal tachycardia.. Back: Symmetric, no curvature, ROM normal, no CVA tenderness. Abdomen: Soft, non-tender, bowel sounds active all four quadrants, no masses, ostomy stoma looks good with no abnormality or hernia. Has a small irritation in the mid abdominal region. Extremities: Significant edema bilaterally right knee still have significant scar tissue with prostatic area with the spot on the incision looks healing with slight drainage only. Pulses: Decreased bilaterally. Skin: Skin color, texture, tugor normal, no rashes or lesions. Neurologic: Alert oriented x3 cranial nerves II through XII intact, no motor deficit, no abnormal balance or gait. - Labs CBC & Chem 7: 09/03/19 09:09 09/03/19 06:11 Labs: Abnormal Lab Results - Last 24 Hours (Table) 09/02/19 09/02/19 09/02/19 Range/Units 12:07 17:22 20:42 WBC (3.8-10.6) k/uL RBC (4.30-5.90) m/uL Hgb (13.0-17.5) gm/dL Hct (39.0-53.0) % MCV (80.0-100.0) fL MCHC (31.0-37.0) g/dL RDW (11.5-15.5) % Plt Count (150-450) k/uL PT (9.0-12.0) sec INR (<1.2) Sodium (137-145) mmol/L Potassium (3.5-5.1) mmol/L BUN (9-20) mg/dL Creatinine (0.66-1.25) mg/dL POC Glucose (mg/dL) 132 H 124 H 134 H (75-99) mg/dL 09/03/19 09/03/19 09/03/19 Range/Units 06:11 06:11 06:11 WBC 37.2 H (3.8-10.6) k/uL RBC 2.86 L (4.30-5.90) m/uL Hgb 8.3 L (13.0-17.5) gm/dL Hct 29.7 L (39.0-53.0) % MCV 103.8 H (80.0-100.0) fL MCHC 27.9 L (31.0-37.0) g/dL RDW 17.6 H (11.5-15.5) % Plt Count 141 L (150-450) k/uL PT 14.6 H (9.0-12.0) sec INR 1.5 H (<1.2) Sodium 136 L (137-145) mmol/L Potassium 5.4 H (3.5-5.1) mmol/L BUN 68 H (9-20) mg/dL Creatinine 2.18 H (0.66-1.25) mg/dL POC Glucose (mg/dL) (75-99) mg/dL 09/03/19 Range/Units 06:18 WBC (3.8-10.6) k/uL RBC (4.30-5.90) m/uL Hgb (13.0-17.5) gm/dL Hct (39.0-53.0) % MCV (80.0-100.0) fL MCHC (31.0-37.0) g/dL RDW (11.5-15.5) % Plt Count (150-450) k/uL PT (9.0-12.0) sec INR (<1.2) Sodium (137-145) mmol/L Potassium (3.5-5.1) mmol/L BUN (9-20) mg/dL Creatinine (0.66-1.25) mg/dL POC Glucose (mg/dL) 109 H (75-99) mg/dL Microbiology - Last 24 Hours (Table) 08/30/19 15:10 Urine Culture - Final Urine,Voided Angella glabrata Assessment and Plan Plan: 1 paroxysmal atrial fibrillation with rapid ventricular response. Continue metoprolol XL 50 mg twice daily, discontinue Coumadin and hold eliquis while monitoring INR, significant ecchymosis and hematuria. Cardiology consult appreciated. 2 history of coronary artery disease: Patient has been seeing cardiology regular basis and testing are up-to-date. 3 elevated troponin secondary to hypoxia and A. fib with RVR. Cardiology consult appreciated. 4 stage IV chronic kidney disease secondary to diabetic nephropathy and nephrosclerosis and acute kidney injury with hyperkalemia and non-gap metabolic acidosis. Consult with nephrology. Bicarb drip discontinued. 5 acute on chronic diastolic heart failure. Continue Lasix increased to 40 mg IV twice daily, and metoprolol. 6 history of ESBL of the stomach wall. Wound Center consult appreciated. Discontinue ertapenem per Dr. Alfred recommendations. 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 Consult with Dr. Alfred to evaluate. Continue doxycycline. 8 chronic history of diabetic neuropathy: Has been on gabapentin total of 900 mg twice a day. 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 10 history of BPH: Has been on tamsulosin 0.4 mg twice a day with good result so far. 11 history of dementia: Alzheimer type, has been on Aricept and doxepin. 12 reactive airway with mild COPD: Continue patient on albuterol/ipratropium. 13 chronic pain syndrome: Has been on hydrocodone on as needed basis. 14 severe gastritis and recurrent bleed, patient has been on Carafate along with pantoprazole. Was complaining of mild dysphagia and was post to see Dr. Garcia for EGD and possible need diet patient. 15 anticoagulation management: Has been on warfarin which up till now, plan to eventually transition to eliquis while at the intermediate. 16. Hematuria. Resolved. 17. Chronic stage II decubitus ulcer to the coccyx region, abdominal ulceration proximal to the colectomy, both present on admission. Wound team consult appreciated. Zinc barrier cream to be utilized. 18. COVID-19 infection not present. 19. Pyuria without UTI. Urine culture to be obtained. Consult with Dr. Alfred appreciated with recommendations to discontinue ertapenem. 20. Anemia of chronic kidney disease. Monitor for bleeding. 21. DVT prophylaxis: Hold anticoagulation. CODE STATUS: Full code. Discharge plan: Return to [facility] on Monday Impression and plan of care have been directed as dictated by the signing physi cian. Lyndsay Gimenez nurse practitioner acting as scribe for signing physician.
--- NOTE | 2019-09-03 14:55 | PN ---
PROGRESS NOTE DATE OF SERVICE: 09/03/2019 REASON FOR FOLLOWUP: 1. Abdominal wound with positive culture. 2. Question of UTI with leukocytosis. INTERVAL HISTORY: The patient is currently afebrile, patient is breathing comfortably. Patient denies having any chest pain or shortness of breath. Occasional cough. No abdominal pain, no diarrhea. PHYSICAL EXAMINATION: Blood pressure 97/57 with a 98, temperature is 97.7. He is 97% on 2 L nasal cannula. General description is an elderly male, lying in bed in no distress. RESPIRATORY SYSTEM: Unlabored breathing, clear to auscultation anteriorly. HEART: S1, S2. Regular rate and rhythm. ABDOMEN: Soft, no tenderness. LABS: Hemoglobin 9.4, white count up to 27.2, BUN of 68, creatinine is 2.18. DIAGNOSTIC IMPRESSION AND PLAN: 1. Patient with significant elevated white count, possibly the patient did have significant bruising on his body plus-minus component of possible urinary tract infection with urine showing Angella glabrata. We will add Eraxis and monitor his white count clinical course closely. 2. Abdominal wound. Continue local wound care with dry Aquacel Silver dressing and continue supportive care. MMODL / IJN: [id number] /
[2019-09-03] MEDS ORDERED: ANIDULAFUNGIN 200 MG in SODIUM CHLORIDE 0.9% 200 ML IVPB ONE (15:00)
[2019-09-03] MEDS: SUCRALFATE 1 GM TAB PO SCH (17:13)
[2019-09-03] MEDS: HYDROcodone/APAP 5-325MG 1 EACH TAB PO SCH (20:16)
[2019-09-03] MEDS: ALPRAZolam 0.25 MG TAB PO SCH (20:16)
[2019-09-03] MEDS: DOXEPIN 25 MG CAP PO SCH (20:16)
[2019-09-03 20:41] LABS: Appearance,Urine Clear (Clear); Bilirubin,Urine Negative (Negative); Blood,Urine Small (Negative); Color,Urine Yellow; Glucose,Urine (UA) Negative (Negative); Hyaline Casts,Urine 3 /lpf (0-2); Ketones,Urine Negative (Negative); Leukocyte Esterase,Urine Moderate (Negative); Mucus,Urine Rare /hpf; Nitrite,Urine Negative (Negative); Protein,Urine Negative (Negative); RBC,Urine 7 /hpf (0-5); Specific Gravity,Urine 1.011 (1.001-1.035); Squamous Epithelial Cell,Urine <1 /hpf (0-4); Urobilinogen,Urine <2.0 mg/dL (<2.0); WBC,Urine 22 /hpf (0-5)
[2019-09-04 07:14] LABS: Anisocytosis Slight; HCT 29.5 % (39.0-53.0); HGB 8.2 gm/dL (13.0-17.5); Hypochromasia Marked; MCH 29.3 pg (25.0-35.0); MCHC 27.9 g/dL (31.0-37.0); Macrocytosis Marked; Mean Platelet Volume 7.1; Platelet Count 165 k/uL (150-450); RBC 2.81 m/uL (4.30-5.90); RDW 17.8 % (11.5-15.5); WBC 31.5 k/uL (3.8-10.6)
[2019-09-04 07:28] LABS: Albumin 2.4 g/dL (3.5-5.0); Calcium 9.1 mg/dL (8.4-10.2); Potassium 5.4 mmol/L (3.5-5.1); Total Bilirubin 0.5 mg/dL (0.2-1.3); Total Protein 5.2 g/dL (6.3-8.2)
[2019-09-04] MEDS: IPRATROPIUM-ALBUTEROL 3 ML NEB INHALATION PRN (08:58)
[2019-09-04 09:23] VITALS: BP 109/58; PULSE 112; RESP 18; TEMP 98.3
[2019-09-04] MEDS: FERROUS SULFATE 325 MG TAB PO SCH (09:25)
[2019-09-04] MEDS: DONEPEZIL 10 MG TAB PO SCH (09:25)
[2019-09-04] MEDS: TAMSULOSIN 0.4 MG CAP.ER.24H PO SCH (09:25)
[2019-09-04] MEDS: MULTIVITAMINS, THERA 1 EACH TAB PO SCH (09:25)
[2019-09-04] MEDS: GABAPENTIN 300 MG CAP PO SCH (09:25)
[2019-09-04] MEDS: FAMOTIDINE 20 MG TAB PO SCH (09:25)
[2019-09-04] MEDS: ASCORBIC ACID 500 MG TAB PO SCH (09:25)
[2019-09-04] MEDS: CHOLECALCIFEROL 1,000 UNIT TAB PO SCH (09:25)
[2019-09-04] MEDS: DOXYCYCLINE 100 MG CAP PO SCH (09:25)
[2019-09-04] MEDS: METOPROLOL SUCCINATE (ER) 50 MG TAB.ER.24H PO SCH (09:25)
[2019-09-04] MEDS: PETROLATUM, WHITE OINT 50 GM TUBE TOPICAL SCH (09:26)
[2019-09-04] MEDS: ARTIFICIAL TEARS-HYPROMELLOSE DROPS 15 ML BTL BOTH EYES SCH (09:26)
--- NOTE | 2019-09-04 09:26 | P.DS ---
Providers Date of admission: 08/29/19 14:57 Expected date of discharge: 09/04/19 Attending physician: Eugenie eRis Consults: 08/29/19 14:57 Consult Physician Urgent Consulting Provider: [facility] Consult Reason/Comments: A. fib with rapid ventricular response Do you want consulting provider notified?: Yes 08/30/19 08:57 Consult Physician Routine Consulting Provider: Sanju Alfred Consult Reason/Comments: eval ESBL abd wound, chron wd R leg, Ert poss tachycard Do you want consulting provider notified?: Yes 08/30/19 08:59 Consult Physician Routine Consulting Provider: Porsche Sloan Consult Reason/Comments: hyperkalemia, ckd Do you want consulting provider notified?: Yes Primary care physician: [facility] Course: 83-year-old male one of my office patient who has been in [facility] for the last 2 years was known to have history of coronary artery disease, A. fib, history of DVT, diabetes, depression and severe neuropathy who also known to have history of MRSA of the right knee for prostatic knee also had post colostomy for perforated bowel from diverticulitis and history of a posterior mellitus in the past. I received a phone call from [facility] with Mr. Damico the nurse complaining of that he is not feeling well and had significant rapid pulse running over 100 2250 bpm with slightly low blood pressure. Not been able to stabilize him in [facility] ended up being transfer to [facility] emergency department where was seen and evaluated he was running in A. fib with rapid ventricular response was not able to control his symptom without IV Cardizem patient is already on anticoagulation his INR was tested and found to be at 2.5. Consult cardiology Patient on Cardizem drip and admit patient to the hospital for the above problem. 08/29: Patient is seen today in the cardiac stepdown unit. campus monitor remains atrial fibrillation with moderately controlled rate. Heart rate is running 95-115. Blood pressure 109/60, pulse ox 99% on 2 L nasal cannula. Patient is reaching 500 on incentive spirometry. Patient has been evaluated by cardiology and Cardizem drip discontinued, metoprolol XL increased to 50 mg twice daily. We will plan to discontinue Coumadin altogether and start the patient on eliquis starting tomorrow. Patient does have some dark red hematuria for which we will reevaluate in the morning. Start eliquis. Patient was ordered for 1 dose of IV Lasix. Echocardiogram reveals EF of 55-60% with moderate concentric left ventricular hypertrophy, trace mitral regurgitation, trace tricuspid regurgitation. Consult added for Dr. Sloan and she has recommended IV bicarb, discontinue Aldactone, discontinue milk of magnesia and sodium biphosphate enema. Post void residual to be checked. Renal ultrasound reveals suboptimal study without hydronephrosis seen bilaterally. Findings consistent with chronic medical renal disease. Consult with Dr. Alfred added for ESBL abdominal wound recently treated at retirement, chronic wound to the right lower extremity which we he is on chronic doxycycline and possibly the ertapenem could have caused tachycardia. Hemoglobin is 10.3 and will be rechecked this afternoon and in the morning. Hemoglobin 10.3 is close to patient's baseline. Patient has been seen by the wound care team and ordered zinc barrier cream to the abdomen and also to the coccyx area along with a foam sacral dressing to be changed daily. 08/30: Patient denies any new complaints. He states he is feeling well today. He denies having any chest pain or palpitations. campus monitor is a sinus rhythm with first-degree block with heart rate running in the 80s, he has been afebrile, blood pressure 96/61, pulse ox 99% on 2 L nasal cannula. Repeat blood work reveals WBC 12.3, hemoglobin 8.3, platelet count 179. INR is 3.0 and eliquis will be placed on hold. Sodium 136, potassium 5.3, chloride 111, CO2 20, BUN 16 creatinine 2.44. Blood sugar 105. Urine culture is in progress. Consult Dr. Alfred is pending. Anticipate discharge back to [facility] on Monday. 08/31: Patient denies any new complaints. Patient continues to be followed by nephrology and is on Lasix 20 mg oral daily and bicarb drip. Patient is known to have significant ecchymosis to the left back and flank and left arm. There is known known falls at the retirement. In no injuries while in the hospital. His INR today is at 2.2 and eliquis will remain on hold and to ecchymosis has cleared. There's been no further hematuria. Hemoglobin is 8.5, WBC 13.5, BUN 63 and creatinine 2.39, CO2 is 24. Urine culture was finalized with no growth. Patient is followed by Dr. Alfred and patient is currently on Invanz. Patient's heart rate has been controlled in the 90s, blood pressure 123/66, patient has been afebrile. campus monitor is sinus rhythm. Incentive spirometry 500 ML's. Plan for discharge back to [facility] tomorrow. 09/01: Patient states that he is not feeling well this morning. His heart rate is running in the 120s. Cardiology had decreased metoprolol succinate 225 mg twice daily due to complaints of dizziness and low blood pressure. Today blood pressure is 119/70, pulse ox is 96% on 2 L nasal cannula, patient afebrile. Repeat INR 1.7. Eliquis will remain on hold. Blood sugars are running [address] Alfred is recommended discontinuing IV antibiotics is no sign of infection at the abdominal ulcer site and no UTI. Urine culture finalized with no growth. Repeat chest x-ray has been ordered for today. And monitor for urinary retention. Repeat lab work ordered for tomorrow. Anticipate possible discharge to [facility] tomorrow. 09/02: Chest x-ray from yesterday reveals pleural effusions with left lower lobe pneumonia and atelectasis that are significantly increased compared to old exam. Mild pulmonary congestion but no obvious heart failure. Pneumonia is doubtful at this time. Patient was started on IV Lasix this morning he received 1 dose of 40 mg in the head of research & insights and will be continued on IV Lasix. He states his breathing is not bad today. Patient did have a significant jump in his white count to 37. 2 and repeated 39.6, hemoglobin is 9.4 platelet count 192. Sodium 136, potassium 5.4, chloride 104, CO2 25, BUN 68 and creatinine 2.18. Blood sugars running between [address] ProBNP [address] Zuñiga has recommended continuing IV Lasix for 24 hours, monitor renal function and urine output and repeat electrolytes. Metoprolol was increased by cardiology yesterday 50 g twice daily with better rate control. Anticipate probable discharge back to [facility] tomorrow. 09/03: This morning, patient's heart rate is running in the 90s, blood pressure 109/58, pulse ox 94% on 2 L nasal cannula. Repeat blood work reveals WBC 31.5, hemoglobin 8.2, platelet count 165. Sodium 134, potassium 5.4, chloride 104, CO2 22, BUN 75 and creatinine 2.3. Plan is for patient be discharged back to [facility] and go under hospice care. Patient is in good spirits today and is anxious to return to [facility]. Patient will be discharged today once arrangements are completed. Discharge diagnoses: 1 paroxysmal atrial fibrillation with rapid ventricular response. 2 history of coronary artery disease 3 elevated troponin secondary to hypoxia and A. fib with RVR. 4 stage IV chronic kidney disease secondary to diabetic nephropathy and nephrosclerosis and acute kidney injury with hyperkalemia and non-gap metabolic acidosis. 5 acute on chronic diastolic heart failure. 6 history of ESBL of the stomach wall soft tissue infection. 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 16. Hematuria. Resolved. 17. Chronic stage II decubitus ulcer to the coccyx region, abdominal ulceration proximal to the colectomy, both present on admission. 18. COVID-19 infection not present. 19. Pyuria without UTI. 20. Anemia of chronic kidney disease. Discharge plan: Return to [facility] on Monday Impression and plan of care have been directed as dictated by the signing physician. Lyndsay Gimenez nurse practitioner acting as scribe for signing physician. Patient Condition at Discharge: Good Plan - Discharge Summary New Discharge Prescriptions: New Gabapentin [Neurontin] 900 mg PO BID@0800,1700 #18 cap Metoprolol Succinate (ER) [Toprol XL] 50 mg PO BID tab.er.24h Zinc Oxide 20% Oint 1 applic TOPICAL DAILY PRN applic PRN Reason: Wound Healing Continue Ascorbic Acid [Vitamin C] 500 mg PO DAILY Ferrous Sulfate [Feosol] 325 mg PO DAILY Cholecalciferol [Vitamin D3 (25 Mcg = 1000 Iu)] 1,000 unit PO DAILY Multivitamins, Thera [Multivitamin (formulary)] 1 tab PO DAILY Famotidine [Pepcid] 20 mg PO DAILY Doxycycline [Vibramycin] 100 mg PO BID@1000,1900 Sucralfate [Carafate] 1 gm PO DAILY@1700 Spironolactone [Aldactone] 25 mg PO DAILY Tamsulosin HCl [Flomax] 0.4 mg PO BID Triamcinolone 0.1% Ointment [Kenalog 0.1% Ointment] 1 applic TOPICAL BID PRN PRN Reason: BULLOUS ARMS & UPPER BACK Magnesium Hydroxide [Milk of Magnesia Concentrate] 30 ml PO DAILY PRN PRN Reason: Constipation Mag Hydrox/Al Hydrox/Simeth [Maalox] 15 ml PO Q6HR PRN PRN Reason: Gi Upset Polyvinyl Alcohol/Povidone [Freshkote Eye Drop] 1 drop BOTH EYES BID@0800,1700 Ipratropium-Albuterol Nebulize [Duoneb 0.5 mg-3 mg/3 ml Soln] 3 ml INHALATION RT-Q6H PRN PRN Reason: Shortness Of Breath Na Phos,M-B/Na Phos,Di-Ba [Fleet Adult] 1 applic RECTAL DAILY PRN PRN Reason: Constipation Bisacodyl [Dulcolax] 10 mg RECTAL DAILY PRN PRN Reason: Constipation Acetaminophen [Tylenol 8 Hour] 650 mg PO Q4H PRN PRN Reason: Pain Or Fever > 100.5 Vitamins A and D [Vitamin A and D] 1 applic TOPICAL TID Rivastigmine Tartrate [Exelon] 3 mg PO BID Niacinamide 500 mg PO BID@0800,1700 Menthol [Biofreeze] 1 applic TOPICAL BID@0800,1700 Lactose-Reduced Food [Ensure Plus] 237 ml PO DAILY Doxepin HCl [SINEquan] 50 mg PO HS Pepto-Bismol Tablet 1 tab PO BID PRN PRN Reason: Gi Upset Hydrocodone/Acetaminophen [[place] 5-325] 1 tab PO HS #3 tab HYDROcodone/APAP 5-325MG [[place] 5-325] 1 tab PO Q8H PRN #9 tab PRN Reason: Pain ALPRAZolam [Xanax] 0.25 mg PO HS #3 tab Changed Furosemide [Lasix] 40 mg PO BID #0 Discontinued Gabapentin [Neurontin] 300 mg PO BID@0800,1700 Metoprolol Succinate [Toprol XL] 25 mg PO DAILY Furosemide [Lasix] 20 mg PO Q48H Gabapentin 600 mg PO BID@0800,1700 Ertapenem [INVanz] 500 mg IVPB DAILY@1700 Warfarin [Coumadin] 3 mg PO WEFRSA@1700 Warfarin [Coumadin] 2 mg PO SUMOTUTH@1700 Discharge Medication List Ascorbic Acid [Vitamin C] 500 mg PO DAILY 09/09/13 [History] Ferrous Sulfate [Feosol] 325 mg PO DAILY 09/09/13 [History] Cholecalciferol [Vitamin D3 (25 Mcg = 1000 Iu)] 1,000 unit PO DAILY 02/04/15 [History] Multivitamins, Thera [Multivitamin (formulary)] 1 tab PO DAILY 02/04/15 [History] Doxycycline [Vibramycin] 100 mg PO BID@1000,1900 05/21/19 [History] Famotidine [Pepcid] 20 mg PO DAILY 05/21/19 [History] Spironolactone [Aldactone] 25 mg PO DAILY 05/21/19 [History] Sucralfate [Carafate] 1 gm PO DAILY@1700 05/21/19 [History] Tamsulosin HCl [Flomax] 0.4 mg PO BID 05/21/19 [History] Bisacodyl [Dulcolax] 10 mg RECTAL DAILY PRN 05/23/19 [History] Ipratropium-Albuterol Nebulize [Duoneb 0.5 mg-3 mg/3 ml Soln] 3 ml INHALATION RT-Q6H PRN 05/23/19 [History] Mag Hydrox/Al Hydrox/Simeth [Maalox] 15 ml PO Q6HR PRN 05/23/19 [History] Magnesium Hydroxide [Milk of Magnesia Concentrate] 30 ml PO DAILY PRN 05/23/19 [History] Na Phos,M-B/Na Phos,Di-Ba [Fleet Adult] 1 applic RECTAL DAILY PRN 05/23/19 [History] Polyvinyl Alcohol/Povidone [Freshkote Eye Drop] 1 drop BOTH EYES BID@0800,1700 05/23/19 [History] Triamcinolone 0.1% Ointment [Kenalog 0.1% Ointment] 1 applic TOPICAL BID PRN 05/23/19 [History] Acetaminophen [Tylenol 8 Hour] 650 mg PO Q4H PRN 08/29/19 [History] Doxepin HCl [SINEquan] 50 mg PO HS 08/29/19 [History] Lactose-Reduced Food [Ensure Plus] 237 ml PO DAILY 08/29/19 [History] Menthol [Biofreeze] 1 applic TOPICAL BID@0800,1700 08/29/19 [History] Niacinamide 500 mg PO BID@0800,1700 08/29/19 [History] Pepto-Bismol Tablet 1 tab PO BID PRN 08/29/19 [History] Rivastigmine Tartrate [Exelon] 3 mg PO BID 08/29/19 [History] Vitamins A and D [Vitamin A and D] 1 applic TOPICAL TID 08/29/19 [History] ALPRAZolam [Xanax] 0.25 mg PO HS #3 tab 09/04/19 [Rx] Furosemide [Lasix] 40 mg PO BID #0 09/04/19 [Rx] Gabapentin [Neurontin] 900 mg PO BID@0800,1700 #18 cap 09/04/19 [Rx] HYDROcodone/APAP 5-325MG [[place] 5-325] 1 tab PO Q8H PRN #9 tab 09/04/19 [Rx] Hydrocodone/Acetaminophen [[place] 5-325] 1 tab PO HS #3 tab 09/04/19 [Rx] Metoprolol Succinate (ER) [Toprol XL] 50 mg PO BID tab.er.24h 09/04/19 [Rx] Zinc Oxide 20% Oint 1 applic TOPICAL DAILY PRN applic 09/04/19 [Rx] Follow up Appointment(s)/Referral(s): Dwayne Coreas MD [Primary Care Provider] - 1 Week (at [facility]) Discharge Disposition: TRANSFER TO SNF/F
[2019-09-04] MEDS: METHYL SALICYLATE/MENTHOL CREAM 5 OZ TOPICAL SCH (09:27)
[2019-09-04] MEDS: FUROSEMIDE 10 MG/ML 4 ML VIAL IV SCH (09:38)
--- NOTE | 2019-09-04 14:08 | P.PN ---
Subjective Progress Note Date: 09/04/19 This is a pleasant 83-year-old gentleman with a history of hypertension, paroxysmal atrial fibrillation, SVT, DVT, diabetes, neuropathy, colostomy, CK D, and anemia. Was admitted for treatment of atrial fibrillation with rapid ventricular response. Initially converted back to sinus rhythm. They have blo cker dose was decreased due to symptomatic hypotension. Heart rate is poorly controlled in the low 100s to 120s. Anticoagulation has been on hold due to hematuria as well as significant ecchymosis involving the left side of his body. 09/03/2019 Patient was seen and examined resting comfortably in bed. Heart rate is better controlled in the 90s. Ecchymosis remains but does not appear to be worse than yesterday. Chest x-ray done yesterday showed pleural effusions with left lower lobe pneumonia which is increased since previous. Labs morning showed hemoglobin stable at 9.4, INR 1.5, potassium 5.4, BUN 16 creatinine 2.18. Coumadin has been on hold. 09/04/2019 Patient was seen and examined resting comfortably in bed. Heart rate is controlled. Continues to have ecchymosis on the left side of his body including his arm, chest and torso. Anticoagulation remains on hold. Labs today showed a hemoglobin of 8.2, white blood cell count 31,500, potassium 5.4, BUN 75 and creatinine 2.3. He is anticipating discharge home today. Objective - Vital Signs Vital signs: Vital Signs Temp 98.3 F 09/04/19 08:00 Pulse 93 09/04/19 09:08 Resp 18 09/04/19 08:00 BP 109/58 09/04/19 08:00 Pulse Ox 94 L 09/04/19 08:00 Intake & Output 09/03/19 09/04/19 09/04/19 18:59 06:59 18:59 Intake Total 240 Output Total 200 200 Balance 240 -200 -200 Weight 79.9 kg 78.5 kg Intake: Oral 240 Output: Stool 200 200 Other: Voiding Method Incontinent Incontinent Incontinent # Voids 1 1 - Exam PHYSICAL EXAMINATION: HEENT: Head is atraumatic, normocephalic. Pupils equal, round. Neck is supple. There is no elevated jugular venous pressure. HEART EXAMINATION: Heart sounds irregularly irregular, S1 and S2 with a systolic murmur. CHEST EXAMINATION: Lungs reveal diminished air entry bilaterally with crackles noted to the bilateral bases. No chest wall tenderness is noted on palpation or with deep breathing. ABDOMEN: Soft, nontender. Bowel sounds are heard. No organomegaly noted. EXTREMITIES: 2+ peripheral pulses with evidence of mild peripheral edema and no calf tenderness noted. NEUROLOGIC patient is awake, alert and oriented x2. . - Labs CBC & Chem 7: 09/04/19 06:07 09/04/19 06:07 Labs: Abnormal Lab Results - Last 24 Hours (Table) 09/03/19 09/04/19 09/04/19 Range/Units 19:40 06:07 06:07 WBC 31.5 H (3.8-10.6) k/uL RBC 2.81 L (4.30-5.90) m/uL Hgb 8.2 L (13.0-17.5) gm/dL Hct 29.5 L (39.0-53.0) % MCV 105.0 H (80.0-100.0) fL MCHC 27.9 L (31.0-37.0) g/dL RDW 17.8 H (11.5-15.5) % Macrocytosis Marked A Sodium 134 L (137-145) mmol/L Potassium 5.4 H (3.5-5.1) mmol/L BUN 75 H (9-20) mg/dL Creatinine 2.30 H (0.66-1.25) mg/dL Total Protein 5.2 L (6.3-8.2) g/dL Albumin 2.4 L (3.5-5.0) g/dL Urine Blood Small H (Negative) Ur Leukocyte Esterase Moderate H (Negative) Urine RBC 7 H (0-5) /hpf Urine WBC 22 H (0-5) /hpf Hyaline Casts 3 H (0-2) /lpf Urine Mucus Rare H (None) /hpf Microbiology - Last 24 Hours (Table) 09/03/19 09:09 Blood Culture - Preliminary Blood No Growth after 24 hours 09/03/19 19:40 Urine Culture - Preliminary Urine,Voided Assessment and Plan Assessment: #1 paroxysmal atrial fibrillation with rapid ventricular response, heart rate currently poorly controlled, anticoagulation on hold due to hematuria and ecchymosis #2 abnormal troponin likely secondary to combination of hypoxia and A. fib with RVR, no significant rise and fall pattern, not consistent with acute coronary event #3 ADA on CKD, followed by nephrology #4 acute on chronic congestive heart failure, diastolic, recent echocardiogram showed ejection fraction 55-60% with moderate concentric LVH #5 COPD #6 dementia #7 history of DVT Plan: From cardiology perspective, medications were reviewed and will continue the same. Diuretics per nephrology. Resume oral anticoagulation when okay with primary. From our standpoint, patient is stable for discharge to ECF. [employer] note has been reviewed, I agree with a documented findings and plan of care. Patient was seen and examined.
[2019-09-04] MEDS ORDERED: FUROSEMIDE 40 MG TAB PO SCH (16:00)
[2019-09-04] MEDS ORDERED: ANIDULAFUNGIN 100 MG in SODIUM CHLORIDE 0.9% 100 ML IVPB SCH (16:00)
--- NOTE | 2019-09-05 10:19 | CDI ---
Documentation Clarification Form Date: 09/05/19 From: Rina Lofton Phone: If you have a question about this query, please contact Lucia Melgar, Track Maintainer at [phone] between 8am and 5pm. Admit Date: 08/29/19 Discharge Date:09/04/19 Patient Name: Raza Damico Visit Number: [id number] ATTENTION: The Clinical Documentation Specialists (CDI) and [facility] Coding Staff appreciate your assistance in clarifying documentation. Please respond to the clarification below the line at the bottom and electronically sign. The CDI & [facility] Coding staff will review the response and follow-up if needed. Please note: Queries are made part of the Legal Health Record. If you have any questions, please contact the author of this message via ITS. Dear Dr. Coreas The patient presented with the following: atrial fibrillation with rapid ventricular response, hyperkalemia and elevated troponins. Documentation in cardiology consult note and progress notes and your progress notes states abnormal troponin likely secondary to combination of hypoxia and A.fib with RVR. History/Risk Factors: Atrial fib with RVR, COPD, acute kidney injury with ATN Clinical Indicators: Decreased O2 sat, shortness of breath Radiology findings: CXR 08/29/19 - Trace pleural effusion and upper limits of normal size of the cardiomediastinal silhouetted. Hypoventilatory lungs. CXR 08/30/19 - Left basilar atelectasis favored over pneumonia correlate clinically. Vital Signs: Admit - T. 98.1, P. 146, R 144, BP 106/83, Pulse Ox. 95% on room air, Pulse Ox on 08/29 93% on 2L O2 per NC at 15:24, Pulse Ox. on 08/30 92% on 2L O2 per NC at 00:00 Other Clinical Indicators: Decreased breath some bilateral rhonchi, no crackles or wheezes. Treatment: O2 at 2 liters per nasal cannula, Albuterol inhalation tx In your professional opinion, can you please clarify the etiology of the hypoxia? Acute respiratory distress Acute Bronchitis Chronic Bronchitis COPD exacerbation Respiratory failure, please specify Acute Acute on Chronic Chronic Other, please specify Unable to determine acute respiratory distress due to AF RVR, glorya MTDD
== END 2019-09-04 11:50 | DRG 308 ==
LOC: EC 12:00 → 3SCARD 14:57
PROVIDERS: ADMIT Family Medicine; ATTEND Family Medicine
DX: I48.0 Paroxysmal atrial fibrillation (principal); I50.33 Acute on chronic diastolic (congestive) heart failure; N17.0 Acute kidney failure with tubular necrosis; E87.2 Acidosis; I13.0 Hypertensive heart and chronic kidney disease with heart failure and stage 1 through stage 4 chronic kidney disease, or unspecified chronic kidney disease; J98.11 Atelectasis; N18.4 Chronic kidney disease, stage 4 (severe); N39.0 Urinary tract infection, site not specified; K94.09 Other complications of colostomy; L89.152 Pressure ulcer of sacral region, stage 2; D63.1 Anemia in chronic kidney disease; L97.529 Non-pressure chronic ulcer of other part of left foot with unspecified severity; E11.22 Type 2 diabetes mellitus with diabetic chronic kidney disease; E11.40 Type 2 diabetes mellitus with diabetic neuropathy, unspecified; E11.621 Type 2 diabetes mellitus with foot ulcer; F02.80 Dementia in other diseases classified elsewhere, unspecified severity, without behavioral disturbance, psychotic disturbance, mood disturbance, and anxiety; G30.9 Alzheimer's disease, unspecified; I95.9 Hypotension, unspecified; L98.491 Non-pressure chronic ulcer of skin of other sites limited to breakdown of skin; J44.9 Chronic obstructive pulmonary disease, unspecified; R06.03 Acute respiratory distress; Z11.59 Encounter for screening for other viral diseases; B96.4 Proteus (mirabilis) (morganii) as the cause of diseases classified elsewhere; E87.5 Hyperkalemia; F32.9 Major depressive disorder, single episode, unspecified; G89.4 Chronic pain syndrome; I25.10 Atherosclerotic heart disease of native coronary artery without angina pectoris; K29.70 Gastritis, unspecified, without bleeding; M81.0 Age-related osteoporosis without current pathological fracture; N40.0 Benign prostatic hyperplasia without lower urinary tract symptoms; R13.10 Dysphagia, unspecified; R32 Unspecified urinary incontinence; E55.9 Vitamin D deficiency, unspecified; K21.9 Gastro-esophageal reflux disease without esophagitis; K57.90 Diverticulosis of intestine, part unspecified, without perforation or abscess without bleeding; R58 Hemorrhage, not elsewhere classified; R31.9 Hematuria, unspecified; R01.1 Cardiac murmur, unspecified; M19.90 Unspecified osteoarthritis, unspecified site; T50.0X5A Adverse effect of mineralocorticoids and their antagonists, initial encounter; R79.89 Other specified abnormal findings of blood chemistry; Z79.01 Long term (current) use of anticoagulants; Z79.899 Other long term (current) drug therapy; Z86.14 Personal history of Methicillin resistant Staphylococcus aureus infection; Z86.19 Personal history of other infectious and parasitic diseases; Z86.718 Personal history of other venous thrombosis and embolism; Z90.49 Acquired absence of other specified parts of digestive tract; Z96.653 Presence of artificial knee joint, bilateral; Z88.0 Allergy status to penicillin; Z88.8 Allergy status to other drugs, medicaments and biological substances; Z88.6 Allergy status to analgesic agent; Z91.040 Latex allergy status; Z82.0 Family history of epilepsy and other diseases of the nervous system; Z83.79 Family history of other diseases of the digestive system
CPT/HCPCS: 36415; 71045; 71046; 76770; 80048; 80051; 80053; 80061; 81001; 82533; 83605; 83735; 83880; 84132; 84443; 84484; 85025; 85027; 85610; 85730; 87040; 87070; 87077; 87086; 87186; 87205; 93005; 93306; 94640; 96365; 96366; 96375; 96376; 99285